=== PATIENT | female | born 1940 | race Asian ===

== ENCOUNTER 2016-12-22 08:53 | Outpatient (CLI) | payer MEDICARE, OTHER | END 2016-12-22 08:54 | disposition home or self-care (01) | DX: N28.9 Disorder of kidney and ureter, unspecified (principal); E78.5 Hyperlipidemia, unspecified; D64.9 Anemia, unspecified ==

== ENCOUNTER 2017-05-04 12:14 | Emergency (ER) | payer MEDICARE, OTHER ==
--- NOTE | 2017-05-04 12:28 | ED Physician Documentation ---
PD HPI CHEST PAIN - Stated complaint Stated Complaint: SLOW HEART BEAT - History obtained from History obtained from: Patient PD PAST MEDICAL HISTORY - Past Medical History Cardiovascular: Hypertension, High cholesterol GI: GERD - Past Surgical History Past Surgical History: Yes Cardiovascular: CABG - Present Medications Home Medications: Ambulatory Orders Medication Instructions Recorded Confirmed Aspirin Chewable [[place] 81 mg PO DAILY 06/04/13 12/04/15 Aspirin] Esomeprazole Magnesium [Nexium] 40 mg PO DAILY 06/04/13 12/04/15 Fluocinonide/Emollient Base 15 gm TP BID 06/04/13 12/04/15 [Fluocinonide-Emol 0.05% Cream] Hydrochlorothiazide 12.5 mg PO DAILY 06/04/13 12/04/15 amLODIPine [Norvasc] 10 mg PO DAILY 06/04/13 12/04/15 Cephalexin [Keflex] 500 mg PO QID 12/04/15 12/04/15 - Allergies Allergies/Adverse Reactions: Allergies Allergy/AdvReac Type Severity Reaction Status Date / Time No Known Drug Allergies Allergy Unverified 06/04/13 10:08 - Social History Does the pt smoke?: No Smoking Status: Never smoker Does the pt drink ETOH?: No Does the pt have substance abuse?: No - Immunizations Immunizations are current?: Yes Results - Vitals Vitals: Vital Signs - 24 hr 05/04/17 12:30 Temperature 36.2 C L Heart Rate 74 Respiratory 18 Rate Blood Pressure 160/77 H O2 Saturation 100 Oxygen O2 Source Room air
--- NOTE | 2017-05-04 13:00 | ED Physician Documentation ---
PD HPI SYNCOPE - Stated complaint Stated Complaint: SLOW HEART BEAT - Chief complaint Chief Complaint: Cardiac - History obtained from History obtained from: Patient - History of Present Illness Witnessed: Witnessed (was walking with friends in [place], up an incline, feeling hot and sweaty, got lightheaded and fainted. She has continued to feel lightheaded to some degree since that time. No near syncope. Seen in office today and had heart rate noted in 40s. Normal BP. Referred to ED for further evaluation.) Timing - onset: How many days ago (2) Duration: Seconds Preceding symptoms: Light headed. No: Headache, Chest pain, Abdominal pain Associated symptoms: No: Incontinant of urine, Headache, Vision changes, Chest pain, Abdominal pain Contributing factors: Decreased PO intake (was eating and drinking normal amount but was sweating and warm the past couple of days.). No: Recent med change, Just stood up Injury occurred: No: Fell, Head injury Similar symptoms before: Has not had sx before Recently seen: Clinic (today) Review of Systems Constitutional: denies: Fever, Chills Nose: denies: Rhinorrhea / runny nose, Congestion Throat: denies: Sore throat Cardiac: reports: Pedal edema (at times, not currently). denies: Chest pain / pressure, Palpitations, Calf pain Respiratory: denies: Cough GI: denies: Nausea, Vomiting, Diarrhea, Bloody / black stool : denies: Dysuria, Frequency Skin: denies: Rash, Lesions Neurologic: denies: Generalized weakness, Focal weakness, Numbness, Altered mental status, Headache Endocrine: denies: Weight loss Immunocompromised: denies: Immunocompromised PD PAST MEDICAL HISTORY - Past Medical History Past Medical History: Yes Cardiovascular: Hypertension, High cholesterol GI: GERD - Past Surgical History Past Surgical History: Yes Cardiovascular: CABG - Present Medications Home Medications: Ambulatory Orders Medication Instructions Recorded Confirmed Aspirin Chewable [[place] 81 mg PO DAILY 06/04/13 12/04/15 Aspirin] Esomeprazole Magnesium [Nexium] 40 mg PO DAILY 06/04/13 12/04/15 Fluocinonide/Emollient Base 15 gm TP BID 06/04/13 12/04/15 [Fluocinonide-Emol 0.05% Cream] Hydrochlorothiazide 12.5 mg PO DAILY 06/04/13 12/04/15 amLODIPine [Norvasc] 10 mg PO DAILY 06/04/13 12/04/15 Cephalexin [Keflex] 500 mg PO QID 12/04/15 12/04/15 - Allergies Allergies/Adverse Reactions: Allergies Allergy/AdvReac Type Severity Reaction Status Date / Time No Known Drug Allergies Allergy Unverified 06/04/13 10:08 - Living Situation Living Arrangement: reports: At home - Social History Does the pt smoke?: No Smoking Status: Never smoker Does the pt drink ETOH?: No Does the pt have substance abuse?: No - Immunizations Immunizations are current?: Yes PD ED PE NORMAL - Vitals Vital signs reviewed: Yes - General General: Alert and oriented X 3, No acute distress, Well developed/nourished - HEENT HEENT: Moist mucous membranes, Pharynx benign - Neck Neck: Supple, no meningeal sign, No adenopathy - Cardiac Cardiac: RRR, No murmur - Respiratory Respiratory: Clear bilaterally - Abdomen Abdomen: Soft, Non tender - Back Back: No CVA TTP, No spinal TTP - Derm Derm: Normal color, Warm and dry - Extremities Extremities: No tenderness to palpate, Normal ROM s pain, No edema, No calf tenderness / cord - Neuro Neuro: Alert and oriented X 3, health information administrator 2-12 intact, No motor deficit, No sensory deficit, Normal speech, Other - Psych Psych: Normal mood, Normal affect Results - Vitals Vitals: Oxygen O2 Source Room air - Labs Labs: Laboratory Tests 05/04/17 05/04/17 05/04/17 13:11 13:11 13:11 WBC 5.3 RBC 3.88 L Hgb 12.2 Hct 36.0 L MCV 92.8 MCH 31.4 H MCHC 33.8 RDW 13.2 Plt Count 247 MPV 8.0 Neut # 3.0 Lymph # 1.3 L Webb # 0.7 Eos # 0.2 Baso # 0.0 Absolute Nucleated RBC 0.00 Nucleated RBCs 0.0 Sodium 132 L Potassium 3.9 Chloride 101 Carbon Dioxide 21 Anion Gap 10.0 BUN 32 H Creatinine 1.7 H Estimated GFR (MDRD) 29 L Glucose 102 H Calcium 9.8 Magnesium 1.8 Total Bilirubin 1.2 H AST 40 ALT 33 Alkaline Phosphatase 166 H Troponin I < 0.04 Total Protein 8.6 H Albumin 4.2 Globulin 4.4 H Albumin/Globulin Ratio 1.0 Lipase 50 TSH 05/04/17 13:11 WBC RBC Hgb Hct MCV MCH MCHC RDW Plt Count MPV Neut # Lymph # Webb # Eos # Baso # Absolute Nucleated RBC Nucleated RBCs Sodium Potassium Chloride Carbon Dioxide Anion Gap BUN Creatinine Estimated GFR (MDRD) Glucose Calcium Magnesium Total Bilirubin AST ALT Alkaline Phosphatase Troponin I Total Protein Albumin Globulin Albumin/Globulin Ratio Lipase TSH 2.03 Departure - Departure Disposition: 01 Home, Self Care Clinical Impression: Bradycardia Syncope Qualifiers: Syncope type: unspecified Qualified Code(s): R55 - Syncope and collapse Condition: Stable Record reviewed to determine appropriate education?: Yes Instructions: ED Fainting Unkn Cause Follow-Up: Rik Magallon MD [Primary Care Provider] - Comments: Your heart rate has been normal here. Your basic blood tests are looking okay. No signs of heart attack or heart failure. At this point drink adequate fluids. Continue current medications. Follow-up with your primary care early next week. They potentially may want to do a portable heart monitor that you wear for several days to a week to ensure your heart rate does not go slow at other times. Recheck if recurrent symptoms of lightheadedness or fainting. Discharge Date/Time: 05/04/17 15:32
[2017-05-04 13:18] LABS: BASOPHILS % (AUTO) 0.9 %; EOSINOPHILS # (AUTO) 0.2 10^3/uL (0.0-0.7); EOSINOPHILS % (AUTO) 2.9 %; HGB - HEMOGLOBIN 12.2 g/dL (12.0-16.0); LYMPHOCYTES # (AUTO) 1.3 10^3/uL (1.5-3.5); LYMPHOCYTES % (AUTO) 25.5 %; MEAN CORPUSCULAR HEMOGLOBIN 31.4 pg (27.0-31.0); MEAN CORPUSCULAR HGB CONC 33.8 g/dL (32.0-36.0); MEAN CORPUSCULAR VOLUME 92.8 fL (81.0-99.0); MONOCYTES # (AUTO) 0.7 10^3/uL (0.0-1.0); MONOCYTES % (AUTO) 13.4 %; NEUTROPHILS % (AUTO) 57.3 %; RED BLOOD COUNT 3.88 10^6/uL (4.20-5.40); RED CELL DISTRIBUTION WIDTH 13.2 % (12.0-15.0); UNCORRECTED WHITE BLOOD COUNT 5.3 x10^3/uL; WHITE BLOOD COUNT 5.3 x10^3/uL (4.8-10.8)
[2017-05-04 13:34] LABS: BILIRUBIN,TOTAL 1.2 mg/dL (0.2-1.0); CALCIUM 9.8 mg/dL (8.5-10.3); CREATININE 1.7 mg/dL (0.4-1.0); MAGNESIUM 1.8 mg/dL (1.7-2.8); POTASSIUM 3.9 mmol/L (3.5-5.0); TOTAL PROTEIN 8.6 g/dL (6.7-8.2)
[2017-05-04 15:32] VITALS: BP 127/62
== END 2017-05-04 15:32 | disposition home or self-care (01) ==
LOC: ED 12:14
DX: R00.1 Bradycardia, unspecified (principal); R55 Syncope and collapse; I10 Essential (primary) hypertension; E78.00 Pure hypercholesterolemia, unspecified; I25.10 Atherosclerotic heart disease of native coronary artery without angina pectoris; Z95.1 Presence of aortocoronary bypass graft; K21.9 Gastro-esophageal reflux disease without esophagitis; Z79.82 Long term (current) use of aspirin
CPT/HCPCS: 36415; 80053; 83690; 83735; 84443; 84484; 85025; 93005; 99283; 99284

== ENCOUNTER 2017-05-10 11:13 | Outpatient (CLI) | payer MEDICARE, OTHER ==
--- NOTE | 2017-05-11 15:46 | Mammography Report ---
DIGITAL SCREENING MAMMOGRAM: 05/10/2017 CLINICAL INDICATION: A 77-year-old with family history of breast cancer, for screening. COMPARISON: 11/2009, 10/2007. TECHNIQUE: Routine CC and MLO projections were obtained of the breasts. FINDINGS: Scattered fibroglandular tissue is present within the breasts. There are no dominant natali s, suspicious microcalcifications, or secondary signs of malignancy. In comparison to the previous st udies, there are no significant changes. ASSESSMENT: NO MAMMOGRAPHIC EVIDENCE OF MALIGNANCY. NO SIGNIFICANT INTERVAL CHANGES. RECOMMENDATION: Screening mammography is recommended annually. BIRADS category 1 - negative. STANDARD QUALIFYING STATEMENTS 1. This examination was reviewed with the aid of Computed-Aided Detection (CAD). 2. A negative or benign imaging report should not delay biopsy if clinically suspicious findings are present. Consider surgical consultation if warranted. More than 5% of cancers are not identified by i maging. 3. Dense breasts may obscure an underlying neoplasm. JOB #: [id number] EXT JOB #:[id number]
== END 2017-05-10 11:14 | disposition home or self-care (01) ==
LOC: DI.N 11:13
PROVIDERS: ATTEND Family Medicine
DX: Z12.31 Encounter for screening mammogram for malignant neoplasm of breast (principal)
CPT/HCPCS: 77067

== ENCOUNTER 2017-05-10 20:17 | Outpatient (CLI) | payer MEDICARE, OTHER ==
[2017-05-10 19:06] LABS: BASOPHILS % (AUTO) 0.5 %; EOSINOPHILS # (AUTO) 0.2 10^3/uL (0.0-0.7); HCT - HEMATOCRIT 36.2 % (37.0-47.0); LYMPHOCYTES # (AUTO) 1.6 10^3/uL (1.5-3.5); LYMPHOCYTES % (AUTO) 30.2 %; MEAN CORPUSCULAR HEMOGLOBIN 31.3 pg (27.0-31.0); MEAN CORPUSCULAR HGB CONC 33.1 g/dL (32.0-36.0); MEAN CORPUSCULAR VOLUME 94.6 fL (81.0-99.0); MEAN PLATELET VOLUME 9.7 fL (7.9-10.8); MONOCYTES # (AUTO) 0.7 10^3/uL (0.0-1.0); MONOCYTES % (AUTO) 14.1 %; NEUTROPHILS # (AUTO) 2.8 10^3/uL (1.5-6.6); NEUTROPHILS % (AUTO) 52.2 %; NUCLEATED RED BLOOD CELLS AUTO 0.1 /100WBC; RED BLOOD COUNT 3.83 10^6/uL (4.20-5.40); RED CELL DISTRIBUTION WIDTH 12.7 % (12.0-15.0); UNCORRECTED WHITE BLOOD COUNT 5.3 x10^3/uL; WHITE BLOOD COUNT 5.3 x10^3/uL (4.8-10.8)
[2017-05-10 19:12] LABS: CALCIUM 9.6 mg/dL (8.5-10.3); CREATININE 1.8 mg/dL (0.4-1.0); POTASSIUM 3.6 mmol/L (3.5-5.0)
== END 2017-05-10 20:18 | disposition home or self-care (01) ==
LOC: LAB.WCP 20:17
PROVIDERS: ATTEND Family Medicine
DX: R00.1 Bradycardia, unspecified (principal); I10 Essential (primary) hypertension; R55 Syncope and collapse; N28.9 Disorder of kidney and ureter, unspecified; D64.9 Anemia, unspecified
CPT/HCPCS: 36415; 80048; 84443; 85025

== ENCOUNTER 2017-05-15 17:36 | Outpatient (CLI) | payer MEDICARE, OTHER ==
[2017-05-15 13:17] LABS: CALCIUM 9.7 mg/dL (8.5-10.3); CREATININE 1.5 mg/dL (0.4-1.0); POTASSIUM 3.6 mmol/L (3.5-5.0)
== END 2017-05-15 17:37 | disposition home or self-care (01) ==
LOC: LAB.WCP 17:36
PROVIDERS: ATTEND Family Medicine
DX: E87.1 Hypo-osmolality and hyponatremia (principal)
CPT/HCPCS: 36415; 80048

== ENCOUNTER 2017-05-22 10:25 | Outpatient (CLI) | payer MEDICARE, OTHER ==
[2017-05-22 19:35] LABS: CALCIUM 9.9 mg/dL (8.5-10.3); CREATININE 1.3 mg/dL (0.4-1.0); POTASSIUM 3.9 mmol/L (3.5-5.0)
== END 2017-05-22 10:26 | disposition home or self-care (01) ==
LOC: LAB.WCP 10:25
PROVIDERS: ATTEND Family Medicine
DX: E78.1 Pure hyperglyceridemia (principal)
CPT/HCPCS: 36415; 80048

== ENCOUNTER 2017-06-28 14:47 | Outpatient (CLI) | payer MEDICARE, OTHER ==
[2017-06-28 19:49] LABS: CREATININE 1.5 mg/dL (0.4-1.0); POTASSIUM 4.2 mmol/L (3.5-5.0)
== END 2017-06-28 14:48 | disposition home or self-care (01) ==
LOC: LAB.WCP 14:47
PROVIDERS: ATTEND Family Medicine
DX: E87.1 Hypo-osmolality and hyponatremia (principal)
CPT/HCPCS: 36415; 80048

== ENCOUNTER 2017-08-03 08:00 | Outpatient (CLI) | payer MEDICARE, OTHER | END 2017-08-03 08:01 | disposition home or self-care (01) | LOC: LAB.WCP 08:00 | PROVIDERS: ATTEND Family Medicine | DX: L25.9 Unspecified contact dermatitis, unspecified cause (principal) | CPT/HCPCS: 87070; 87205 ==

== ENCOUNTER 2018-05-28 08:51 | Outpatient (CLI) | payer MEDICARE, OTHER ==
[2018-05-28 12:14] LABS: BASOPHILS % (AUTO) 0.8 %; EOSINOPHILS # (AUTO) 0.2 10^3/uL (0.0-0.7); EOSINOPHILS % (AUTO) 5.1 %; HGB - HEMOGLOBIN 13.4 g/dL (12.0-16.0); LYMPHOCYTES # (AUTO) 1.9 10^3/uL (1.5-3.5); LYMPHOCYTES % (AUTO) 38.7 %; MEAN CORPUSCULAR HEMOGLOBIN 33.5 pg (27.0-31.0); MEAN CORPUSCULAR HGB CONC 34.2 g/dL (32.0-36.0); MEAN CORPUSCULAR VOLUME 97.8 fL (81.0-99.0); MONOCYTES # (AUTO) 0.7 10^3/uL (0.0-1.0); MONOCYTES % (AUTO) 13.8 %; NEUTROPHILS % (AUTO) 41.6 %; PLT - PLATELET COUNT 215 10^3/uL (130-450); RED CELL DISTRIBUTION WIDTH 13.6 % (12.0-15.0); WHITE BLOOD COUNT 4.9 x10^3/uL (4.8-10.8)
[2018-05-28 12:32] LABS: ALBUMIN 3.5 g/dL (3.2-5.5); ALBUMIN/GLOBULIN RATIO 0.6 (1.0-2.2); ALKALINE PHOSPHATASE 102 IU/L (42-121); ALT ALANINE AMINOTRANSFERASE 102 IU/L (10-60); AST ASPARTATE AMINOTRANSFERASE 144 IU/L (10-42); BILIRUBIN,TOTAL 1.7 mg/dL (0.2-1.0); BUN - BLOOD UREA NITROGEN 26 mg/dL (6-20); CALCIUM 9.4 mg/dL (8.5-10.3); CARBON DIOXIDE - CO2 22 mmol/L (21-32); CHLORIDE 106 mmol/L (101-111); CHOL/HDL RATIO 3.8 (<4.4); CHOLESTEROL 197 mg/dL; CREATININE 1.3 mg/dL (0.4-1.0); GFR - MDRD 40 (>89); GLUCOSE 107 mg/dL (70-100); HDL CHOLESTEROL 52 mg/dL; LDL CHOLESTEROL,CALCULATED 116 mg/dL; LDL/HDL RATIO 2.2 (<4.4); SODIUM 136 mmol/L (135-145); TOTAL PROTEIN 9.5 g/dL (6.7-8.2); VLDL CHOLESTEROL 29 mg/dL
== END 2018-05-28 08:52 ==
LOC: LAB.WCP 08:51
PROVIDERS: ATTEND Family Medicine
DX: E78.5 Hyperlipidemia, unspecified (principal); R42 Dizziness and giddiness; N28.9 Disorder of kidney and ureter, unspecified; D64.9 Anemia, unspecified; F41.9 Anxiety disorder, unspecified; E87.1 Hypo-osmolality and hyponatremia; I10 Essential (primary) hypertension
CPT/HCPCS: 36415; 80053; 80061; 83721; 84443; 85025

== ENCOUNTER 2019-02-26 08:08 | Outpatient (CLI) | payer MEDICARE, OTHER ==
[2019-02-26 13:24] LABS: BASOPHILS # (AUTO) 0.1 10^3/uL (0.0-0.1); BASOPHILS % (AUTO) 1.4 %; EOSINOPHILS # (AUTO) 0.2 10^3/uL (0.0-0.7); EOSINOPHILS % (AUTO) 3.1 %; HGB - HEMOGLOBIN 12.4 g/dL (12.0-16.0); LYMPHOCYTES % (AUTO) 40.3 %; MEAN CORPUSCULAR HEMOGLOBIN 33.3 pg (27.0-31.0); MEAN CORPUSCULAR HGB CONC 33.3 g/dL (32.0-36.0); MEAN CORPUSCULAR VOLUME 100.2 fL (81.0-99.0); MEAN PLATELET VOLUME 10.2 fL (7.9-10.8); MONOCYTES # (AUTO) 0.7 10^3/uL (0.0-1.0); MONOCYTES % (AUTO) 13.1 %; NEUTROPHILS # (AUTO) 2.1 10^3/uL (1.5-6.6); NEUTROPHILS % (AUTO) 42.1 %; PLT - PLATELET COUNT 203 10^3/uL (130-450); RED BLOOD COUNT 3.73 10^6/uL (4.20-5.40); RED CELL DISTRIBUTION WIDTH 13.1 % (12.0-15.0); WHITE BLOOD COUNT 5.1 x10^3/uL (4.8-10.8)
[2019-02-26 13:39] LABS: ALBUMIN/GLOBULIN RATIO 0.5 (1.0-2.2); ALKALINE PHOSPHATASE 113 IU/L (42-121); ALT ALANINE AMINOTRANSFERASE 129 IU/L (10-60); AST ASPARTATE AMINOTRANSFERASE 216 IU/L (10-42); BILIRUBIN,TOTAL 1.1 mg/dL (0.2-1.0); BUN - BLOOD UREA NITROGEN 21 mg/dL (6-20); CALCIUM 9.1 mg/dL (8.5-10.3); CARBON DIOXIDE - CO2 21 mmol/L (21-32); CHLORIDE 106 mmol/L (101-111); CHOL/HDL RATIO 3.7 (<4.4); CHOLESTEROL 174 mg/dL; CREATININE 1.3 mg/dL (0.4-1.0); GFR - MDRD 39 (>89); GLUCOSE 97 mg/dL (70-100); HDL CHOLESTEROL 47 mg/dL; LDL CHOLESTEROL,CALCULATED 102 mg/dL; LDL/HDL RATIO 2.2 (<4.4); SODIUM 136 mmol/L (135-145); TOTAL PROTEIN 8.9 g/dL (6.7-8.2); VLDL CHOLESTEROL 25 mg/dL
== END 2019-02-26 08:09 | disposition home or self-care (01) ==
LOC: LAB.WCP 08:08
PROVIDERS: ATTEND Family Medicine
DX: N28.9 Disorder of kidney and ureter, unspecified (principal); E78.5 Hyperlipidemia, unspecified; D64.9 Anemia, unspecified
CPT/HCPCS: 36415; 80053; 80061; 83721; 85025

== ENCOUNTER 2019-03-06 08:00 | Outpatient (CLI) | payer MEDICARE, OTHER ==
[2019-03-06 19:05] LABS: ALBUMIN 3.4 g/dL (3.2-5.5); ALBUMIN/GLOBULIN RATIO 0.5 (1.0-2.2); BILIRUBIN,TOTAL 1.9 mg/dL (0.2-1.0); CALCIUM 9.1 mg/dL (8.5-10.3); CREATININE 1.3 mg/dL (0.4-1.0)
[2019-03-07 14:11] LABS: HEPATITIS B SURFACE ANTIGEN NON-REACTIVE (NON-REACTIVE); HEPATITIS C ANTIBODY NON-REACTIVE (NON-REACTIVE)
== END 2019-03-06 23:59 | disposition home or self-care (01) ==
LOC: LAB.WCP 08:00
PROVIDERS: ATTEND Family Medicine
DX: R74.8 Abnormal levels of other serum enzymes (principal)
CPT/HCPCS: 36415; 80053; 86317; 86704; 86709; 86803; 87340

== ENCOUNTER 2019-03-13 07:11 | Outpatient (CLI) | payer MEDICARE, OTHER ==
--- NOTE | 2019-03-13 11:49 | Ultrasound Report ---
Reason: ELEVATED LIVER ENZYMES Procedure Date: 03/13/2019 Accession Number: [id number] / [id number] Procedure: US - Abdomen Complete CPT Code: FULL RESULT: EXAM: ABDOMEN ULTRASOUND EXAM DATE: 03/13/2019 08:13 AM. CLINICAL HISTORY: Elevated liver enzymes. COMPARISON: None. TECHNIQUE: Real-time scanning was performed with static images obtained. FINDINGS: Liver: Size of the liver appears subjectively small with nodular contour and heterogeneous echotexture which limits evaluation for masses, no masses seen. Maximal dimension is at least 14.4 cm. Main portal vein flow: Hepatopetal. Gallbladder: Calculi is seen within the gallbladder, not all are mobile and the gallbladder is distended. The sonographic Comer sign is negative. There is no pericholecystic fluid or thickening of the gallbladder wall. Biliary System: Common bile duct measures 7 mm. No intrahepatic or extrahepatic ductal dilatation. Pancreas: Visualized portion is unremarkable. Kidneys: Right: 11.1 cm longitudinally. Normal. No contour-deforming mass, stones, or hydronephrosis. Left: 11.4 cm longitudinally. Normal. No contour-deforming mass, stones, or hydronephrosis. Spleen: 10.8 cm. Normal in size and echotexture. Aorta and Inferior Vena Cava: Unremarkable. Other: None. IMPRESSION: Cholelithiasis without sonographic findings of cholecystitis. Suggestion of cirrhotic configuration of liver parenchyma. RADIA
== END 2019-03-13 07:12 | disposition home or self-care (01) ==
LOC: DI 07:11
PROVIDERS: ATTEND Family Medicine
DX: K80.20 Calculus of gallbladder without cholecystitis without obstruction (principal)
CPT/HCPCS: 76700

== ENCOUNTER 2020-01-30 07:00 | Outpatient (CLI) | payer MEDICARE, OTHER ==
[2020-01-30 12:54] LABS: BASOPHILS # (AUTO) 0.1 10^3/uL (0.0-0.1); EOSINOPHILS # (AUTO) 0.2 10^3/uL (0.0-0.7); EOSINOPHILS % (AUTO) 3.3 %; HGB - HEMOGLOBIN 11.6 g/dL (12.0-16.0); LYMPHOCYTES # (AUTO) 2.2 10^3/uL (1.5-3.5); LYMPHOCYTES % (AUTO) 38.4 %; MEAN CORPUSCULAR HEMOGLOBIN 32.4 pg (27.0-31.0); MEAN CORPUSCULAR HGB CONC 32.9 g/dL (32.0-36.0); MEAN CORPUSCULAR VOLUME 98.6 fL (81.0-99.0); MEAN PLATELET VOLUME 11.5 fL (7.9-10.8); MONOCYTES # (AUTO) 0.5 10^3/uL (0.0-1.0); MONOCYTES % (AUTO) 9.4 %; NEUTROPHILS # (AUTO) 2.7 10^3/uL (1.5-6.6); NEUTROPHILS % (AUTO) 47.6 %; PLT - PLATELET COUNT 210 10^3/uL (130-450); RED BLOOD COUNT 3.58 10^6/uL (4.20-5.40); RED CELL DISTRIBUTION WIDTH 13.5 % (12.0-15.0); WHITE BLOOD COUNT 5.7 x10^3/uL (4.8-10.8)
[2020-01-30 13:06] LABS: INR 1.2 (0.8-1.2); PT - PROTHROMBIN TIME 13.7 secs (9.9-12.6)
[2020-01-30 13:49] LABS: % IRON SATURATION 26 % (20-50); ALBUMIN 2.8 g/dL (3.2-5.5); ALBUMIN/GLOBULIN RATIO 0.4 (1.0-2.2); ALKALINE PHOSPHATASE 253 IU/L (42-121); ALT ALANINE AMINOTRANSFERASE 86 IU/L (10-60); AST ASPARTATE AMINOTRANSFERASE 133 IU/L (10-42); BILIRUBIN,TOTAL 1.7 mg/dL (0.2-1.0); BUN - BLOOD UREA NITROGEN 18 mg/dL (6-20); CARBON DIOXIDE - CO2 21 mmol/L (21-32); CHLORIDE 105 mmol/L (101-111); CHOL/HDL RATIO 6.3 (<4.4); CHOLESTEROL 233 mg/dL; CREATININE 1.2 mg/dL (0.4-1.0); GLUCOSE 101 mg/dL (70-100); HDL CHOLESTEROL 37 mg/dL; IRON 87 ug/dL (28-170); LDL CHOLESTEROL,CALCULATED 175 mg/dL; LDL/HDL RATIO 4.7 (<4.4); SODIUM 132 mmol/L (135-145); TOTAL IRON BINDING CAPACITY 339 ug/dL (250-450); TOTAL PROTEIN 10.1 g/dL (6.7-8.2); TRANSFERRIN 242 mg/dL (192-382); VLDL CHOLESTEROL 21 mg/dL
== END 2020-01-30 23:59 | disposition home or self-care (01) ==
LOC: LAB.WCP 07:00
PROVIDERS: ATTEND Family Medicine
DX: E78.5 Hyperlipidemia, unspecified (principal); D64.9 Anemia, unspecified; R94.5 Abnormal results of liver function studies
CPT/HCPCS: 36415; 80053; 80061; 82728; 83540; 83721; 84466; 85025; 85610

== ENCOUNTER 2020-02-05 08:34 | Outpatient (CLI) | payer MEDICARE, OTHER ==
[2020-02-07 23:20] LABS: LIVER KIDNEY MICROSOME AB <20.0 U
== END 2020-02-05 23:59 | disposition home or self-care (01) ==
LOC: LAB.WCP 08:34
PROVIDERS: ATTEND Family Medicine
DX: K74.60 Unspecified cirrhosis of liver (principal)
CPT/HCPCS: 36415; 81599; 82103; 82390; 86038; 86376

== ENCOUNTER 2020-07-15 16:07 | Emergency (ER) | payer MEDICARE, OTHER ==
--- NOTE | 2020-07-15 16:44 | ED Physician Documentation ---
PD HPI DYSPNEA - Stated complaint Stated Complaint: SOA, "BRAIN FOG" - Chief complaint Chief Complaint: Resp - History obtained from History obtained from: Patient - History of Present Illness Timing - onset: How many days ago (several) Timing - onset during: Rest (now dyspnea even at rest.), Light activity (initially) Timing - duration: Days (several) Timing - details: Gradual onset, Still present (considerably worse over just few days) Inciting event(s): No: Out of meds, URI Improved by: Rest, Sitting up Worsened by: Exertion (minimal, just walking 15-20 feet to bathroom, consicderable dyspnea now.) Associated symptoms: Chest pain / discomfort (tightness), Bilateral edema (mild). No: Fever, Cough, Wheezing Similar symptoms before: Diagnosis (had CAD in the past, with CABG about 5 years ago, and was doing okay. Has not seen Tool Checker for couple of years. Had CABG at [facility]. Not sure of balance assembler (seen in clinic in [place]).) Recently seen: Not recently seen Review of Systems Constitutional: denies: Fever, Chills Nose: denies: Rhinorrhea / runny nose, Congestion Throat: denies: Sore throat Cardiac: reports: Chest pain / pressure (tightness), Pedal edema (mild). denies: Palpitations, Calf pain Respiratory: reports: Dyspnea. denies: Cough, Wheezing GI: denies: Abdominal Pain, Nausea, Vomiting, Diarrhea, Bloody / black stool Skin: denies: Rash, Lesions Neurologic: reports: Generalized weakness. denies: Focal weakness, Numbness, Near syncope Endocrine: denies: Easy bruising / bleeding PD PAST MEDICAL HISTORY - Past Medical History Cardiovascular: Hypertension, High cholesterol Respiratory: None Neuro: None Endocrine/Autoimmune: None GI: GERD - Past Surgical History Past Surgical History: Yes Cardiovascular: CABG - Present Medications Home Medications: Ambulatory Orders Medication Instructions Recorded Confirmed Aspirin Chewable [[place] 81 mg PO DAILY 06/04/13 12/04/15 Aspirin] Esomeprazole Magnesium [Nexium] 40 mg PO DAILY 06/04/13 12/04/15 Fluocinonide/Emollient Base 15 gm TP BID 06/04/13 12/04/15 [Fluocinonide-Emol 0.05% Cream] Hydrochlorothiazide 12.5 mg PO DAILY 06/04/13 12/04/15 amLODIPine [Norvasc] 10 mg PO DAILY 06/04/13 12/04/15 Cephalexin [Keflex] 500 mg PO QID 12/04/15 12/04/15 - Allergies Allergies/Adverse Reactions: Allergies Allergy/AdvReac Type Severity Reaction Status Date / Time No Known Drug Allergies Allergy Unverified 07/15/20 16:26 - Living Situation Living Situation: reports: With spouse/s.o. Living Arrangement: reports: At home - Social History Does the pt smoke?: No Smoking Status: Never smoker Does the pt drink ETOH?: No Does the pt have substance abuse?: No - Immunizations Immunizations are current?: Yes PD ED PE NORMAL - Vitals Vital signs reviewed: Yes - General General: Alert and oriented X 3, No acute distress (when rested, but has considerable dyspnea just walking to bathroom in room.), Well developed/nourished - HEENT HEENT: Pharynx benign - Neck Neck: Supple, no meningeal sign, No adenopathy - Cardiac Cardiac: Other (1/6 murmur left sternal border). No: RRR (irregular but rate controlled) - Respiratory Respiratory: No: Clear bilaterally (fine crackles lower third both sides. No wheezing nor coarse sounds. ) - Abdomen Abdomen: Soft, Non tender - Back Back: No CVA TTP - Derm Derm: Normal color, Warm and dry - Extremities Extremities: No deformity, No tenderness to palpate, No calf tenderness / cord, Other (mild 1+ edema both lower legs.) - Neuro Neuro: Alert and oriented X 3, No motor deficit, Normal speech Results - Vitals Vitals: Vital Signs - 24 hr 07/15/20 07/15/20 07/15/20 16:21 18:26 20:00 Temperature 36.6 C Heart Rate 84 74 77 Respiratory 14 18 21 Rate Blood Pressure 123/70 132/67 H 120/71 O2 Saturation 98 99 95 07/15/20 20:47 Temperature 36.8 C Heart Rate 77 Respiratory 18 Rate Blood Pressure 122/80 O2 Saturation 98 Oxygen O2 Source Room air - EKG (time done) 16:18 Rate: Rate (enter#) (90) Rhythm: Atrial fibrillation [place]: Normal QRS: Poor R wave progression Ischemia: ST depression (lateral leads, mild), T wave inversion. No: ST elevation c/w ischemia Compare to prior EKG: Old EKG unavailable - Labs Labs: Microbiology 07/15/20 17:58 Occult Blood - Final Stool Laboratory Tests 07/15/20 07/15/20 07/15/20 16:46 16:46 16:46 WBC 6.8 RBC 2.58 L Hgb 8.3 L Hct 25.0 L MCV 96.9 MCH 32.2 H MCHC 33.2 RDW 15.1 H Plt Count 256 MPV 10.1 Neut # (Auto) 4.1 Lymph # (Auto) 1.7 [place] # (Auto) 0.8 Eos # (Auto) 0.1 Baso # (Auto) 0.1 Absolute Nucleated RBC 0.00 Nucleated RBC % 0.0 Sodium 130 L Potassium 3.5 Chloride 105 Carbon Dioxide 14 L Anion Gap 11.0 BUN 31 H Creatinine 1.8 H Estimated GFR (MDRD) 27 L Glucose 160 H Calcium 8.5 Magnesium 2.0 Iron TIBC % Saturation Transferrin Total Bilirubin 5.5 H AST 192 H ALT 81 H Alkaline Phosphatase 324 H Troponin I High Sens 27.1 H* B-Natriuretic Peptide Total Protein 9.9 H Albumin 2.2 L Globulin 7.7 H Albumin/Globulin Ratio 0.3 L Lipase 73 H 07/15/20 07/15/20 07/15/20 16:46 16:46 19:12 WBC RBC Hgb Hct MCV MCH MCHC RDW Plt Count MPV Neut # (Auto) Lymph # (Auto) [place] # (Auto) Eos # (Auto) Baso # (Auto) Absolute Nucleated RBC Nucleated RBC % Sodium Potassium Chloride Carbon Dioxide Anion Gap BUN Creatinine Estimated GFR (MDRD) Glucose Calcium Magnesium Iron 49 TIBC 402 % Saturation 12 L Transferrin 287 Total Bilirubin AST ALT Alkaline Phosphatase Troponin I High Sens 25.7 H* B-Natriuretic Peptide 1203 H Total Protein Albumin Globulin Albumin/Globulin Ratio Lipase - Rads (name of study) chest xray Radiology: Prelim report reviewed (enlarged heart, vascular congestion c/w CHF. ), See rad report PD MEDICAL DECISION MAKING - ED course Complexity details: reviewed results, considered differential (patient with good sats, but very marked VIERA just to bathroom (15 feet). Has findings c/w CHF, but ECG with some ischemia. So concerning for ischemic cause/heart failure/ unstable angina. Needs to have cardiac eval.), d/w patient, d/w account consultant (Hospitalist at [facility], who accepts transfer of patient to higher level of care. ) Departure - Departure Disposition: 02 Transfer Acute Care Hosp Clinical Impression: Acute dyspnea, Cardiac ischemia, Elevated liver enzymes Anemia, iron deficiency Qualifiers: Iron deficiency anemia type: unspecified iron deficiency Qualified Code(s): D50.9 - Iron deficiency anemia, unspecified CHF (congestive heart failure) Qualifiers: Heart failure type: unspecified Heart failure chronicity: unspecified Qualified Code(s): I50.9 - Heart failure, unspecified Condition: Stable Record reviewed to determine appropriate education?: Yes Discharge Date/Time: 07/15/20 18:44
[2020-07-15 16:56] LABS: BASOPHILS # (AUTO) 0.1 10^3/uL (0.0-0.1); BASOPHILS % (AUTO) 1.5 %; EOSINOPHILS # (AUTO) 0.1 10^3/uL (0.0-0.7); EOSINOPHILS % (AUTO) 1.3 %; HGB - HEMOGLOBIN 8.3 g/dL (12.0-16.0); LYMPHOCYTES # (AUTO) 1.7 10^3/uL (1.5-3.5); LYMPHOCYTES % (AUTO) 24.7 %; MEAN CORPUSCULAR HEMOGLOBIN 32.2 pg (27.0-31.0); MEAN CORPUSCULAR HGB CONC 33.2 g/dL (32.0-36.0); MEAN CORPUSCULAR VOLUME 96.9 fL (81.0-99.0); MEAN PLATELET VOLUME 10.1 fL (7.9-10.8); MONOCYTES # (AUTO) 0.8 10^3/uL (0.0-1.0); MONOCYTES % (AUTO) 12.2 %; NEUTROPHILS # (AUTO) 4.1 10^3/uL (1.5-6.6); NEUTROPHILS % (AUTO) 59.9 %; PLT - PLATELET COUNT 256 10^3/uL (130-450); RED BLOOD COUNT 2.58 10^6/uL (4.20-5.40); RED CELL DISTRIBUTION WIDTH 15.1 % (12.0-15.0); WHITE BLOOD COUNT 6.8 x10^3/uL (4.8-10.8)
[2020-07-15] MEDS ORDERED: FUROSEMIDE 20 MG/2 ML VIAL IVP STA (17:09)
[2020-07-15 17:18] LABS: ALBUMIN 2.2 g/dL (3.2-5.5); ALBUMIN/GLOBULIN RATIO 0.3 (1.0-2.2); BILIRUBIN,TOTAL 5.5 mg/dL (0.2-1.0); CALCIUM 8.5 mg/dL (8.5-10.3); CREATININE 1.8 mg/dL (0.4-1.0); TOTAL PROTEIN 9.9 g/dL (6.7-8.2)
--- NOTE | 2020-07-15 17:38 | XRAY Report ---
PROCEDURE: Chest 1 View X-Ray INDICATIONS: Chest pain TECHNIQUE: One view of the chest was acquired. COMPARISON: 09/25/2012, 11/02/2010. FINDINGS: Surgical changes and devices: Multiple fixation plates and screws are again noted projecting over the mediastinum likely within the sternum. Lungs and pleura: There is pulmonary vascular prominence suggestive of mild edema with confluence in the left lung base which may represent developing consolidation versus atelectasis. No pleural effus ions or pneumothorax. Mediastinum: Mediastinal contours appear unchanged. Heart size is normal. Bones and chest wall: No suspicious bony lesions. Overlying soft tissues appear unremarkable. IMPRESSION: 1. Confluent left basilar opacities consistent with consolidation/pneumonia versus atelectasis. 2. Increased pulmonary vascular prominence suggestive of mild edema. Reviewed by: Abelardo Walsh MD on 07/15/2020 4:36 PM AKDT Approved by: Abelardo Walsh MD on 07/15/2020 4:36 PM AKDT Station ID: [id number]
[2020-07-15 18:15] LABS: % IRON SATURATION 12 % (20-50); IRON 49 ug/dL (28-170); TOTAL IRON BINDING CAPACITY 402 ug/dL (250-450); TRANSFERRIN 287 mg/dL (192-382)
[2020-07-15] MEDS ORDERED: NITROGLYCERIN SL 0.4 MG TABLET SL STA (18:35)
[2020-07-15] MEDS ORDERED: CLOPIDOGREL 75 MG TABLET PO STA (18:35)
[2020-07-15] MEDS ORDERED: HEPARIN 25000UNITS/500ML (D5W) 25,000 UNIT/500 ML BAG IV SCH (19:00)
[2020-07-15 20:47] VITALS: BP 122/80
== END 2020-07-15 18:44 | disposition short-term general hospital (02) ==
LOC: ED 16:07
DX: R06.00 Dyspnea, unspecified (principal); I25.9 Chronic ischemic heart disease, unspecified; I11.0 Hypertensive heart disease with heart failure; I50.9 Heart failure, unspecified; I25.810 Atherosclerosis of coronary artery bypass graft(s) without angina pectoris; R74.8 Abnormal levels of other serum enzymes; D50.9 Iron deficiency anemia, unspecified; I20.0 Unstable angina
CPT/HCPCS: 36415; 71045; 80053; 82272; 83540; 83690; 83735; 83880; 84466; 84484; 85025; 93005; 96374; 99284; 99285; A9270

== ENCOUNTER 2020-07-15 20:46 | Outpatient (CLI) | payer MEDICARE, OTHER | END 2020-07-15 20:47 | disposition short-term general hospital (02) | LOC: EMS 20:46 | PROVIDERS: ATTEND Surgery | DX: I50.9 Heart failure, unspecified (principal); I20.0 Unstable angina; D64.9 Anemia, unspecified | CPT/HCPCS: A0425; A0426 ==

== ENCOUNTER 2020-07-26 11:52 | Emergency (ER) | payer MEDICARE, OTHER ==
--- NOTE | 2020-07-26 12:30 | ED Physician Documentation ---
History of Present Illness - Stated complaint Stated Complaint: LT ARM SWELLING - Chief complaint Chief Complaint: Ext Problem - History obtained from History obtained from: Patient, Family - History of Present Illness Timing: How many days ago (2) Pain level max: 5 Pain level now: 4 - Additonal information Additional information: patient is an 80-year-old female who presents to the emergency department with left arm pain for the past 3 days. She states that this started when she was at [facility] after repeated blood draws on the left arm. She states she has bilateral lower extremity swelling as well. Also has a right mid back pain. Worse with movement, better with rest. Patient states she has a history of liver disease but does not know what liver disease. She states that they started her on Eliquis, but her CAT scans were negative for a blood clot in her lungs. Her hydrochlorothiazide appears to have been stopped upon discharge from the hospital. No fevers. No cough. Denies any trauma. Patient states that she was admitted to [facility] for 9 days. Discharged 2 days ago Review of Systems Constitutional: denies: Fever, Chills Throat: denies: Sore throat Respiratory: denies: Cough GI: denies: Nausea, Vomiting, Diarrhea : denies: Dysuria Skin: denies: Rash Musculoskeletal: denies: Neck pain, Back pain Neurologic: denies: Headache PD PAST MEDICAL HISTORY - Past Medical History Past Medical History: Yes Cardiovascular: Hypertension, High cholesterol Respiratory: None Neuro: None Endocrine/Autoimmune: None GI: GERD - Past Surgical History Past Surgical History: Yes Cardiovascular: CABG - Present Medications Home Medications: Ambulatory Orders Medication Instructions Recorded Confirmed Aspirin Chewable [[place]olo 81 mg PO DAILY 06/04/13 12/04/15 Aspirin] Esomeprazole Magnesium [Nexium] 40 mg PO DAILY 06/04/13 12/04/15 Fluocinonide/Emollient Base 15 gm TP BID 06/04/13 12/04/15 [Fluocinonide-Emol 0.05% Cream] Hydrochlorothiazide 12.5 mg PO DAILY 06/04/13 12/04/15 amLODIPine [Norvasc] 10 mg PO DAILY 06/04/13 12/04/15 Cephalexin [Keflex] 500 mg PO QID 12/04/15 12/04/15 Cephalexin [Keflex] 500 mg PO Q6H #40 capsule 07/26/20 Furosemide [Lasix] 40 mg PO DAILY #14 tablet 07/26/20 Oxycodone HCl 5 mg PO Q8H PRN #14 tablet 07/26/20 - Allergies Allergies/Adverse Reactions: Allergies Allergy/AdvReac Type Severity Reaction Status Date / Time No Known Drug Allergies Allergy Verified 07/26/20 12:07 - Social History Does the pt smoke?: No Smoking Status: Never smoker Does the pt drink ETOH?: No Does the pt have substance abuse?: No - Immunizations Immunizations are current?: Yes PD ED PE NORMAL - Vitals Vital signs reviewed: Yes - General General: Alert and oriented X 3, No acute distress, Other (jaundiced) - HEENT HEENT: PERRL, Moist mucous membranes - Neck Neck: Supple, no meningeal sign - Cardiac Cardiac: RRR, Strong equal pulses - Respiratory Respiratory: No respiratory distress, Other (crackles B) - Abdomen Abdomen: Soft, Non tender, Non distended - Derm Derm: Warm and dry, No rash - Extremities Extremities: Other (2+ pitting edema, B LE, 1+ edema L UE from elbow to hand, mild erythema. NVI) - Neuro Neuro: Alert and oriented X 3 - Psych Psych: Normal mood, Normal affect Results - Vitals Vitals: Vital Signs - 24 hr 07/26/20 07/26/20 07/26/20 12:07 14:11 15:18 Temperature 36.1 C L 36.7 C Heart Rate 86 74 74 Respiratory 20 19 20 Rate Blood Pressure 111/55 L 130/73 118/64 O2 Saturation 96 100 98 Oxygen O2 Source Room air - EKG (time done) 1235 Rate: Rate (enter#) (80) Rhythm: Atrial fibrillation, Other (PVC) Intervals: RBBB (incomplete) Ischemia: Other (flat T waves) - Labs Labs: Laboratory Tests 07/26/20 07/26/20 07/26/20 12:31 12:31 12:31 WBC 10.1 RBC 2.63 L Hgb 8.4 L Hct 24.4 L MCV 92.8 MCH 31.9 H MCHC 34.4 RDW 16.6 H Plt Count 211 MPV 11.3 H Neut # (Auto) 8.0 H Lymph # (Auto) 1.0 L [place] # (Auto) 1.0 Eos # (Auto) 0.1 Baso # (Auto) 0.0 Absolute Nucleated RBC 0.00 Nucleated RBC % 0.0 PT INR APTT Anti-Xa Level Sodium 127 L Potassium 4.2 Chloride 101 Carbon Dioxide 15 L Anion Gap 11.0 BUN 37 H Creatinine 1.8 H Estimated GFR (MDRD) 27 L Glucose 112 H Calcium 8.1 L Total Bilirubin 7.5 H AST 214 H ALT 74 H Alkaline Phosphatase 219 H Troponin I High Sens 8.9 B-Natriuretic Peptide Total Protein 9.0 H Albumin 1.9 L Globulin 7.1 H Albumin/Globulin Ratio 0.3 L Lipase 65 H Urine Color Urine Clarity Urine pH Ur Specific [place] Urine Protein Urine Glucose (UA) Urine Ketones Urine Occult Blood Urine Nitrite Urine Bilirubin Urine Urobilinogen Ur Leukocyte Esterase Urine RBC Urine WBC Ur Squamous Epith Cells Urine Bacteria Ur Microscopic Review Urine Culture Comments 07/26/20 07/26/20 07/26/20 12:31 13:02 13:50 WBC RBC Hgb Hct MCV MCH MCHC RDW Plt Count MPV Neut # (Auto) Lymph # (Auto) [place] # (Auto) Eos # (Auto) Baso # (Auto) Absolute Nucleated RBC Nucleated RBC % PT 36.7 H INR 3.6 H APTT 35.5 H Anti-Xa Level TNP Sodium Potassium Chloride Carbon Dioxide Anion Gap BUN Creatinine Estimated GFR (MDRD) Glucose Calcium Total Bilirubin AST ALT Alkaline Phosphatase Troponin I High Sens B-Natriuretic Peptide 849 H Total Protein Albumin Globulin Albumin/Globulin Ratio Lipase Urine Color DARK YELLOW Urine Clarity CLEAR Urine pH 5.5 Ur Specific [place] 1.015 Urine Protein NEGATIVE Urine Glucose (UA) NEGATIVE Urine Ketones NEGATIVE Urine Occult Blood MODERATE H Urine Nitrite NEGATIVE Urine Bilirubin MODERATE H Urine Urobilinogen 1 (NORMAL) Ur Leukocyte Esterase TRACE H Urine RBC 11-25 H Urine WBC 6-10 H Ur Squamous Epith Cells FEW Squamous Urine Bacteria Few Ur Microscopic Review INDICATED Urine Culture Comments INDICATED - Rads (name of study) cxr Radiology: Prelim report reviewed, EMP read contemporaneously, See rad report (Increased bronchovascular markings in bilateral lung vivas which may represent chronic interstitial lung disease versus reactive airway disease. No focal infiltrate, pleural effusion or pneumothorax. ) L UE US Radiology: Prelim report reviewed, EMP read contemporaneously, See rad report PD MEDICAL DECISION MAKING - ED course Complexity details: reviewed old records, reviewed results, re-evaluated patient, considered differential, d/w patient, d/w family ED course: 80-year-old female with what appears to be a hematoma to the left antecubital fossa. This was wrapped with Zak bandage to provide pressure. Rings were removed from the left hand. Her laboratory studies are not significantly different from when she was in the hospital at [facility]. No evidence of DVT in the left upper extremity. Possible cellulitic component as well, therefore we will place her on antibiotics as well. Patient will need to follow-up with her doctor for abdominal MRI and further evaluation of her liver. Patient counseled regarding signs and symptoms for which I believe and urgent re-evaluation would be necessary. Patient with good understanding of and agreement to plan and is comfortable going home at this time This document was made in part using voice recognition software. While efforts are made to proofread this document, sound alike and grammatical errors may occur. Patient underwent several tests at [facility]. The records were obtained. The EGD/colonoscopy showed early esophageal varices, but no bleeding. Portal gastropathy. Friable duodenal mucosa. Pandiverticulosis, friable internal hemorrhoids and redundant colon. He was transfused 1 unit of packed red blood cells. She was to follow-up with nephrology and hematology. Patient had congestive heart failure, echocardiogram showed an EF of 60 to 65% with right- sided failure. She had moderate to severe tricuspid regurgitation as well. CT angio of the chest did not show any pulmonary embolus. VQ scan was low pr obability. Ultrasound of the left upper extremity showed a nonocclusive cephalic vein thrombus at the level of the antecubital fossa. She was started on Eliquis for this as well as her atrial fibrillation. Patient had a [id number] score of 5. Her TSH was normal. Her LFT elevations were consistent with hepatic cirrhosis on abdominal ultrasound. Also had a hydropic gallbladder with dependent gallstones and focal gallbladder wall thickening. Possible developing cholecystitis? She had trace. Elian fluid and a small right pleural effusion as well. Patient had denied any history of liver or gallbladder disease and alcohol use. Does have chronic kidney disease, her baseline creatinine is 1.2-1.8. She had hyponatremia as well, this was thought to possibly be secondary to thiazide use? 1. No evidence of deep venous thrombosis within the left upper extremity. 2. Irregular heterogeneous fluid collection in the left antecubital fossa. The findings likely represent a hematoma given reported history of recent blood draws. The differential includes an abscess although this is considered less likely given clinical history. Recommended clinical follow- up to demonstrate resolution. Departure - Departure Disposition: 01 Home, Self Care Clinical Impression: Liver dysfunction, Congestive heart failure with right heart failure, Peripheral edema Liver cirrhosis Qualifiers: Hepatic cirrhosis type: unspecified hepatic cirrhosis Ascites presence: unspecified Qualified Code(s): K74.60 - Unspecified cirrhosis of liver Atrial fibrillation Qualifiers: Atrial fibrillation type: unspecified Qualified Code(s): I48.91 - Unspecified atrial fibrillation Cellulitis Qualifiers: Site of cellulitis: extremity Site of cellulitis of extremity: upper extremity Laterality: left Qualified Code(s): L03.114 - Cellulitis of left upper limb Condition: Good Instructions: ED Infec Skin Cellulitis, ED CHF Right Side, ED Cirrhosis Liver Follow-Up: Funmilayo Navarro DO [Primary Care Provider] - Within 3 Days Prescriptions: Cephalexin [Keflex] 500 mg PO Q6H #40 capsule Furosemide [Lasix] 40 mg PO DAILY #14 tablet Oxycodone HCl 5 mg PO Q8H PRN #14 tablet PRN Reason: pain Comments: Wear the Zak wrap as needed at home. This will help with the swelling. Take all antibiotics until gone. Use the pain medication as needed for pain. Follow-up with your doctor within the next 3 days. You do need a liver MRI for further evaluation of your liver. We will restart you on Lasix as well. Do not drink alcohol or drive while on narcotic pain medicine. Note that many narcotic pain relievers also contain tylenol/acetaminophen. Please ensure that your total dose of acetaminophen from all sources does not exceed 3 grams (3000mg) per day. You may constipated on this medication, take a stool softener such as "Colace" twice a day while you are on it. Also recommend a [id number] laxative such as senna or MiraLAX any day that you do not have a bowel movement. If you received narcotic pain medication in the emergency department, do not drive or operate machinery for the next 24 hours. Discharge Date/Time: 07/26/20 15:28
[2020-07-26 12:44] LABS: BASOPHILS % (AUTO) 0.4 %; EOSINOPHILS # (AUTO) 0.1 10^3/uL (0.0-0.7); EOSINOPHILS % (AUTO) 0.5 %; HGB - HEMOGLOBIN 8.4 g/dL (12.0-16.0); LYMPHOCYTES % (AUTO) 9.6 %; MEAN CORPUSCULAR HEMOGLOBIN 31.9 pg (27.0-31.0); MEAN CORPUSCULAR HGB CONC 34.4 g/dL (32.0-36.0); MEAN CORPUSCULAR VOLUME 92.8 fL (81.0-99.0); MEAN PLATELET VOLUME 11.3 fL (7.9-10.8); MONOCYTES % (AUTO) 9.8 %; NEUTROPHILS % (AUTO) 79.2 %; PLT - PLATELET COUNT 211 10^3/uL (130-450); RED BLOOD COUNT 2.63 10^6/uL (4.20-5.40); RED CELL DISTRIBUTION WIDTH 16.6 % (12.0-15.0); WHITE BLOOD COUNT 10.1 x10^3/uL (4.8-10.8)
[2020-07-26] MEDS ORDERED: FUROSEMIDE 40 MG/4 ML VIAL IVP STA (12:46)
--- NOTE | 2020-07-26 13:07 | XRAY Report ---
PROCEDURE: Chest 1 View X-Ray INDICATIONS: chest pain TECHNIQUE: One view of the chest was acquired. COMPARISON: 07/15/2020 FINDINGS: Surgical changes and devices: Surgical hardware from prior median sternotomy is again seen. Lungs and pleura: No pleural effusions or pneumothorax. Increased bronchovascular markings in bilate ral hilar region are seen with mild bronchial wall thickening. No definite focal infiltrate. Mediastinum: Mediastinal contours appear normal. Heart size is enlarged. Bones and chest wall: No suspicious bony lesions. Overlying soft tissues appear unremarkable. IMPRESSION: Increased bronchovascular markings in bilateral lung vivas which may represent chronic interstitial lung disease versus reactive airway disease. No focal infiltrate, pleural effusion or pneumothorax. Reviewed by: Omer Green MD on 07/26/2020 12:05 PM REA Approved by: Omer Green MD on 07/26/2020 12:05 PM REA Station ID: [id number]
[2020-07-26 13:19] LABS: ALBUMIN 1.9 g/dL (3.2-5.5); ALBUMIN/GLOBULIN RATIO 0.3 (1.0-2.2); BILIRUBIN,TOTAL 7.5 mg/dL (0.2-1.0); CALCIUM 8.1 mg/dL (8.5-10.3); CREATININE 1.8 mg/dL (0.4-1.0)
[2020-07-26 13:20] LABS: INR 3.6 (0.8-1.2); PT - PROTHROMBIN TIME 36.7 secs (9.9-12.6)
[2020-07-26 13:27] LABS: PARTIAL THROMBOPLASTIN TIME 35.5 secs (24.9-33.3)
[2020-07-26 14:13] LABS: GLUCOSE, URINE (UA) NEGATIVE (NEGATIVE); KETONES,URINE (UA) NEGATIVE (NEGATIVE); LEUKOCYTE ESTERASE, URINE TRACE (NEGATIVE); NITRITE,URINE NEGATIVE (NEGATIVE); OCCULT BLOOD,URINE MODERATE (NEGATIVE); PH,URINE 5.5 PH (5.0-7.5); PROTEIN,URINE NEGATIVE (NEGATIVE); UROBILINOGEN,URINE 1 (NORMAL) E.U./dL (NORMAL)
--- NOTE | 2020-07-26 14:24 | Ultrasound Report ---
PROCEDURE: Duplex Ext Veins Left INDICATIONS: L upper arm swelling TECHNIQUE: Real-time imaging, as well as color and pulse Doppler interrogation, were performed of the lower extr emity deep veins from the inguinal ligament to the popliteal fossa. COMPARISON: None. FINDINGS: The deep veins are normally compressible, and free of intraluminal thrombus. Color and pu lse Doppler demonstrate normal phasic intraluminal flow. There is normal augmentation response to di stal compression maneuver. In the left antecubital fossa region, there is an irregular heterogeneous fluid collection measuring approximately 5.3 x 1.1 x 1.9 cm. No internal vascularity on color Doppler interrogation. The adjacen t cephalic vein is tortuous in appearance but appears patent. IMPRESSION: 1. No evidence of deep venous thrombosis within the left upper extremity. 2. Irregular heterogeneous fluid collection in the left antecubital fossa. The findings likely repres ent a hematoma given reported history of recent blood draws. The differential includes an abscess alt luca this is considered less likely given clinical history. Recommended clinical follow-up to stephy hernandez. Reviewed by: Abelardo Walsh MD on 07/26/2020 2:22 PM PDT Approved by: Abelardo Walsh MD on 07/26/2020 2:22 PM PDT Station ID: [id number]
[2020-07-26 14:31] LABS: BILIRUBIN,URINE MODERATE (NEGATIVE); CLARITY,URINE CLEAR (CLEAR); ICTOTEST,URINE POSITIVE
[2020-07-26] MEDS ORDERED: oxyCODONE 5 MG TABLET PO STA (14:40)
[2020-07-26] MEDS ORDERED: cefTRIAXone 1 GM VIAL IVP STA (14:40)
[2020-07-26 14:42] LABS: SQUAMOUS EPITHELIAL CELL,UR FEW Squamous (<= Few)
[2020-07-26 14:56] LABS: BACTERIA,URINE Few /HPF (None Seen)
[2020-07-26 15:19] VITALS: BP 118/64
== END 2020-07-26 15:28 | disposition home or self-care (01) ==
LOC: ED 11:52
DX: L03.114 Cellulitis of left upper limb (principal); I48.91 Unspecified atrial fibrillation; I13.0 Hypertensive heart and chronic kidney disease with heart failure and stage 1 through stage 4 chronic kidney disease, or unspecified chronic kidney disease; I50.810 Right heart failure, unspecified; N18.9 Chronic kidney disease, unspecified; K74.60 Unspecified cirrhosis of liver; Z79.01 Long term (current) use of anticoagulants
CPT/HCPCS: 36415; 71045; 80053; 81001; 83690; 83880; 84484; 85025; 85610; 85730; 87086; 87181; 93005; 93971; 96374; 96375; 99284; A9270; 81003; 85520

== ENCOUNTER 2020-07-29 14:26 | Outpatient (CLI) | payer MEDICARE, OTHER ==
[2020-07-29 15:16] LABS: BASOPHILS % (AUTO) 0.2 %; EOSINOPHILS % (AUTO) 0.3 %; HGB - HEMOGLOBIN 8.4 g/dL (12.0-16.0); LYMPHOCYTES # (AUTO) 1.5 10^3/uL (1.5-3.5); MEAN CORPUSCULAR HEMOGLOBIN 31.5 pg (27.0-31.0); MEAN CORPUSCULAR HGB CONC 33.6 g/dL (32.0-36.0); MEAN CORPUSCULAR VOLUME 93.6 fL (81.0-99.0); MEAN PLATELET VOLUME 10.3 fL (7.9-10.8); MONOCYTES % (AUTO) 8.8 %; NEUTROPHILS # (AUTO) 8.5 10^3/uL (1.5-6.6); NEUTROPHILS % (AUTO) 76.2 %; PLT - PLATELET COUNT 231 10^3/uL (130-450); RED BLOOD COUNT 2.67 10^6/uL (4.20-5.40); RED CELL DISTRIBUTION WIDTH 16.8 % (12.0-15.0); WHITE BLOOD COUNT 11.2 x10^3/uL (4.8-10.8)
[2020-07-29 15:26] LABS: CALCIUM 8.2 mg/dL (8.5-10.3); CREATININE 2.4 mg/dL (0.4-1.0)
--- NOTE | 2020-07-29 17:37 | XRAY Report ---
PROCEDURE: Shoulder 2 View RT INDICATIONS: LAB,SHOULDER JOINT PAIN,RT TECHNIQUE: 2 views of the shoulder were acquired. COMPARISON: Chest radiograph dated 07/26/2020. FINDINGS: Bones: No acute fractures or dislocations. Moderate hypertrophic osteoarthritic changes of the acro mioclavicular joint with associated undersurface spurring of the distal acromion and AC joint. No baltazar picious bony lesions. Visualized ribs appear intact. Soft tissues: No suspicious soft tissue calcifications. Diffuse opacities of the right hemithorax wh ich may be in part due to patient positioning. Compared to recent chest radiograph, this has progress ed. IMPRESSION: 1. Right shoulder without acute fracture or dislocation. 2. 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 3. Suggestion of interval progression of diffuse airspace disease of the right hemithorax. Recommend follow-up chest radiograph if patient has persistent cardiopulmonary symptoms. Reviewed by: Antwan Conde MD on 07/29/2020 5:36 PM PDT Approved by: Antwan Conde MD on 07/29/2020 5:36 PM PDT Station ID: [id number]
== END 2020-07-29 14:27 | disposition home or self-care (01) ==
LOC: LAB 14:26 → DI 14:27
PROVIDERS: ATTEND Family Medicine
DX: M19.011 Primary osteoarthritis, right shoulder (principal); I50.21 Acute systolic (congestive) heart failure; D64.9 Anemia, unspecified
CPT/HCPCS: 36415; 80048; 83880; 85025

== ENCOUNTER 2020-07-30 14:06 | Outpatient (CLI) | payer MEDICARE, OTHER | END 2020-07-30 14:07 | disposition critical access hospital (66) | LOC: EMS 14:06 | PROVIDERS: ATTEND Surgery | DX: R22.32 Localized swelling, mass and lump, left upper limb (principal); R22.43 Localized swelling, mass and lump, lower limb, bilateral | CPT/HCPCS: A0425; A0429 ==

== ENCOUNTER 2020-07-30 14:27 | Inpatient (IN) | payer MEDICARE, OTHER ==
[2020-07-30] MEDS ORDERED: FUROSEMIDE 40 MG/4 ML VIAL IVP STA (15:21)
[2020-07-30 15:38] LABS: BASOPHILS % (AUTO) 0.2 %; EOSINOPHILS # (AUTO) 0.1 10^3/uL (0.0-0.7); EOSINOPHILS % (AUTO) 0.5 %; HGB - HEMOGLOBIN 7.7 g/dL (12.0-16.0); LYMPHOCYTES # (AUTO) 1.7 10^3/uL (1.5-3.5); LYMPHOCYTES % (AUTO) 18.1 %; MEAN CORPUSCULAR HGB CONC 33.9 g/dL (32.0-36.0); MEAN CORPUSCULAR VOLUME 91.5 fL (81.0-99.0); MEAN PLATELET VOLUME 10.3 fL (7.9-10.8); MONOCYTES # (AUTO) 0.9 10^3/uL (0.0-1.0); MONOCYTES % (AUTO) 9.1 %; NEUTROPHILS # (AUTO) 6.6 10^3/uL (1.5-6.6); NEUTROPHILS % (AUTO) 70.2 %; PLT - PLATELET COUNT 234 10^3/uL (130-450); RED BLOOD COUNT 2.48 10^6/uL (4.20-5.40); RED CELL DISTRIBUTION WIDTH 16.8 % (12.0-15.0); WHITE BLOOD COUNT 9.4 x10^3/uL (4.8-10.8)
[2020-07-30 15:56] LABS: ALBUMIN 1.7 g/dL (3.2-5.5); ALBUMIN/GLOBULIN RATIO 0.2 (1.0-2.2); BILIRUBIN,TOTAL 9.4 mg/dL (0.2-1.0); CALCIUM 7.9 mg/dL (8.5-10.3); CREATININE 2.8 mg/dL (0.4-1.0); TOTAL PROTEIN 8.6 g/dL (6.7-8.2)
--- NOTE | 2020-07-30 16:02 | XRAY Report ---
PROCEDURE: Chest 1 View X-Ray INDICATIONS: Dyspnoea TECHNIQUE: One view of the chest was acquired. COMPARISON: 07/26/2020 FINDINGS: Surgical changes and devices: Median sternotomy changes for CABG again noted Lungs and pleura: Bilateral consolidative airspace opacities in both upper and lower lobes. No visibl e pleural effusion. There is fluid in the fissures bilaterally. Small Basesm B lines and increased in terstitial markings are noted. Mediastinum: Mediastinal contours appear normal. Heart size is enlarged similar to the prior study. Bones and chest wall: No suspicious bony lesions. Overlying soft tissues appear unremarkable. IMPRESSION: Bilateral airspace opacities and interstitial opacities which along with cardiomegaly are suggestive of moderate pulmonary edema secondary to congestive heart failure. Imaging features overlap with infectious pneumonia which will need clinical exclusion. Reviewed by: Surjit Escobedo MD on 07/30/2020 4:01 PM PDT Approved by: Surjit Escobedo MD on 07/30/2020 4:01 PM PDT Station ID: [id number]
--- NOTE | 2020-07-30 16:14 | ED Physician Documentation ---
History of Present Illness - Stated complaint Stated Complaint: LUE SWELLING - Chief complaint Chief Complaint: Ext Problem - History obtained from History obtained from: Patient, Family - History of Present Illness Timing: Today Pain level max: 0 Pain level now: 0 - Additonal information Additional information: 80-year-old female presents to the emergency department complaining of difficulty breathing today. She states she could not walk more than a few steps before she was out of breath. Has a history of congestive heart failure. states her home O2 was 65% on room air. Patient is on Eliquis for a DVT in the left upper extremity. Recently admitted to [facility] for similar. Has chronic anemia as well. Her last EF was 60%. She has right-sided heart failure. Review of Systems Ten Systems: 10 systems reviewed and negative Constitutional: denies: Fever, Chills Ears: denies: Ear pain Nose: denies: Rhinorrhea / runny nose, Congestion Throat: denies: Sore throat Cardiac: denies: Chest pain / pressure, Palpitations Respiratory: reports: Dyspnea. denies: Cough GI: denies: Vomiting, Diarrhea Skin: denies: Rash Musculoskeletal: denies: Neck pain, Back pain Neurologic: denies: Headache PD PAST MEDICAL HISTORY - Past Medical History Cardiovascular: Hypertension, High cholesterol Respiratory: None Neuro: None Endocrine/Autoimmune: None GI: GERD - Past Surgical History Past Surgical History: Yes Cardiovascular: CABG - Present Medications Home Medications: Ambulatory Orders Medication Instructions Recorded Confirmed Aspirin Chewable [St Manolo 81 mg PO DAILY 06/04/13 12/04/15 Aspirin] Esomeprazole Magnesium [Nexium] 40 mg PO DAILY 06/04/13 12/04/15 Fluocinonide/Emollient Base 15 gm TP BID 06/04/13 12/04/15 [Fluocinonide-Emol 0.05% Cream] Hydrochlorothiazide 12.5 mg PO DAILY 06/04/13 12/04/15 amLODIPine [Norvasc] 10 mg PO DAILY 06/04/13 12/04/15 Cephalexin [Keflex] 500 mg PO QID 12/04/15 12/04/15 Cephalexin [Keflex] 500 mg PO Q6H #40 capsule 07/26/20 Furosemide [Lasix] 40 mg PO DAILY #14 tablet 07/26/20 Oxycodone HCl 5 mg PO Q8H PRN #14 tablet 07/26/20 - Allergies Allergies/Adverse Reactions: Allergies Allergy/AdvReac Type Severity Reaction Status Date / Time No Known Drug Allergies Allergy Verified 07/30/20 14:39 - Social History Does the pt smoke?: No Smoking Status: Never smoker Does the pt drink ETOH?: No Does the pt have substance abuse?: No - Immunizations Immunizations are current?: Yes PD ED PE NORMAL - Vitals Vital signs reviewed: Yes - General General: Alert and oriented X 3, Other (Jaundiced thin female) - HEENT HEENT: PERRL, Moist mucous membranes, Pharynx benign - Neck Neck: Supple, no meningeal sign - Cardiac Cardiac: RRR - Respiratory Respiratory: Other (Crackles and diminished breath sounds bilaterally) - Abdomen Abdomen: Soft, Non tender, Non distended - Back Back: No CVA TTP - Derm Derm: Warm and dry, No rash - Extremities Extremities: Other (2+ bilateral lower extremity pitting edema) - Neuro Neuro: Alert and oriented X 3 - Psych Psych: Normal mood, Normal affect Results - Vitals Vitals: Vital Signs - 24 hr 07/30/20 07/30/20 07/30/20 14:30 15:00 16:53 Temperature 36.6 C Heart Rate 78 68 Respiratory 18 18 Rate Blood Pressure 97/52 L 98/49 L O2 Saturation 95 82 L 92 Oxygen O2 Source Room air - EKG (time done) 1544 Rate: Rate (enter#) (73) Rhythm: Atrial fibrillation Intervals: RBBB Ischemia: Non specific changes - Labs Labs: Laboratory Tests 07/30/20 07/30/20 07/30/20 15:30 15:30 15:30 WBC 9.4 RBC 2.48 L Hgb 7.7 L Hct 22.7 L MCV 91.5 MCH 31.0 MCHC 33.9 RDW 16.8 H Plt Count 234 MPV 10.3 Neut # (Auto) 6.6 Lymph # (Auto) 1.7 [place] # (Auto) 0.9 Eos # (Auto) 0.1 Baso # (Auto) 0.0 Absolute Nucleated RBC 0.02 Nucleated RBC % 0.2 Sodium 122 L Potassium 4.4 Chloride 96 L Carbon Dioxide 16 L Anion Gap 10.0 BUN 63 H Creatinine 2.8 H Estimated GFR (MDRD) 16 L Glucose 111 H Calcium 7.9 L Iron TIBC % Saturation Transferrin Total Bilirubin 9.4 H AST 203 H ALT 67 H Alkaline Phosphatase 296 H Troponin I High Sens B-Natriuretic Peptide 1183 H Total Protein 8.6 H Albumin 1.7 L Globulin 6.9 H Albumin/Globulin Ratio 0.2 L Lipase 39 07/30/20 07/30/20 15:30 15:30 WBC RBC Hgb Hct MCV MCH MCHC RDW Plt Count MPV Neut # (Auto) Lymph # (Auto) [place] # (Auto) Eos # (Auto) Baso # (Auto) Absolute Nucleated RBC Nucleated RBC % Sodium Potassium Chloride Carbon Dioxide Anion Gap BUN Creatinine Estimated GFR (MDRD) Glucose Calcium Iron 27 L TIBC 328 % Saturation 8 L Transferrin 234 Total Bilirubin AST ALT Alkaline Phosphatase Troponin I High Sens 13.6 B-Natriuretic Peptide Total Protein Albumin Globulin Albumin/Globulin Ratio Lipase - Rads (name of study) Chest x-ray Radiology: Prelim report reviewed, EMP read contemporaneously, See rad report (Bilateral airspace opacities and interstitial opacities which along with cardiomegaly are suggestive of moderate pulmonary edema secondary to congestive heart failure. ) PD MEDICAL DECISION MAKING - ED course Complexity details: reviewed old records, reviewed results, re-evaluated patient, considered differential, d/w patient, d/w family, d/w documentum consultant ED course: Patient with CHF, pulmonary edema and hypoxia. 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 O2 sat down to 65% at home. Patient was also significantly anemic and hyponatremic. These are both ongoing issues for her but are worse. Discussed the case with Dr. Iqbal, hospitalist who accepts. This document was made in part using voice recognition software. While efforts are made to proofread this document, sound alike and grammatical errors may occur. Departure - Departure Disposition: 66 [facility] DC/Xfer Clinical Impression: Hypoxia, Hyponatremia CHF exacerbation Qualifiers: Heart failure type: right-sided Qualified Code(s): I50.813 - Acute on chronic right heart failure Pulmonary edema Qualifiers: Chronicity: acute Qualified Code(s): J81.0 - Acute pulmonary edema Hepatic cirrhosis Qualifiers: Hepatic cirrhosis type: unspecified hepatic cirrhosis Ascites presence: without ascites Qualified Code(s): K74.60 - Unspecified cirrhosis of liver Atrial fibrillation Qualifiers: Atrial fibrillation type: unspecified chronic Qualified Code(s): I48.20 - Chronic atrial fibrillation, unspecified Condition: Stable Discharge Date/Time: 07/30/20 18:20
[2020-07-30] MEDS ORDERED: ONDANSETRON 4 MG/2 ML VIAL IVP PRN (17:17)
[2020-07-30] MEDS ORDERED: ALBUTEROL NEB 2.5 MG/3 ML INH PRN (17:17)
[2020-07-30] MEDS ORDERED: FUROSEMIDE 20 MG/2 ML VIAL IVP PRN (17:22)
[2020-07-30 18:09] LABS: % IRON SATURATION 8 % (20-50); IRON 27 ug/dL (28-170); TOTAL IRON BINDING CAPACITY 328 ug/dL (250-450); TRANSFERRIN 234 mg/dL (192-382)
--- NOTE | 2020-07-30 18:57 | HISTORY & PHYSICAL EXAMINATION ---
DATE OF SERVICE: 07/30/2020 Physician: Cynthia Iqbal MD HISTORY OF PRESENT ILLNESS: This is an 80-year-old white female with a history of liver cirrhosis of unknown etiology, cor pulmonale, diastolic heart failure, afib, history of coronary artery disease with remote CABG 10 years ago. She developed chest pain with shortness of breath approximately 3 weeks ago for which she came to this ER and was transferred to [facility] for Cardiology evaluation. It is not known if she underwent a coronary angiogram, we do not have that discharge summary and the patient thinks she did, but says not. Patient was sent home and started to complain of left arm pain and came to this ER 1 week ago and was diagnosed with a left arm deep venous thrombosis for which she has been started on Eliquis approximately 7 days ago. She was sent home from that ER visit. Today, while walking, patient developed dyspnea and was brought to the emergency room. She was found to be hypoxic with oxygen saturation of 82% on room air and also hypotensive with blood pressure 97/52. Chest x-ray showed pulmonary edema. Patient is being admitted to the ICU for management of her hypoxia, pulmonary edema and hypotension with prior diastolic heart failure and CAD history. PAST MEDICAL HISTORY: Cor pulmonale, diastolic LV heart failure, liver cirrhosis of unknown etiology, recent left arm deep venous thrombosis on new Eliquis, Afib, anemia (during her ER visits this month, she has had hemoglobins of 8-9, and a year ago hemoglobin was 11). ALLERGIES: NONE. MEDICATIONS 1. Lasix 40 mg daily. 2. Oxycodone p.r.n. 3. Amlodipine 5 mg daily. 4. Spironolactone 50 mg bid 5. Baby aspirin daily. 6. Eliquis 5 mg b.i.d. for 1 week, now on 2.5 bid. 7. Cephalexin 500 qid. FAMILY HISTORY: No inherited diseases. SOCIAL HISTORY: Patient is a nonsmoker, drinks no alcohol. She lives with her . REVIEW OF SYSTEMS: She denies any chest pain, palpitations, syncope, or leg edema. She has had a poor appetite ever since her CABG 10 years ago, eats about one quarter of what her eats. She describes eating toast and coffee for breakfast, tuna fish for lunch and a quarter of a frozen meal for dinner. A comprehensive review of system was performed and the pertinent positives are listed, the rest are negative. PHYSICAL EXAMINATION GENERAL: female who is in mild respiratory distress at rest while talking and moderate to severe respiratory distress with just taking a few steps on a flat surface in the ER. VITAL SIGNS: Blood pressure now 98/49, pulse of 68 in sinus rhythm, respiratory rate 18. HEENT: Scleral ictris, moist oral mucosa. NECK: Positive JVD at a 30-degree upright angle. CHEST: Diminished breath sounds at both bases, no rales or wheezes. HEART: Heart sounds normal without any murmurs. ABDOMEN: Mildly distended, soft, nontender. EXTREMITIES: 4+ edema of the legs to the upper thighs, 4+ edema of the left arm. NEUROLOGIC: Grossly intact. LABORATORY DATA: White blood count 9.4, hemoglobin 7.7, RDW 16.8, platelet count 234. INR not done. Sodium 122, potassium 4.4, BUN 63, creatinine 2.8. Her last BUN and creatinine were 53 and 2.4 and when she was being transferred to [facility] her BUN was 31, creatinine 1.8 three weeks ago. Bilirubin 9.4, AST 203, ALT 67, alkaline phosphatase 296. Albumin 1.7. Troponin high sensitivity is only 13.6. BNP 1183. The one previous to that was 1005 and before that 849 this month. Her lipase level was normal at 39. CHEST X-RAY: Cardiomegaly and moderate pulmonary edema. EKG: Atrial fibrillation, right bundle branch block, poor R-wave progression, lateral ST depressions with T-wave inversions. Compared to her last EKG 3 weeks ago, it is similar, but no PVC now. IMPRESSION/DIAGNOSIS 1. Acute respiratory failure with hypoxia. 2. Pulmonary edema. 3. Acute on chronic heart failure. 4. Hypotension. 5. [id number]-uefgrhp kidney disease. 6. Symptomatic anemia. 7. Left arm deep venous thrombosis. 8. Cor pulmonale. 9. Liver cirrhosis. 10. History of coronary artery disease. 11. Chronic atrial fibrillation. 12. Hypoalbuminemia. 13. Anorexia. PLAN: Admit patient to the ICU on telemetry. Hold blood pressure medicine Amlodipine. Continue with her Spironolactone, at a lower dose. Continue Eliquis. Cycle troponins. Begin IV b.i.d. loop diuretics, follow I's and O's, daily weights, electrolytes and magnesium. Begin blood transfusion slowly and with a dose of IV Lasix to follow that. Follow her CBC daily and her CMP daily. Obtain records from the workup that was done at [facility], especially if there was a coronary angiogram, just 2 weeks ago. Continue with Cefalexin for possible cellulitis of left arm. DEEP VENOUS THROMBOSIS PROPHYLAXIS: Pharmacotherapy. CODE STATUS: FULL CODE. ATTESTATION: Patient is expected to be discharged or transferred to another facility within 96 hours: Yes. cc: Last Smith MD TD: 07/30/2020 18:38 MTDD
[2020-07-30] MEDS: APIXABAN 2.5 MG TABLET PO SCH (20:34)
[2020-07-30] MEDS: cephALEXin 250 MG CAPSULE PO SCH (20:34)
[2020-07-30] MEDS: SODIUM CHLORIDE FLUSH 0.9% 10 ML SYRINGE IVP SCH ×2 (20:36→23:22)
[2020-07-30] MEDS ORDERED: SPIRONOLACTONE 25 MG TABLET PO SCH (21:00)
[2020-07-31] MEDS: cephALEXin 250 MG CAPSULE PO SCH ×3 (04:15→21:30)
[2020-07-31 05:42] LABS: BASOPHILS % (AUTO) 0.2 %; EOSINOPHILS # (AUTO) 0.2 10^3/uL (0.0-0.7); EOSINOPHILS % (AUTO) 1.9 %; HGB - HEMOGLOBIN 8.3 g/dL (12.0-16.0); LYMPHOCYTES # (AUTO) 1.8 10^3/uL (1.5-3.5); LYMPHOCYTES % (AUTO) 21.1 %; MEAN CORPUSCULAR HGB CONC 34.2 g/dL (32.0-36.0); MEAN CORPUSCULAR VOLUME 90.7 fL (81.0-99.0); MEAN PLATELET VOLUME 10.5 fL (7.9-10.8); MONOCYTES # (AUTO) 0.8 10^3/uL (0.0-1.0); MONOCYTES % (AUTO) 9.4 %; NEUTROPHILS # (AUTO) 5.5 10^3/uL (1.5-6.6); NEUTROPHILS % (AUTO) 65.5 %; PLT - PLATELET COUNT 217 10^3/uL (130-450); RED BLOOD COUNT 2.68 10^6/uL (4.20-5.40); RED CELL DISTRIBUTION WIDTH 16.3 % (12.0-15.0); WHITE BLOOD COUNT 8.5 x10^3/uL (4.8-10.8)
[2020-07-31 06:00] LABS: ALBUMIN 1.7 g/dL (3.2-5.5); ALBUMIN/GLOBULIN RATIO 0.2 (1.0-2.2); BILIRUBIN,TOTAL 10.3 mg/dL (0.2-1.0); CALCIUM 8.1 mg/dL (8.5-10.3); CREATININE 2.6 mg/dL (0.4-1.0); PHOSPHORUS 4.1 mg/dL (2.5-4.6); TOTAL PROTEIN 8.6 g/dL (6.7-8.2)
[2020-07-31 06:19] LABS: FOLATE 11.75 ng/mL (5.90 - >24.8)
[2020-07-31] MEDS: FUROSEMIDE 40 MG/4 ML VIAL IVP SCH ×3 (07:12→16:10)
[2020-07-31] MEDS: ASPIRIN CHEW 81 MG TABLET PO SCH (09:14)
[2020-07-31] MEDS: APIXABAN 2.5 MG TABLET PO SCH ×2 (09:14→21:30)
[2020-07-31] MEDS: SODIUM CHLORIDE FLUSH 0.9% 10 ML SYRINGE IVP SCH ×3 (09:15→21:30)
--- NOTE | 2020-07-31 11:13 | PHARMACY PROGRESS NOTE ---
- Best Possible Medication History Admit Date and Time: 07/30/20 1710 Processed by: Pharmacy Medication History completed: Yes Patient Interview: Completed Secondary Source(s): Caregiver (PATIENT INTERVIEWED BY PHARMACY. PATIENT'S ABLE TO CONFIRM HOME MEDICATIONS ), Physician records, Pharmacy records, Insurance records As the person ultimately responsible for medication therapy, providers are able to order a medication from an existing home medication list in [facility] via the "Reconcile Routine" prior to Confirmation of that medication by network support technician. Such practice is discouraged except when the physician, in their clinical judg ment, deems that a medical need exists for a medication without regard to previous use.
[2020-07-31] MEDS: SPIRONOLACTONE 25 MG TABLET PO SCH ×2 (12:14→17:47)
--- NOTE | 2020-07-31 13:24 | PROVIDER PROGRESS NOTE ---
Assessment/Plan - Problem List (1) Acute respiratory failure with hypoxia Assessment/Plan: Continues to need supplemental oxygen. The etiology appears to be pulmonary edema. Continue with supplemental oxygen and treat the underlying volume overload. Remain in the ICU because of hypotension. (2) Acute kidney injury superimposed on CKD Assessment/Plan: Her usual creatinine runs 1.2-1.8, which was that while at [facility]. Here she is much higher; BUN/creat was 63/2.8 yesterday and is 68/2.6 today. She may have cardiorenal syndrome or Hepatorenal syndrome, or ATN related to hypotension and hypoperfusion. Continue with careful loop diuretic treatment. Follow I's and O's and urine output especially. Follow BMP daily. If there is worsening of her creatinine despite this management, she will need transfer for higher level of care to a place with Nephrology specialists. (3) Deep vein thrombosis (DVT) of left upper extremity Assessment/Plan: Found during the hospitalization at [facility], she also came here for outpatient ER visit with this. She finished 7 days of the higher dose of 10 mg twice daily of Eliquis and is now supposed to be on 5 mg twice daily however because of her creatinine I have changed it to 2.5 twice daily. She needs work-up for pulmonary embolism as a cause of the current shortness of breath. At [facility] she had that done with both V/Q and confirmed with CTA and it was negative. Do not have nuclear medicine to get the scan VQ scan today or tomorrow (today Sunday). Her creatinine is too elevated to undergo CT imaging with dye. Continue with the anticoagulation using Eliquis. If there is evidence of a GI bleed, she will need transfer to hospital with higher level of care for a filter placement and management of a GI bleed. (4) Right calf pain Assessment/Plan: Will order duplex Doppler of her leg to evaluate for DVT. If it is present, this suggest that she is in Eliquis failure. (5) Symptomatic anemia Assessment/Plan: Records were received from [facility]; she was hospitalized there from 07/15 to 07/24 (9 days). She had nearly the same presentation then with congestive heart failure, Hyponatremia, abnormal LFTs, severe anemia, and needed transfusion of blood. Here she received blood transfusion yesterday and hemoglobin went from 7.7 up to 8.3 today. Because she is on baby ASA for CAD and on Eliquis and has early esophageal varices (found on work-up done at [facility]), will follow her every bowel movement with guaiac test and stop the Eliquis if she is heme pos. B12 and folate levels were done here and are normal, her iron stores are low. We will start oral iron replacement. Follow H/H daily. If there is evidence of a GI bleed, she will need transfer to hospital with higher level of care for a filter placement and management of a GI bleed. (6) Hypotension Assessment/Plan: She continues to have blood pressures around 90. This is despite having a history of hypertension and being on Amlodipine, this was confirmed from the discharge summary from [facility], where BPs were 130's Continue to remain off A Continue to use diuretics to treat her volume overload. She may need Midodrine if there is symptomatic hypotension or orthostasis. This patient is in critical condition given her new hypotension, despite total body volume overload. (7) Acute on chronic diastolic heart failure Assessment/Plan: Her discharge summary was obtained from [facility] where she was hospitalized from 07/15 to 07/24/2020. An Echo was done there that showed normal LV function with EF of 65% with diastolic heart failure. The records from [facility] from 1 week ago show that she also received salt tablets while being an inpatient, given for hyponatremia there, which may have precipitated this current episode of volume overload. Continue with IV twice daily Lasix and spironolactone. Follow I's and O's and daily weights, daily electrolytes. (8) Chronic cor pulmonale Assessment/Plan: As per history, the Echo done at [facility] showed right heart failure and mild pulm HTN, PAP 40 mmHg. She may be very sensitive to diuretics therefore, if we over diurese her, her LV preload will be low and add to decreased cardiac output and hypotension. (9) Persistent atrial fibrillation Assessment/Plan: Lavonne mccartney was first found when she presented to the ER here on 07/15/2020, it persisted while she will [facility] and it continues now. The rate is controlled. Her records indicate she gets bradycardic to beta-blockers which explains why she is on no heart rate control meds. The Eliquis is both for treating DVT and for stroke prophylaxis and A. fib. (10) Hyponatremia Assessment/Plan: She is hypervolemic hyponatremia, probably caused by water retention from heart failure and from cirrhosis. The records from [facility] from 1 week ago show that she also received salt tablets while being an inpatient, given for hyponatremia there, which may have precipitated this current episode of volume overload. Fluid restrict and low-salt diet ordered Continue with IV Lasix, I's and O's, daily weights, BMP daily. Continue with her Spironolactone for her liver. Follow BMP daily. (11) Liver cirrhosis Assessment/Plan: Liver cirrhosis was noted on abdominal imaging done at [facility]. Etiology is unknown. The hospitalist providers note stated that she may have passive liver congestion from right heart failure as well. Her bilirubin was 5 during the hospital stay at [facility], here she is reaching bilirubin 8-9. We would like to follow her INR to monitor liver synthesis ability. She is on Eliquis therefore INR will not be reliable. Continue loop diuretic and spironolactone. Avoid hepatotoxins. Will order ammonia level to follow daily. Will eval abdomen with MRI. (12) Esophageal varices determined by endoscopy Assessment/Plan: She had EGD and colonoscopy done at [facility] a week ago. Early esophageal varices were seen. The Property Damage Claims Adjustor okayed using the Eliquis, for DVT treatment. Because she has repeat severe anemia, will check each of her bowel movements for guaiac because of Eliquis use in a patient with esophageal varices. (13) History of hypertension Assessment/Plan: She had a history of hypertension and was on Amlodipine, this was confirmed from the discharge summary from [facility], where BPs were 130's (14) History of coronary artery disease Assessment/Plan: She did not undergo a coronary angiogram, as determined from the discharge summary obtained from [facility]. They repeated the troponin there which was completely normal. - Current Meds Current Meds: Current Medications Generic Name Dose Route Start Last Admin Trade Name Freq PRN Reason Stop Dose Admin Apixaban 2.5 mg 07/30/20 21:00 07/31/20 09:14 Eliquis PO 2.5 mg BID AMBROSE Administration Aspirin 81 mg 07/31/20 09:00 07/31/20 09:14 [facility] Aspirin PO 81 mg DAILY AMBROSE Administration Cephalexin 500 mg 07/31/20 13:00 07/31/20 12:14 Keflex PO 08/03/20 12:59 500 mg TID AMBROSE Administration Furosemide 20 mg 07/30/20 17:22 07/30/20 23:22 Lasix Inj 20mg Vial IVP 07/31/20 17:21 20 mg ONCE PRN Administration Between units Furosemide 40 mg 07/31/20 06:00 07/31/20 09:14 Lasix Inj 40 Mg Vial IVP 40 mg BIDDIURETIC AMBROSE Administration Sodium Chloride 10 ml 07/31/20 01:00 07/31/20 09:15 Normal Saline Flush 0.9% IVP 10 ml 0100,0900,1700 AMBROSE Administration Spironolactone 25 mg 07/31/20 12:00 07/31/20 12:14 Aldactone PO 25 mg 1200,1800 AMBROSE Administration - Lab Result Fish Bone Diagrams: 07/31/20 04:45 07/31/20 04:45 - Additional Planning My Orders: My Active Orders 07/30/20 Dinner Low Sodium Diet [DIET] 07/30/20 17:17 Activity Orders [RC] Q2HR Daily Weight [RC] 0600 IO [RC] Q1HR Initiate Bowel Care Protocol [RC] QSHIFT Initiate ICU Electrolyte Prot. [RC] .protocol Initiate Personal Care Protoco [RC] .protocol Vital Signs [RC] Q2HR Albuterol 2.5 mg INH Q4HR PRN Ondansetron Inj [Zofran Inj] 4 mg IVP Q6HR PRN Sodium Chloride Flush 0.9% [Normal Saline Flush 0.9%] 10 ml IVP PRN PRN Code Status [OTHERS] Routine Condition of Patient [OTHERS] Routine DVT Prophylaxis [OTHERS] Routine 07/30/20 17:19 Oral Care - Nursing [RC] Routine Oxygen Therapy [RC] Routine Telemetry- [RC] Q4HR 07/30/20 17:22 Initiate Line Care Protocol [RC] QSHIFT FUROSEMIDE INJ 20mg VIAL [LASIX INJ 20mg VIAL] 20 mg IVP ONCE PRN 07/30/20 21:00 Apixaban [Eliquis] 2.5 mg PO BID 07/31/20 01:00 Sodium Chloride Flush 0.9% [Normal Saline Flush 0.9%] 10 ml IVP 0100,0900,1700 07/31/20 06:00 FUROSEMIDE INJ 40mg VIAL [LASIX INJ 40 mg VIAL] 40 mg IVP BIDDIURETIC 07/31/20 09:00 Aspirin Chewable [[facility] Aspirin] 81 mg PO DAILY 07/31/20 12:00 Spironolactone [Aldactone] 25 mg PO 1200,1800 07/31/20 13:00 cephALEXin [Keflex] 500 mg PO TID 08/01/20 05:00 BNP - B-NATRIURETIC PEPTIDE [IAI] DAILYLAB CBC - COMP BLD CT W/AUTO DIFF [HEME] DAILYLAB COMPREHENSIVE METABOLIC PANEL [CHEM] DAILYLAB MAGNESIUM [CHEM] DAILYLAB 08/02/20 05:00 CBC - COMP BLD CT W/AUTO DIFF [HEME] DAILYLAB COMPREHENSIVE METABOLIC PANEL [CHEM] DAILYLAB MAGNESIUM [CHEM] DAILYLAB 08/03/20 05:00 CBC - COMP BLD CT W/AUTO DIFF [HEME] DAILYLAB COMPREHENSIVE METABOLIC PANEL [CHEM] DAILYLAB Subjective - Subjective Patient Reports: Feeling Better, Resting Comfortably Nursing Reports: Other (She complained on and off all morning of right calf pain) Objective Vital Signs: Vital Signs - 24 hr 07/30/20 07/30/20 07/30/20 14:30 15:00 16:53 Temperature 36.6 C Heart Rate 78 68 Heart Rate [ Monitoring electrodes] Respiratory 18 18 Rate Blood Pressure 97/52 L 98/49 L Blood Pressure [Left radial artery] Blood Pressure [Right Brachial artery] O2 Saturation 95 82 L 92 07/30/20 07/30/20 07/30/20 18:20 18:57 19:00 Temperature 97.9 C H Heart Rate Heart Rate [ 74 76 79 Monitoring electrodes] Respiratory 20 21 20 Rate Blood Pressure Blood Pressure [Left radial artery] Blood Pressure 101/52 L 97/57 L 96/49 L [Right Brachial artery] O2 Saturation 95 07/30/20 07/30/20 07/30/20 20:18 20:28 20:50 Temperature 36.2 C L 37.2 C 37.2 C Heart Rate 71 72 Heart Rate [ 70 Monitoring electrodes] Respiratory 21 20 23 Rate Blood Pressure 95/56 L 89/70 L Blood Pressure [Left radial artery] Blood Pressure 95/56 L [Right Brachial artery] O2 Saturation 10/23/20 10/23/20 10/23/20 21:00 22:01 23:00 Temperature 36.1 C L Heart Rate Heart Rate [ 71 70 69 Monitoring electrodes] Respiratory 23 24 21 Rate Blood Pressure Blood Pressure 83/55 L 92/56 L [Left radial artery] Blood Pressure 94/58 L [Right Brachial artery] O2 Saturation 95 94 07/30/20 07/31/20 07/31/20 23:20 00:00 01:00 Temperature 36.1 C L Heart Rate 78 Heart Rate [ 69 70 Monitoring electrodes] Respiratory 23 18 16 Rate Blood Pressure 97/57 L Blood Pressure 99/58 L [Left radial artery] Blood Pressure 100/66 [Right Brachial artery] O2 Saturation 94 93 07/31/20 07/31/20 07/31/20 03:00 04:00 05:00 Temperature 36.4 C L Heart Rate Heart Rate [ 65 66 64 Monitoring electrodes] Respiratory 17 17 17 Rate Blood Pressure Blood Pressure 98/59 L [Left radial artery] Blood Pressure 93/58 L 95/47 L [Right Brachial artery] O2 Saturation 93 94 95 07/31/20 07/31/20 07/31/20 06:00 07:05 08:00 Temperature Heart Rate Heart Rate [ 67 61 67 Monitoring electrodes] Respiratory 18 14 18 Rate Blood Pressure Blood Pressure [Left radial artery] Blood Pressure 90/52 L 89/56 L 95/50 L [Right Brachial artery] O2 Saturation 95 94 97 07/31/20 07/31/20 07/31/20 09:00 11:00 12:14 Temperature 36.4 C L 36.4 C L Heart Rate Heart Rate [ 70 76 78 Monitoring electrodes] Respiratory 20 17 14 Rate Blood Pressure Blood Pressure [Left radial artery] Blood Pressure 96/58 L 100/56 L 103/60 [Right Brachial artery] O2 Saturation 97 92 94 07/31/20 12:23 Temperature Heart Rate Heart Rate [ Monitoring electrodes] Respiratory 20 Rate Blood Pressure Blood Pressure [Left radial artery] Blood Pressure [Right Brachial artery] O2 Saturation 94 Oxygen O2 Source Nasal cannula I&O (Last 24 Hrs): Intake and Output Totals x24h 07/29/20 07/30/20 07/31/20 23:59 23:59 23:59 Intake Total 301 730 Output Total 240 600 Balance 61 130 General: Alert, Oriented x3 HEENT: Mucous membr. moist/pink, Other (Icteric) Neck: Supple, No JVD Neuro: Alert, Non Focal Cardiovascular: No murmurs, Other (Irregularly irregular) Respiratory: No respiratory distress (Wearing O2 nasal cannula), Other (Diminished breath sounds at bases, no wheezes or rales are heard) Abdomen: Soft, Other (Mildly distended, nontender) Extremities: Other (Plus edema to above the knees, less ankle swelling than yesterday, No calf tenderness to touch on the right) - Results Results: Laboratory Results WBC 8.5 x10^3/uL (4.8-10.8) 07/31/20 04:45 RBC 2.68 10^6/uL (4.20-5.40) L 07/31/20 04:45 Hgb 8.3 g/dL (12.0-16.0) L 07/31/20 04:45 Hct 24.3 % (37.0-47.0) L 07/31/20 04:45 MCV 90.7 fL (81.0-99.0) 07/31/20 04:45 MCH 31.0 pg (27.0-31.0) 07/31/20 04:45 MCHC 34.2 g/dL (32.0-36.0) 07/31/20 04:45 RDW 16.3 % (12.0-15.0) H 07/31/20 04:45 Plt Count 217 10^3/uL (130-450) 07/31/20 04:45 MPV 10.5 fL (7.9-10.8) 07/31/20 04:45 Neut # (Auto) 5.5 10^3/uL (1.5-6.6) 07/31/20 04:45 Lymph # (Auto) 1.8 10^3/uL (1.5-3.5) 07/31/20 04:45 Morton # (Auto) 0.8 10^3/uL (0.0-1.0) 07/31/20 04:45 Eos # (Auto) 0.2 10^3/uL (0.0-0.7) 07/31/20 04:45 Baso # (Auto) 0.0 10^3/uL (0.0-0.1) 07/31/20 04:45 Absolute Nucleated RBC 0.05 x10^3/uL 07/31/20 04:45 Nucleated RBC % 0.6 /100WBC 07/31/20 04:45 Sodium 127 mmol/L (135-145) L 07/31/20 04:45 Potassium 4.0 mmol/L (3.5-5.0) 07/31/20 04:45 Chloride 99 mmol/L (101-111) L 07/31/20 04:45 Carbon Dioxide 17 mmol/L (21-32) L 07/31/20 04:45 Anion Gap 11.0 (6-13) 07/31/20 04:45 BUN 68 mg/dL (6-20) H 07/31/20 04:45 Creatinine 2.6 mg/dL (0.4-1.0) H 07/31/20 04:45 Estimated GFR (MDRD) 18 (>89) L 07/31/20 04:45 Glucose 104 mg/dL (70-100) H 07/31/20 04:45 Calcium 8.1 mg/dL (8.5-10.3) L 07/31/20 04:45 Phosphorus 4.1 mg/dL (2.5-4.6) 07/31/20 04:45 Magnesium 2.3 mg/dL (1.7-2.8) 07/31/20 04:45 Iron 27 ug/dL (28-170) L 07/30/20 15:30 TIBC 328 ug/dL (250-450) 07/30/20 15:30 % Saturation 8 % (20-50) L 07/30/20 15:30 Transferrin 234 mg/dL (192-382) 07/30/20 15:30 Total Bilirubin 10.3 mg/dL (0.2-1.0) H 07/31/20 04:45 AST 173 IU/L (10-42) H 07/31/20 04:45 ALT 62 IU/L (10-60) H 07/31/20 04:45 Alkaline Phosphatase 282 IU/L (42-121) H 07/31/20 04:45 Troponin I High Sens 15.4 ng/L (2.3-14.8) H* 07/31/20 04:45 B-Natriuretic Peptide 1090 pg/mL (5-100) H 07/31/20 04:45 Total Protein 8.6 g/dL (6.7-8.2) H 07/31/20 04:45 Albumin 1.7 g/dL (3.2-5.5) L 07/31/20 04:45 Globulin 6.9 g/dL (2.1-4.2) H 07/31/20 04:45 Albumin/Globulin Ratio 0.2 (1.0-2.2) L 07/31/20 04:45 Lipase 39 U/L (22-51) 07/30/20 15:30 Vitamin B12 1180 pg/mL (180-914) H 07/31/20 04:45 Folate 11.75 ng/mL (5.90 - >24.8) 07/31/20 04:45 Nasal Screen MRSA (PCR) NEGATIVE (NEGATIVE) 07/30/20 18:20 Blood Type O POSITIVE 07/30/20 17:40 Blood Type Recheck O POSITIVE 07/30/20 15:30 Antibody Screen NEGATIVE 07/30/20 17:40 Crossmatch IS Only See Detail 07/30/20 17:40
[2020-07-31] MEDS: FERROUS GLUCONATE 324 MG TABLET PO SCH (17:47)
--- NOTE | 2020-07-31 22:30 | Ultrasound Report ---
PROCEDURE: Duplex Ext Veins Right INDICATIONS: Calf pain, Eval for DVT TECHNIQUE: Real-time imaging, as well as color and pulse Doppler interrogation, were performed of the lower extr emity deep veins from the inguinal ligament to the popliteal fossa. COMPARISON: None. FINDINGS: The deep veins are normally compressible, and free of intraluminal thrombus. Color and pu lse Doppler demonstrate normal phasic intraluminal flow. Augmentation could not be performed due to p atient's pain and agitation. IMPRESSION: No deep vein thrombosis of the right lower extremity. Reviewed by: Beata Licona MD on 07/31/2020 10:29 PM PDT Approved by: Beata Licona MD on 07/31/2020 10:29 PM PDT Station ID: [id number]
[2020-08-01 05:22] LABS: BASOPHILS % (AUTO) 0.1 %; EOSINOPHILS # (AUTO) 0.2 10^3/uL (0.0-0.7); EOSINOPHILS % (AUTO) 2.7 %; HGB - HEMOGLOBIN 7.6 g/dL (12.0-16.0); LYMPHOCYTES # (AUTO) 1.4 10^3/uL (1.5-3.5); LYMPHOCYTES % (AUTO) 16.6 %; MEAN CORPUSCULAR HEMOGLOBIN 30.2 pg (27.0-31.0); MEAN CORPUSCULAR HGB CONC 32.2 g/dL (32.0-36.0); MEAN CORPUSCULAR VOLUME 93.7 fL (81.0-99.0); MEAN PLATELET VOLUME 10.2 fL (7.9-10.8); MONOCYTES # (AUTO) 0.5 10^3/uL (0.0-1.0); MONOCYTES % (AUTO) 5.5 %; NEUTROPHILS % (AUTO) 73.8 %; PLT - PLATELET COUNT 193 10^3/uL (130-450); RED BLOOD COUNT 2.52 10^6/uL (4.20-5.40); WHITE BLOOD COUNT 8.2 x10^3/uL (4.8-10.8)
[2020-08-01 05:41] LABS: ALBUMIN 1.6 g/dL (3.2-5.5); ALBUMIN/GLOBULIN RATIO 0.3 (1.0-2.2); BILIRUBIN,TOTAL 9.4 mg/dL (0.2-1.0); CALCIUM 7.8 mg/dL (8.5-10.3); CREATININE 2.4 mg/dL (0.4-1.0); MAGNESIUM 2.1 mg/dL (1.7-2.8); TOTAL PROTEIN 7.6 g/dL (6.7-8.2)
[2020-08-01] MEDS: cephALEXin 250 MG CAPSULE PO SCH ×3 (06:32→21:56)
[2020-08-01] MEDS: FUROSEMIDE 40 MG/4 ML VIAL IVP SCH ×2 (06:32→14:40)
[2020-08-01] MEDS: SODIUM CHLORIDE FLUSH 0.9% 10 ML SYRINGE IVP PRN (06:33)
[2020-08-01] MEDS ORDERED: FUROSEMIDE 20 MG/2 ML VIAL IVP PRN (07:53)
[2020-08-01] MEDS: APIXABAN 2.5 MG TABLET PO SCH (10:31)
[2020-08-01] MEDS: ASPIRIN CHEW 81 MG TABLET PO SCH (10:32)
[2020-08-01] MEDS: SODIUM CHLORIDE FLUSH 0.9% 10 ML SYRINGE IVP SCH ×3 (10:39→19:24)
[2020-08-01] MEDS: FERROUS GLUCONATE 324 MG TABLET PO SCH (10:45)
[2020-08-01] MEDS: SPIRONOLACTONE 25 MG TABLET PO SCH ×2 (13:13→18:03)
--- NOTE | 2020-08-01 17:02 | PROVIDER PROGRESS NOTE ---
Assessment/Plan - Problem List (1) Anemia due to GI blood loss Assessment/Plan: She has had 2 guaiacs of stools that are positive. Her hemoglobin has dropped from yesterday again to below 8. Blood transfusion will be ordered for today again. Follow H/H every 12 hours. I had a discussion about potential management for this diagnosis, since she just underwent EGD and colonoscopy at [facility] 2 weeks ago. The patient and at bedside both want management aggressively. I called Samantha De Jesus Hand Bobbin Cleaner to have her accepted for higher level of care. That Hand Bobbin Cleaner advised that I speak again to the patient regarding futility but stated that if the patient continues to want maximal medical management, Hand Bobbin Cleaner would accept this patient in transfer to their ICU. Will start empiric Protonix IV twice daily. (2) Esophageal varices determined by endoscopy Assessment/Plan: As per endoscopy report from [facility] which was done approximately 2 weeks ago. They were not bleeding then. (3) Deep vein thrombosis (DVT) of left upper extremity Assessment/Plan: This was discussed with the Hand Bobbin Cleaner at [facility] as well. He remains on several more days of Keflex in case there was a cellulitis around this spot. Unfortunately, with presence of GI blood loss, will need to stop her aspirin and Eliquis, as advised by the Hand Bobbin Cleaner. This was also discussed with the patient, and at bedside. The DVT is not in a location where an IVC filter would be indicated to be placed. Will order SCDs for lower extremities for DVT prophylaxis now that her legs have diuresed and are not as painful from being taut, as at admission. (4) Liver cirrhosis Assessment/Plan: The had told me at admission that this has never been fully worked up. He stated the next plan was to do an MRI of the abdomen. This was ordered for yesterday but could not be completed on the MRI schedule. They are not here today (Sunday). I discussed this with the Hand Bobbin Cleaner as well, and Hand Bobbin Cleaner thought this was being worsened by the cor pulmonale and liver congestion. Continue with loop diuresis. Continue with Spironolactone. Follow LFTs daily. Follow ammonia level daily and start lactulose if needed. (5) Acute respiratory failure with hypoxia Assessment/Plan: She is approximately 2 L negative and fluid balance which has helped her leg edema but she continues to need supplemental oxygen for hypoxia, desaturates on room air. Continue with current plan. (6) Acute kidney injury superimposed on CKD Assessment/Plan: This has been slightly improved since admission with aggressive diuresis. Follow BUN/creatinine daily. Avoid nephrotoxins (7) Symptomatic anemia Assessment/Plan: As above in #1. She will get a blood transfusion today. (8) Hypotension Assessment/Plan: The patient remains hypotensive with blood pressures at 90 systolic. This was also discussed with the Hand Bobbin Cleaner who agrees with not starting any pressors, as long as patient is warm and dry and mentating. (9) Acute on chronic diastolic heart failure Assessment/Plan: Echo was done approximately 10 days ago with her admission at [facility], the report was reviewed. Continue with plan for diuresis. Her heart rate is under control. Follow I's and O's, daily weights (10) Chronic cor pulmonale Assessment/Plan: As per history. This is probably also adding to passive liver congestion. Continue with diuresis, Continue with supplemental oxygen to avoid hypoxic pulmonary vasoconstriction. (11) Persistent atrial fibrillation Assessment/Plan: This was new onset when she presented to the ER on July 15. The rate is under control. She was on Eliquis for DVT and for A. fib. The Eliquis will need to be stopped today due to GI blood loss anemia. (12) Hyponatremia Assessment/Plan: The serum sodium has minimally improved with her diuresis. Continue with loop diuretic and spironolactone. The salt tablet that [facility] has been discontinued. Follow BMP daily (13) History of hypertension Assessment/Plan: Patient had been on Amlodipine before this hospitalization, and it was on the discharge paperwork from [facility]. The Amlodipine has been stopped. She is hypotensive this entire admission, However she is warm and dry and mentating. (14) History of coronary artery disease Assessment/Plan: She had coronary bypass surgery remotely. She was on aspirin for this, it will be stopped as of today because of GI bleeding. This was discussed with the patient and at bedside today as well (15) Right calf pain Assessment/Plan: Pain has resolved. On exam her right calf is definitely larger than her left. Duplex Doppler was done last night and shows no DVT. - Current Meds Current Meds: Current Medications Generic Name Dose Route Start Last Admin Trade Name Freq PRN Reason Stop Dose Admin Cephalexin 500 mg 07/31/20 13:00 08/01/20 13:13 Keflex PO 08/03/20 12:59 500 mg TID AMBROSE Administration Ferrous Gluconate 324 mg 07/31/20 18:00 08/01/20 10:45 Fergon PO 324 mg DAILYWM AMBROSE Administration Furosemide 40 mg 07/31/20 06:00 08/01/20 14:40 Lasix Inj 40 Mg Vial IVP Not Given BIDDIURETIC AMBROSE Furosemide 20 mg 08/01/20 07:53 08/01/20 13:13 Lasix Inj 20mg Vial IVP 08/02/20 07:52 20 mg ONCE PRN Administration Between units Sodium Chloride 10 ml 07/31/20 01:00 08/01/20 10:39 Normal Saline Flush 0.9% IVP 10 ml 0100,0900,1700 AMBROSE Administration Sodium Chloride 10 ml 07/30/20 17:17 08/01/20 06:33 Normal Saline Flush 0.9% IVP 10 ml PRN PRN Administration NEEDED PER PROVIDER ORDERS Spironolactone 25 mg 07/31/20 12:00 08/01/20 13:13 Aldactone PO 25 mg 1200,1800 AMBROSE Administration - Lab Result Fish Bone Diagrams: 08/02/20 04:33 08/02/20 04:33 - Additional Planning My Orders: My Active Orders 07/31/20 17:51 Abdomen W/ [MRI] Routine 07/31/20 18:00 Ferrous Gluconate [Fergon] 324 mg PO DAILYWM 08/01/20 07:53 Transfuse RBCs Leukoreduced [RC] .ONCE FUROSEMIDE INJ 20mg VIAL [LASIX INJ 20mg VIAL] 20 mg IVP ONCE PRN 08/02/20 05:00 AMMONIA [CHEM] DAILYLAB CBC - COMP BLD CT W/AUTO DIFF [HEME] DAILYLAB COMPREHENSIVE METABOLIC PANEL [CHEM] DAILYLAB MAGNESIUM [CHEM] DAILYLAB 08/03/20 05:00 AMMONIA [CHEM] DAILYLAB CBC - COMP BLD CT W/AUTO DIFF [HEME] DAILYLAB COMPREHENSIVE METABOLIC PANEL [CHEM] DAILYLAB Subjective - Subjective Patient Reports: Feeling Better (Wearing O2 nasal cannula) Objective Vital Signs: Vital Signs - 24 hr 07/31/20 07/31/20 07/31/20 17:39 18:12 19:00 Temperature Heart Rate Heart Rate [ 64 65 Monitoring electrodes] Respiratory 20 20 Rate Blood Pressure Blood Pressure 102/59 L 105/51 L 94/61 [Right Brachial artery] O2 Saturation 92 93 07/31/20 07/31/20 07/31/20 20:00 21:00 23:00 Temperature 36.6 C Heart Rate Heart Rate [ 81 74 71 Monitoring electrodes] Respiratory 26 H 30 H 18 Rate Blood Pressure Blood Pressure 104/58 L 99/62 98/59 L [Right Brachial artery] O2 Saturation 94 92 92 08/01/20 08/01/20 08/01/20 00:00 01:00 02:00 Temperature Heart Rate Heart Rate [ 64 78 66 Monitoring electrodes] Respiratory 18 25 H 22 Rate Blood Pressure Blood Pressure 98/58 L 99/50 L 95/55 L [Right Brachial artery] O2 Saturation 92 88 L 92 08/01/20 08/01/20 08/01/20 03:00 04:00 05:00 Temperature 36.2 C L Heart Rate Heart Rate [ 66 75 65 Monitoring electrodes] Respiratory 18 23 30 H Rate Blood Pressure Blood Pressure 90/58 L 105/52 L 94/59 L [Right Brachial artery] O2 Saturation 95 95 97 08/01/20 08/01/20 08/01/20 06:00 07:00 08:00 Temperature Heart Rate Heart Rate [ 62 66 71 Monitoring electrodes] Respiratory 18 20 20 Rate Blood Pressure Blood Pressure 94/51 L 96/53 L 111/66 [Right Brachial artery] O2 Saturation 95 94 92 08/01/20 08/01/20 08/01/20 09:00 10:35 10:50 Temperature 36.4 C L 36.4 C L Heart Rate 73 71 Heart Rate [ 66 Monitoring electrodes] Respiratory 17 21 17 Rate Blood Pressure 103/58 L 112/67 Blood Pressure 100/55 L [Right Brachial artery] O2 Saturation 93 08/01/20 08/01/20 08/01/20 11:00 12:58 16:06 Temperature 36.4 C L 36.4 C L Heart Rate 66 Heart Rate [ 71 72 Monitoring electrodes] Respiratory 18 21 18 Rate Blood Pressure 104/64 Blood Pressure 116/67 119/50 L [Right Brachial artery] O2 Saturation 94 94 Oxygen O2 Source Nasal cannula I&O (Last 24 Hrs): Intake and Output Totals x24h 07/30/20 07/31/20 08/01/20 23:59 23:59 23:59 Intake Total 301 640 870 Output Total 240 1250 1650 Balance 61 610 -340 General: Alert, Oriented x3 HEENT: Mucous membr. moist/pink, Other Neck: Other (+ JVD) Neuro: Alert, Non Focal, Other (no nystagmus or asterixis) Cardiovascular: No murmurs, Other (Irregularly irregular) Respiratory: No respiratory distress (While on O2 nasal cannula), Breath sounds nml Abdomen: Soft, Other (Distended, non-tender) Extremities: Other (1+ edema to above the ankles, the right calf is greater than the left) - Results Results: Laboratory Results WBC 8.2 x10^3/uL (4.8-10.8) 08/01/20 04:45 RBC 2.52 10^6/uL (4.20-5.40) L 08/01/20 04:45 Hgb 9.5 g/dL (12.0-16.0) L 08/01/20 15:09 Hct 23.6 % (37.0-47.0) L 08/01/20 04:45 MCV 93.7 fL (81.0-99.0) 08/01/20 04:45 MCH 30.2 pg (27.0-31.0) 08/01/20 04:45 MCHC 32.2 g/dL (32.0-36.0) 08/01/20 04:45 RDW 17.0 % (12.0-15.0) H 08/01/20 04:45 Plt Count 193 10^3/uL (130-450) 08/01/20 04:45 MPV 10.2 fL (7.9-10.8) 08/01/20 04:45 Neut # (Auto) 6.0 10^3/uL (1.5-6.6) 08/01/20 04:45 Lymph # (Auto) 1.4 10^3/uL (1.5-3.5) L 08/01/20 04:45 [place] # (Auto) 0.5 10^3/uL (0.0-1.0) 08/01/20 04:45 Eos # (Auto) 0.2 10^3/uL (0.0-0.7) 08/01/20 04:45 Baso # (Auto) 0.0 10^3/uL (0.0-0.1) 08/01/20 04:45 Absolute Nucleated RBC 0.06 x10^3/uL 08/01/20 04:45 Nucleated RBC % 0.7 /100WBC 08/01/20 04:45 Sodium 128 mmol/L (135-145) L 08/01/20 04:45 Potassium 3.5 mmol/L (3.5-5.0) 08/01/20 04:45 Chloride 99 mmol/L (101-111) L 08/01/20 04:45 Carbon Dioxide 19 mmol/L (21-32) L 08/01/20 04:45 Anion Gap 10.0 (6-13) 08/01/20 04:45 BUN 66 mg/dL (6-20) H 08/01/20 04:45 Creatinine 2.4 mg/dL (0.4-1.0) H 08/01/20 04:45 Estimated GFR (MDRD) 19 (>89) L 08/01/20 04:45 Glucose 100 mg/dL (70-100) 08/01/20 04:45 Calcium 7.8 mg/dL (8.5-10.3) L 08/01/20 04:45 Phosphorus 4.1 mg/dL (2.5-4.6) 07/31/20 04:45 Magnesium 2.1 mg/dL (1.7-2.8) 08/01/20 04:45 Iron 27 ug/dL (28-170) L 07/30/20 15:30 TIBC 328 ug/dL (250-450) 07/30/20 15:30 % Saturation 8 % (20-50) L 07/30/20 15:30 Transferrin 234 mg/dL (192-382) 07/30/20 15:30 Total Bilirubin 9.4 mg/dL (0.2-1.0) H 08/01/20 04:45 AST 133 IU/L (10-42) H 08/01/20 04:45 ALT 53 IU/L (10-60) 08/01/20 04:45 Alkaline Phosphatase 255 IU/L (42-121) H 08/01/20 04:45 Ammonia 26.2 umol/L (7-35) 08/01/20 04:45 Troponin I High Sens 15.4 ng/L (2.3-14.8) H* 07/31/20 04:45 B-Natriuretic Peptide 1198 pg/mL (5-100) H 08/01/20 04:45 Total Protein 7.6 g/dL (6.7-8.2) 08/01/20 04:45 Albumin 1.6 g/dL (3.2-5.5) L 08/01/20 04:45 Globulin 6.0 g/dL (2.1-4.2) H 08/01/20 04:45 Albumin/Globulin Ratio 0.3 (1.0-2.2) L 08/01/20 04:45 Lipase 39 U/L (22-51) 07/30/20 15:30 Vitamin B12 1180 pg/mL (180-914) H 07/31/20 04:45 Folate 11.75 ng/mL (5.90 - >24.8) 07/31/20 04:45 Nasal Screen MRSA (PCR) NEGATIVE (NEGATIVE) 07/30/20 18:20 Blood Type O POSITIVE 07/30/20 23:58 Blood Type Recheck O POSITIVE 07/30/20 15:30 Antibody Screen NEGATIVE 07/30/20 23:58 Crossmatch IS Only See Detail 07/30/20 23:58
--- NOTE | 2020-08-01 17:39 | ADVANCE CARE PLANNING NOTE ---
Advance Care Planning - Planning Encounter Date: 08/01/20 Time: 15:15 Purpose: To discuss the status of each of her different diagnoses and determine her wishes regarding proceeding forward with aggressive treatment versus palliative care Parties in Attendance: I spoke to the patient who was in her bed, was at bedside, and the nurses LA Tolentino was at bedside. Decisional Capacity of the Patient: She has full decisional capacity, is oriented x3. - Diagnosis for Encounter (1) Anemia due to GI blood loss Summary: She has had 2 stool samples sent and are positive for heme. (2) Esophageal varices determined by endoscopy Summary: As per Hx. (3) Deep vein thrombosis (DVT) of left upper extremity Summary: L arm DVT persent, diagnosed about 2 weeks ago, still is symptomatic and swollen. (4) Liver cirrhosis Summary: This has never been worked up, according to the . He mentioned yesterday that the next work-up would be a liver MRI which was ordered yesterday however it was not done on a Sunday and MRI is not here in a Sunday. - Encounter Subjective/Patient's Story: This patient has a remote history of coronary disease She was diagnosed with "liver cirrhosis of unknown cause" approximately 9 months ago. She has a history of recent A. fib which appears to be persistent or chronic now, and anemia that required transfusion and hospitalization at [facility] 3 weeks ago, esophageal varices were found and friable gastric mucosa but no source of bleeding on EGD or colonoscopy was found. She needed blood transfusion while there. An Echo was done there that showed preserved LV function, diastolic dysfunction present, dilated right ventricle with cor pulmonale and mild to moderate pulmonary hypertension. She had successful diuresis done there. She was hyponatremic and discharged home with a salt tablet however. She presented now with a similar combination of problems: anemia, volume overload, abnormal LFTs and hyponatremia. New problems now are TUAN and hypotension and worse elevation of LFTs and bili. In the last 24 hours she has required a blood transfusion, is getting diuresis with good negative fluid balance and her shortness of breath has improved, but she is requiring supplemental oxygen still. She remains in the ICU because of systolic blood pressures of 90mmHg. Stools were checked for heme because of the recurrent anemia and guaic results are positive x2. I spoke to an Instrument Maker Apprentice at [facility] today and discussed all the above diagnoses, requesting that she be transferred for management and consultations with Hepatology, Nephrology, and Cardiology. The Instrument Maker Apprentice initially thought that management by these specialists would futile and the that patient should have palliative care with transition to Hospice. The Instrument Maker Apprentice advised that I talk to the patient and family regarding this option or whether she wants aggressive medical management. I reviewed all the above during this meeting with the patient and , with RN in the room. The patient told me at admission that she wants to be a full code, wants maximal medical management of all her diagnoses. She now sais she is not ready to give up and be seen by Palliative Care or started on Comfort measures only. The patient confirmed all the same wishes now. The agrees with her decision. Objective/Medical Story: As above. Plan: I will continue to medically manage her GI blood loss anemia, volume overload, liver failure, DVT and TUAN. I will reach out to the Intensive Care providers at [facility] for request to indeed transfer her since the Instrument Maker Apprentice said that if the patient insists on maximum medical management, she will be accepted by their team. Code Status: Attempt Resuscitation Time spent on advance care plannin min
[2020-08-02 04:40] LABS: BASOPHILS % (AUTO) 0.2 %; EOSINOPHILS # (AUTO) 0.3 10^3/uL (0.0-0.7); EOSINOPHILS % (AUTO) 2.9 %; HGB - HEMOGLOBIN 8.7 g/dL (12.0-16.0); LYMPHOCYTES # (AUTO) 1.3 10^3/uL (1.5-3.5); LYMPHOCYTES % (AUTO) 14.2 %; MEAN CORPUSCULAR HEMOGLOBIN 30.9 pg (27.0-31.0); MEAN CORPUSCULAR HGB CONC 33.5 g/dL (32.0-36.0); MEAN CORPUSCULAR VOLUME 92.2 fL (81.0-99.0); MEAN PLATELET VOLUME 9.8 fL (7.9-10.8); MONOCYTES # (AUTO) 0.4 10^3/uL (0.0-1.0); NEUTROPHILS # (AUTO) 6.8 10^3/uL (1.5-6.6); NEUTROPHILS % (AUTO) 76.5 %; PLT - PLATELET COUNT 172 10^3/uL (130-450); RED BLOOD COUNT 2.82 10^6/uL (4.20-5.40); RED CELL DISTRIBUTION WIDTH 16.6 % (12.0-15.0); WHITE BLOOD COUNT 8.8 x10^3/uL (4.8-10.8)
[2020-08-02 04:53] LABS: ALBUMIN 1.6 g/dL (3.2-5.5); ALBUMIN/GLOBULIN RATIO 0.3 (1.0-2.2); BILIRUBIN,TOTAL 10.2 mg/dL (0.2-1.0); CALCIUM 7.9 mg/dL (8.5-10.3)
[2020-08-02] MEDS: cephALEXin 250 MG CAPSULE PO SCH ×2 (06:32→14:26)
[2020-08-02] MEDS: SODIUM CHLORIDE FLUSH 0.9% 10 ML SYRINGE IVP PRN (06:33)
[2020-08-02] MEDS: FUROSEMIDE 40 MG/4 ML VIAL IVP SCH ×2 (06:33→14:27)
[2020-08-02] MEDS: SODIUM CHLORIDE FLUSH 0.9% 10 ML SYRINGE IVP SCH ×2 (08:26→17:35)
[2020-08-02] MEDS: FERROUS GLUCONATE 324 MG TABLET PO SCH (08:26)
[2020-08-02] MEDS: SPIRONOLACTONE 25 MG TABLET PO SCH ×2 (11:33→17:35)
--- NOTE | 2020-08-02 12:30 | Discharge Plan ---
Discharge Plan Problem Reviewed?: Yes Disposition: 02 Transfer Acute Care Hosp Condition: Poor Instruction Topics: Atorvastatin tablets, Cholesterol Numbers No Smoking: If you smoke, Please STOP! Call for help. Follow-up with: STEPHANY DAUGHERTY MD [Primary Care Provider] -
--- NOTE | 2020-08-02 12:32 | DISCHARGE SUMMARY ---
Discharge Summary Admit Date: 07/30/20 Discharge Date: 08/02/20 Discharging Provider: Dr Cynthia Iqbal Primary Care Provider: Dr Last Smith Code Status: Attempt Resuscitation Condition at Discharge: Poor Discharge Disposition: 02 Transfer Acute Care Hosp - [facility] History of Present Illness: This is an 80 y/o female of descent, who has a Hx of remote CAD, liver cirrhosis of unknown cause, Cor pulmonale, LV diastolic heart failure, HTN, and CKD who was sent to [facility] from our ER 3 weeks ago when she presented here with shortness of breath and chest pain and a midly elevated troponin. She had a troponin done there which was normal, and she had no stress test or coronary angio done. She did have an Echo which confirmed diastolic heart failure and cor pulmonale with mild pulmonary HTN. She was anemic and got a blood transfusion and underwent EGD and colonoscopy. These showed early esophageal varices and friable gastric and duodenal mucosa, but no signs of bleeding. She was diuresed, she was started on a salt tablet for hyponatremia and discharged home on this. She developed a left arm DVT for which she was on 7 days of high-dose Eliquis and about to start the lower dose. She presented today with several days of worsening shortness of breath, desaturation to 82% on room air, worsening leg edema to her thighs, and again found to be hyponatremic at 122, and anemic at 7.7 Hgb. She was also in acute on chronic kidney failure with BUN/creat 63/2.8, higher LFTs in the 200's, bili 9 (usually 5) and also she had new hypotension, with systolic BP 90. The left arm had swelling, and she was icteric. She was be admitted to the ICU due to the low BP, for diuresis and management of anemia and liver failure. I spoke to her about care plan and she wishes to be a Full Code. - HOSPITAL COURSE Hospital Course: (1) Anemia due to GI blood loss She received 1 U of blood and felt slightly better. Hgb cristi to 9. Eliquis was (initially) continued. She had guaic test of each stool and she had 2 stools that were positive. Her hemoglobin dropped again to below 8. Blood transfusion was again ordered. I had a discussion about potential management for this diagnosis, since she just underwent EGD and colonoscopy at [facility] 2 weeks previously. The patient and (at bedside) both wanted maximum medical management aggressively. I called Samantha De Jesus Supervisor Wound, who accepted this patient in transfer to their step-down unit, since BP was now running 100-110. Her Eliquis was stopped and she was started on empiric Protonix IV twice daily. (2) Esophageal varices determined by endoscopy As per endoscopy report from [facility] which was done approximately 2 weeks ago. They were not bleeding then. (3) Deep vein thrombosis (DVT) of left upper extremity Initially, her Eliquis was continued. The DVT was discussed with the Supervisor Wound at [facility] as well. She remained on several more days of Keflex, started before admission, in case there was a cellulitis at this spot. Unfortunately, with presence of GI blood loss, we needed to stop her aspirin and Eliquis, as advised by the Supervisor Wound. The DVT is not in a location where an IVC filter would be indicated to be placed. She was put on SCDs for leg DVT prophylaxis, since her legs had diuresed and were not as painful from being taut, as at admission. (4) Liver cirrhosis The had told me at admission that this diagnosis has never been fully worked up. He stated the next plan was to do an MRI of the abdomen. An MRI was ordered but could not be completed on the MRI schedule. She was kept on Lasix iv and oral Spironolactone and we followed LFTs daily which minimally improved (AST 203>> 130, AST 67>> 50, ALP 296>> 263, bili 9.4>> 10.2. Her serum ammonia level fluctuated (39>> 26>> 40), but we did not start Lactulose, as there was no confusion or asterixis. (5) Acute respiratory failure with hypoxia She was put on supplemental O2. Diureses produced approximately 2.5 L negative fluid balance which has helped her leg edema but she continues to need supplemental oxygen for hypoxia, still desaturatds on room air. (6) Acute kidney injury superimposed on CKD BUN/creat of 63/2.8 slightly improved after admission with aggressive diuresis, to 59/2.0. Her baseline CKD has a creat of 1.6. (7) Symptomatic anemia As above in #1. (8) Hypotension The patient had been on daily Amlodipine, which was stopped. She remained hypotensive with blood pressures of 90 systolic for several days. No pressors were started since she was warm and dry and mentating normally. This was also discussed with the Supervisor Wound, who agreed with not starting any pressors. (9) Acute on chronic diastolic heart failure Echo had been done at [facility], approximately 10 days before this admission. The report was received and reviewed. (10) Chronic cor pulmonale As per history. This is probably also adding to passive liver congestion. (11) Persistent atrial fibrillation This was of new onset when she had presented to the ER on July 15 with the first SOB and CP. The heart rate was under control without any heart rate slowing meds, suggesting intrinsic conduction system disease. She had been on Eliquis for DVT and for A. fib. The Eliquis was stopped due to GI blood loss anemia. (12) Hyponatremia Sodium was 122. She had hypervolemic hyponatremia, and the daily salt tablet was stopped. IV Lasix was started. The serum sodium improved daily and was 130 at the time of transfer. (13) History of hypertension Patient had been on Amlodipine before this hospitalization, and it was on the discharge paperwork from [facility]. Here, the Amlodipine was stopped due to BPs of 90-112 at best. (14) History of coronary artery disease She had coronary bypass surgery remotely. She was on aspirin for this, but it will be stopped because of GI bleeding. (15) Right calf pain On exam her right calf was definitely larger than her left. Duplex Doppler was done that showed no right leg DVT. - ALLERGIES Allergies/Adverse Reactions: Allergies Allergy/AdvReac Type Severity Reaction Status Date / Time No Known Drug Allergies Allergy Verified 07/30/20 14:39 - MEDICATIONS Home Medications: Ambulatory Orders Medication Instructions Recorded Confirmed Fluocinonide/Emollient Base 15 gm TP BID 06/04/13 07/31/20 [Fluocinonide-Emol 0.05% Cream] Cephalexin [Keflex] 500 mg PO Q6HR 12/04/15 07/31/20 Oxycodone HCl 5 mg PO Q8H PRN #14 tablet 07/26/20 07/31/20 Acetaminophen [Tylenol Extra 500 mg PO PRN PRN 07/31/20 07/31/20 Strength] Amlodipine Besylate 10 mg PO DAILY 07/31/20 07/31/20 Apixaban [Eliquis] 5 mg PO BID 07/31/20 07/31/20 Furosemide [Lasix] 60 mg PO DAILY 07/31/20 07/31/20 Pantoprazole Sodium 40 mg PO DAILY 07/31/20 07/31/20 Sodium Bicarbonate 650 mg PO TID 07/31/20 07/31/20 Spironolactone 25 mg PO DAILY 07/31/20 07/31/20 - PHYSICAL EXAM AT DISCHARGE General Appearance: positive: No acute distress, Alert Eyes Bilateral: positive: Other (Icteric sclerae, moist mucosa) ENT: positive: ENT inspection nml, No signs of dehydration Neck: positive: Nml inspection (supple, (+) JVD) Respiratory: positive: No respiratory distress (Wearing O2 n.c.) Cardiovascular: positive: Irregularly irregular Abdomen: positive: Other (Mildly distended, probable fluid wave, non-tender) Extremities: positive: Other (1+ edema to lower-shins) Neurologic/Psychiatric: positive: Oriented x3 (Non-focal) - LABS Result Diagrams: 08/02/20 04:33 08/02/20 04:33 - DIAGNOSTIC IMAGING Diagnostic Imaging Results: Final report reviewed - TIME SPENT Time Spent in Discharge (Minutes): 65
[2020-08-02 15:08] VITALS: BP 126/73
== END 2020-08-02 18:42 | disposition short-term general hospital (02) | DRG 291 ==
LOC: EDUNIT# → ED 14:27 → UNDOADMIN 17:10 → ICU 17:10 → MS2 17:10
PROVIDERS: ADMIT Internal Medicine; ATTEND Internal Medicine
PROC: 30233N1 Transfusion of Nonautologous Red Blood Cells into Peripheral Vein, Percutaneous Approach (ICD-10-PCS; principal; 2020-07-30)
DX: I50.813 Acute on chronic right heart failure (principal); R09.02 Hypoxemia; J81.0 Acute pulmonary edema; I13.0 Hypertensive heart and chronic kidney disease with heart failure and stage 1 through stage 4 chronic kidney disease, or unspecified chronic kidney disease; I50.33 Acute on chronic diastolic (congestive) heart failure; I11.0 Hypertensive heart disease with heart failure; I48.20 Chronic atrial fibrillation, unspecified; E78.00 Pure hypercholesterolemia, unspecified; D64.9 Anemia, unspecified; I85.01 Esophageal varices with bleeding; K21.9 Gastro-esophageal reflux disease without esophagitis; J96.01 Acute respiratory failure with hypoxia; N17.9 Acute kidney failure, unspecified; I82.622 Acute embolism and thrombosis of deep veins of left upper extremity; I48.19 Other persistent atrial fibrillation; E87.1 Hypo-osmolality and hyponatremia; L03.114 Cellulitis of left upper limb; D50.0 Iron deficiency anemia secondary to blood loss (chronic); N18.9 Chronic kidney disease, unspecified; I95.9 Hypotension, unspecified; I27.81 Cor pulmonale (chronic); K74.60 Unspecified cirrhosis of liver; R63.0 Anorexia; M79.661 Pain in right lower leg; E88.09 Other disorders of plasma-protein metabolism, not elsewhere classified; Z68.23 Body mass index [BMI] 23.0-23.9, adult; Z99.81 Dependence on supplemental oxygen; Z95.1 Presence of aortocoronary bypass graft; Z79.01 Long term (current) use of anticoagulants; Z79.82 Long term (current) use of aspirin; Z79.899 Other long term (current) drug therapy
CPT/HCPCS: 36415; 71045; 80053; 82140; 82272; 82607; 82746; 83540; 83690; 83735; 83880; 84100; 84466; 84484; 85018; 85025; 86850; 86900; 86901; 86920; 87150; 93005; 93971; 96374; 99285; A9270; P9016

== ENCOUNTER 2020-08-02 18:34 | Outpatient (CLI) | payer MEDICARE, OTHER | END 2020-08-02 18:35 | disposition short-term general hospital (02) | LOC: EMS 18:34 | PROVIDERS: ATTEND Surgery | DX: K72.90 Hepatic failure, unspecified without coma (principal); N18.9 Chronic kidney disease, unspecified; N17.9 Acute kidney failure, unspecified; K92.2 Gastrointestinal hemorrhage, unspecified; I82.622 Acute embolism and thrombosis of deep veins of left upper extremity; I50.9 Heart failure, unspecified | CPT/HCPCS: A0425; A0426 ==

== ENCOUNTER 2020-09-10 08:00 | Outpatient (CLI) | payer MEDICARE, OTHER ==
[2020-09-10 12:52] LABS: BASOPHILS # (AUTO) 0.1 10^3/uL (0.0-0.1); BASOPHILS % (AUTO) 1.6 %; EOSINOPHILS # (AUTO) 0.1 10^3/uL (0.0-0.7); EOSINOPHILS % (AUTO) 2.2 %; HGB - HEMOGLOBIN 11.1 g/dL (12.0-16.0); LYMPHOCYTES # (AUTO) 1.7 10^3/uL (1.5-3.5); LYMPHOCYTES % (AUTO) 27.2 %; MEAN CORPUSCULAR HEMOGLOBIN 34.8 pg (27.0-31.0); MEAN CORPUSCULAR HGB CONC 33.3 g/dL (32.0-36.0); MEAN CORPUSCULAR VOLUME 104.4 fL (81.0-99.0); MEAN PLATELET VOLUME 10.2 fL (7.9-10.8); MONOCYTES # (AUTO) 0.7 10^3/uL (0.0-1.0); MONOCYTES % (AUTO) 11.6 %; NEUTROPHILS # (AUTO) 3.6 10^3/uL (1.5-6.6); NEUTROPHILS % (AUTO) 56.8 %; PLT - PLATELET COUNT 184 10^3/uL (130-450); RED BLOOD COUNT 3.19 10^6/uL (4.20-5.40); RED CELL DISTRIBUTION WIDTH 18.7 % (12.0-15.0); WHITE BLOOD COUNT 6.4 x10^3/uL (4.8-10.8)
[2020-09-10 13:07] LABS: ALBUMIN/GLOBULIN RATIO 0.3 (1.0-2.2); CALCIUM 8.5 mg/dL (8.5-10.3); CREATININE 1.5 mg/dL (0.4-1.0); TOTAL PROTEIN 9.8 g/dL (6.7-8.2)
[2020-09-10 13:10] LABS: INR 1.2 (0.8-1.2); PT - PROTHROMBIN TIME 13.6 secs (9.9-12.6)
== END 2020-09-10 23:59 | disposition home or self-care (01) ==
LOC: LAB.R 08:00
PROVIDERS: ATTEND Family Medicine
DX: K92.2 Gastrointestinal hemorrhage, unspecified (principal); I13.0 Hypertensive heart and chronic kidney disease with heart failure and stage 1 through stage 4 chronic kidney disease, or unspecified chronic kidney disease; N17.9 Acute kidney failure, unspecified; I85.00 Esophageal varices without bleeding; Z79.82 Long term (current) use of aspirin
CPT/HCPCS: 80053; 85025; 85610

== ENCOUNTER 2020-09-29 14:59 | Outpatient (CLI) | payer MEDICARE, OTHER ==
--- NOTE | 2020-09-29 15:37 | XRAY Report ---
PROCEDURE: Chest 2 View X-Ray INDICATIONS: COARSE RESPIRATORY CRACKLES TECHNIQUE: 2 view(s) of the chest. COMPARISON: 07/30/2020. FINDINGS: Surgical changes and devices: Median sternotomy hardware and surgical clips are seen. Lungs and pleura: No pleural effusions or pneumothorax. Lungs are clear. Mediastinum: Mediastinal contours are normal. Heart size is normal. Bones and chest wall: No suspicious bony abnormalities. Soft tissues appear unremarkable. IMPRESSION: No acute cardiopulmonary pathology. Reviewed by: Omer Green MD on 09/29/2020 3:36 PM PST Approved by: Omer Green MD on 09/29/2020 3:36 PM PST Station ID: [id number]
== END 2020-09-29 23:59 | disposition home or self-care (01) ==
LOC: DI.WCP 14:59
PROVIDERS: ATTEND Family Medicine
DX: R09.89 Other specified symptoms and signs involving the circulatory and respiratory systems (principal)

== ENCOUNTER 2020-11-04 08:00 | Outpatient (CLI) | payer MEDICARE, OTHER ==
[2020-11-04 12:10] LABS: BASOPHILS # (AUTO) 0.1 10^3/uL (0.0-0.1); BASOPHILS % (AUTO) 0.5 %; EOSINOPHILS # (AUTO) 0.1 10^3/uL (0.0-0.7); EOSINOPHILS % (AUTO) 0.9 %; HGB - HEMOGLOBIN 12.6 g/dL (12.0-16.0); LYMPHOCYTES # (AUTO) 2.8 10^3/uL (1.5-3.5); LYMPHOCYTES % (AUTO) 21.8 %; MEAN CORPUSCULAR HEMOGLOBIN 35.3 pg (27.0-31.0); MEAN CORPUSCULAR HGB CONC 33.1 g/dL (32.0-36.0); MEAN CORPUSCULAR VOLUME 106.7 fL (81.0-99.0); MEAN PLATELET VOLUME 10.1 fL (7.9-10.8); MONOCYTES # (AUTO) 1.1 10^3/uL (0.0-1.0); MONOCYTES % (AUTO) 8.7 %; NEUTROPHILS # (AUTO) 8.6 10^3/uL (1.5-6.6); PLT - PLATELET COUNT 167 10^3/uL (130-450); RED BLOOD COUNT 3.57 10^6/uL (4.20-5.40)
[2020-11-04 12:29] LABS: ALBUMIN/GLOBULIN RATIO 0.7 (1.0-2.2); BILIRUBIN,TOTAL 1.8 mg/dL (0.2-1.0); CALCIUM 9.2 mg/dL (8.5-10.3); CREATININE 1.5 mg/dL (0.4-1.0); TOTAL PROTEIN 7.6 g/dL (6.7-8.2)
[2020-11-06 14:06] LABS: ALBUMIN 3.3 g/dL (3.8-4.8); ALPHA 1 GLOBULIN 0.4 g/dL (0.2-0.3); ALPHA 2 GLOBULIN 0.8 g/dL (0.5-0.9); BETA 1 GLOBULIN 0.5 g/dL (0.4-0.6); BETA 2 GLOBULIN 0.4 g/dL (0.2-0.5); GAMMA GLOBULIN 1.8 g/dL (0.8-1.7)
[2020-11-10 13:22] LABS: KAPPA/LAMBDA RATIO 1.63 (1.29-2.55)
== END 2020-11-04 23:59 | disposition home or self-care (01) ==
LOC: LAB.WCP 08:00
PROVIDERS: ATTEND Internal Medicine Nephrology
DX: N18.32 Chronic kidney disease, stage 3b (principal); D64.9 Anemia, unspecified
CPT/HCPCS: 36415; 80053; 81599; 82728; 83540; 83883; 84155; 84165; 84466; 85025; 86334

== ENCOUNTER 2020-11-08 12:21 | Outpatient (CLI) | payer MEDICARE, OTHER ==
[2020-11-08] MEDS ORDERED: GADOBUTROL 7.5 MMOL/7.5 ML VIAL IVP ONE (14:25)
--- NOTE | 2020-11-08 16:53 | MRI Report ---
PROCEDURE: Abdomen W/WO INDICATIONS: CIRRHOSIS CONTRAST: IV CONTRAST: Gadavist ml: 6 TECHNIQUE: Coronal ultra fast SE, axial 2D spoiled GE in- and [id number]; axial breath-hold T2 fast SE. Dynam ic axial ultra fast GE during the administration of contrast; post-contrast coronal ultra fast GE or 2D spoiled GE with fat saturation from the hepatic dome to the iliac crests. Optional diffusion weig hted imaging and ADC may be performed. COMPARISON: Ultrasound abdomen 03/13/19 FINDINGS: Image quality: There is motion artifact limiting evaluation. Lung bases: No basal pleural effusions. Heart size is enlarged. There is a small hiatal hernia. Sma ll gastroesophageal varices are demonstrated. Solid organs: The liver is nodular in contour with diffusely heterogeneous appearance of the hepatic parenchyma consistent with cirrhosis. No discrete hepatic mass, suspicious enhancement, or abnormal a reas of washout identified to suggest hepatocellular carcinoma. There is a small oval nonenhancing T2 hyperintense structure within the left hepatic lobe measuring up to 0.8 cm compatible with a small c yst. Biliary system is non dilated. The gallbladder is distended with dependent gallstones in the gallbla dder fundus. No intra or extrahepatic biliary ductal dilatation. Pancreas is normal in morphology wit hout a discrete mass identified. No adrenal nodules. Kidneys demonstrate no hydronephrosis. The sple en is normal in size. Nodes and vessels: No retroperitoneal or mesenteric adenopathy by size criteria. Aorta and inferior vena cava are normal in size. There is a small recanalized paraumbilical vein. There are small splen ic varices. Bowel and peritoneum: Visualized bowel loops are normal in caliber. There is a small amount of ascite s in the abdomen. Bones and soft tissues: No ventral hernias. Bone marrow is normal in overall signal. IMPRESSION: 1. Nodular cirrhotic liver redemonstrated without evidence of hepatocellular carcinoma. 2. Findings consistent with portal hypertension including gastroesophageal and splenic varices, a rec analized paraumbilical vein, and small amount of ascites. No splenomegaly. 3. Cholelithiasis without evidence of cholecystitis. Reviewed by: Abelardo Walsh MD on 11/08/2020 4:51 PM PST Approved by: Abelardo Walsh MD on 11/08/2020 4:51 PM PST Station ID: [id number]
== END 2020-11-08 12:22 | disposition home or self-care (01) ==
LOC: DI 12:21
PROVIDERS: ATTEND Family Medicine
DX: K74.60 Unspecified cirrhosis of liver (principal); K76.89 Other specified diseases of liver; K80.20 Calculus of gallbladder without cholecystitis without obstruction
CPT/HCPCS: 74183; A9585

== ENCOUNTER 2020-11-09 12:00 | Outpatient (CLI) | payer MEDICARE, OTHER ==
--- NOTE | 2020-11-09 15:22 | Ultrasound Report ---
PROCEDURE: Abdomen Limited INDICATIONS: CIRRHOSIS TECHNIQUE: Real-time scanning was performed of the abdominal and retroperitoneal organs, with image documentatio n. COMPARISON: MR abdomen 11/08/2019, ultrasound abdomen 03/26/2020 FINDINGS: Liver: Liver is nodular in contour with coarse/heterogeneous echotexture. It measures 14 cm. Gallbladder: Mobile focus of increased echogenicity is identified measuring 19 x 15 x 14 mm. Mild slu dge is noted. Wall thickness measures 2 mm. Biliary ducts: Intrahepatic bile ducts are non-dilated. Extrahepatic bile duct caliber measures 7 m m. Normal is 6-7 mm or less in diameter, or 10 mm or less post-cholecystectomy. Pancreas: Visualized portions of the pancreas mildly echogenic, overall nonspecific. Kidneys: Kidneys are normal in size and echotexture. Right kidney measures 10.3 cm long. No hydron ephrosis or nephrolithiasis. No solid masses. Aorta: Visualized aorta is normal in caliber at less than 3 cm. Iliacs: Proximal common iliac arteries are normal in caliber at less than 2.5 cm. IVC: Intrahepatic inferior vena cava is patent. IMPRESSION: 1. Nodular contour of the liver with coarse heterogeneous echotexture most consistent with cirrhosis. No focal lesions are identified. 2. Cholelithiasis without imaging evidence of cholecystitis. Reviewed by: Soraida Melendez MD on 11/09/2020 3:20 PM PST Approved by: Soraida Melendez MD on 11/09/2020 3:20 PM PST Station ID: [id number]
== END 2020-11-09 12:01 | disposition home or self-care (01) ==
LOC: DI 12:00
PROVIDERS: ATTEND Internal Medicine Gastroenterology
DX: R93.2 Abnormal findings on diagnostic imaging of liver and biliary tract (principal); K80.20 Calculus of gallbladder without cholecystitis without obstruction

== ENCOUNTER 2021-01-24 08:00 | Outpatient (CLI) | payer MEDICARE, OTHER ==
[2021-01-24 11:54] LABS: BASOPHILS % (AUTO) 0.3 %; EOSINOPHILS # (AUTO) 0.1 10^3/uL (0.0-0.7); EOSINOPHILS % (AUTO) 0.7 %; HCT - HEMATOCRIT 44.5 % (37.0-47.0); HGB - HEMOGLOBIN 14.7 g/dL (12.0-16.0); LYMPHOCYTES # (AUTO) 2.1 10^3/uL (1.5-3.5); LYMPHOCYTES % (AUTO) 17.7 %; MEAN CORPUSCULAR HEMOGLOBIN 33.8 pg (27.0-31.0); MEAN CORPUSCULAR VOLUME 102.3 fL (81.0-99.0); MEAN PLATELET VOLUME 12.1 fL (7.9-10.8); MONOCYTES # (AUTO) 0.8 10^3/uL (0.0-1.0); MONOCYTES % (AUTO) 6.6 %; NEUTROPHILS # (AUTO) 8.5 10^3/uL (1.5-6.6); NEUTROPHILS % (AUTO) 73.2 %; PLT - PLATELET COUNT 110 10^3/uL (130-450); RED BLOOD COUNT 4.35 10^6/uL (4.20-5.40); RED CELL DISTRIBUTION WIDTH 14.5 % (12.0-15.0); WHITE BLOOD COUNT 11.7 x10^3/uL (4.8-10.8)
[2021-01-24 12:06] LABS: INR 1.1 (0.8-1.2); PT - PROTHROMBIN TIME 12.5 secs (9.9-12.6)
[2021-01-24 13:16] LABS: PLATELET ESTIMATE, MANUAL DECREASED (<130,000) (NORMAL); PLATELET MORPHOLOGY NORMAL APPEARANCE (NORMAL); RBC MORPHOLOGY (MULTIPLE) NORMAL APPEARANCE (NORMAL); SLIDE REVIEW? Indicated; WBC MORPHOLOGY (MULTIPLE) NORMAL APPEARANCE (NORMAL)
[2021-01-24 13:26] LABS: ALBUMIN 3.3 g/dL (3.2-5.5); ALBUMIN/GLOBULIN RATIO 0.8 (1.0-2.2); BILIRUBIN,TOTAL 2.7 mg/dL (0.2-1.0); CALCIUM 9.6 mg/dL (8.5-10.3); CREATININE 1.7 mg/dL (0.4-1.0); POTASSIUM 4.1 mmol/L (3.5-5.0); TOTAL PROTEIN 7.5 g/dL (6.7-8.2)
== END 2021-01-24 23:59 | disposition home or self-care (01) ==
LOC: LAB.WCP 08:00
PROVIDERS: ATTEND Family Medicine
DX: K72.90 Hepatic failure, unspecified without coma (principal)
CPT/HCPCS: 36415; 80053; 83735; 85025; 85610

== ENCOUNTER 2021-03-03 10:47 | Outpatient (CLI) | payer MEDICARE, OTHER ==
[2021-03-03 18:09] LABS: BASOPHILS % (AUTO) 0.3 %; EOSINOPHILS % (AUTO) 0.2 %; HCT - HEMATOCRIT 46.4 % (37.0-47.0); HGB - HEMOGLOBIN 15.4 g/dL (12.0-16.0); LYMPHOCYTES # (AUTO) 1.6 10^3/uL (1.5-3.5); LYMPHOCYTES % (AUTO) 12.6 %; MEAN CORPUSCULAR HEMOGLOBIN 34.3 pg (27.0-31.0); MEAN CORPUSCULAR HGB CONC 33.2 g/dL (32.0-36.0); MEAN CORPUSCULAR VOLUME 103.3 fL (81.0-99.0); MONOCYTES # (AUTO) 0.8 10^3/uL (0.0-1.0); MONOCYTES % (AUTO) 6.1 %; NEUTROPHILS % (AUTO) 78.8 %; NRBC ABSOLUTE COUNT (AUTO) 0.02 x10^3/uL; NUCLEATED RED BLOOD CELLS AUTO 0.2 /100WBC; RED BLOOD COUNT 4.49 10^6/uL (4.20-5.40); WHITE BLOOD COUNT 12.7 x10^3/uL (4.8-10.8)
[2021-03-03 18:11] LABS: SLIDE REVIEW? Indicated
[2021-03-03 18:34] LABS: PLATELET ESTIMATE, MANUAL DECREASED (<130,000) (NORMAL); PLATELET MORPHOLOGY PLATELET CLUMPING (NORMAL); RBC MORPHOLOGY (MULTIPLE) NORMAL APPEARANCE (NORMAL); WBC MORPHOLOGY (MULTIPLE) NORMAL APPEARANCE (NORMAL)
== END 2021-03-03 23:59 | disposition home or self-care (01) ==
LOC: LAB.WCP 10:47
PROVIDERS: ATTEND Internal Medicine Nephrology
DX: N18.32 Chronic kidney disease, stage 3b (principal); D64.9 Anemia, unspecified
CPT/HCPCS: 36415; 85025

== ENCOUNTER 2021-03-16 10:35 | Outpatient (CLI) | payer MEDICARE, OTHER ==
[2021-03-16 18:08] LABS: BASOPHILS # (AUTO) 0.1 10^3/uL (0.0-0.1); BASOPHILS % (AUTO) 0.4 %; EOSINOPHILS # (AUTO) 0.1 10^3/uL (0.0-0.7); EOSINOPHILS % (AUTO) 0.5 %; HCT - HEMATOCRIT 45.1 % (37.0-47.0); HGB - HEMOGLOBIN 14.7 g/dL (12.0-16.0); LYMPHOCYTES # (AUTO) 1.9 10^3/uL (1.5-3.5); LYMPHOCYTES % (AUTO) 14.8 %; MEAN CORPUSCULAR HEMOGLOBIN 33.9 pg (27.0-31.0); MEAN CORPUSCULAR HGB CONC 32.6 g/dL (32.0-36.0); MEAN CORPUSCULAR VOLUME 104.2 fL (81.0-99.0); MONOCYTES # (AUTO) 0.9 10^3/uL (0.0-1.0); MONOCYTES % (AUTO) 7.1 %; NEUTROPHILS # (AUTO) 9.6 10^3/uL (1.5-6.6); NEUTROPHILS % (AUTO) 74.9 %; NRBC ABSOLUTE COUNT (AUTO) 0.02 x10^3/uL; NUCLEATED RED BLOOD CELLS AUTO 0.2 /100WBC; PLT - PLATELET COUNT 83 10^3/uL (130-450); RED BLOOD COUNT 4.33 10^6/uL (4.20-5.40); WHITE BLOOD COUNT 12.8 x10^3/uL (4.8-10.8)
[2021-03-16 18:17] LABS: ALBUMIN 3.1 g/dL (3.2-5.5); ALBUMIN/GLOBULIN RATIO 0.8 (1.0-2.2); BILIRUBIN,TOTAL 2.1 mg/dL (0.2-1.0); CALCIUM 9.1 mg/dL (8.5-10.3); CREATININE 2.1 mg/dL (0.4-1.0); POTASSIUM 4.2 mmol/L (3.5-5.0); TOTAL PROTEIN 6.8 g/dL (6.7-8.2)
== END 2021-03-16 23:59 | disposition home or self-care (01) ==
LOC: LAB.WCP 10:35
PROVIDERS: ATTEND Internal Medicine Nephrology
DX: N18.32 Chronic kidney disease, stage 3b (principal); D64.9 Anemia, unspecified
CPT/HCPCS: 36415; 80053; 85025

== ENCOUNTER 2021-03-23 08:00 | Outpatient (CLI) | payer MEDICARE, OTHER ==
[2021-03-23 18:15] LABS: CALCIUM 9.1 mg/dL (8.5-10.3); CREATININE 2.2 mg/dL (0.4-1.0); POTASSIUM 4.2 mmol/L (3.5-5.0)
== END 2021-03-23 23:59 | disposition home or self-care (01) ==
LOC: LAB.WCP 08:00
PROVIDERS: ATTEND Internal Medicine Nephrology
DX: N17.9 Acute kidney failure, unspecified (principal)
CPT/HCPCS: 36415; 80048

== ENCOUNTER 2021-03-30 08:00 | Outpatient (CLI) | payer MEDICARE, OTHER ==
[2021-03-30 18:47] LABS: CALCIUM 9.1 mg/dL (8.5-10.3); CREATININE 2.6 mg/dL (0.4-1.0); POTASSIUM 4.6 mmol/L (3.5-5.0)
== END 2021-03-30 23:59 | disposition home or self-care (01) ==
LOC: LAB.WCP 08:00
PROVIDERS: ATTEND Internal Medicine Nephrology
DX: N17.9 Acute kidney failure, unspecified (principal)
CPT/HCPCS: 36415; 80048

== ENCOUNTER 2021-04-15 07:49 | Outpatient (CLI) | payer MEDICARE, OTHER ==
--- NOTE | 2021-04-15 10:34 | Ultrasound Report ---
PROCEDURE: Abdomen Complete INDICATIONS: CIRRHOSIS OF LIVER TECHNIQUE: Real-time scanning was performed of the abdominal and retroperitoneal organs, with image documentatio n. COMPARISON: None. FINDINGS: Liver: Cyst is present within the left lobe measuring 9 mm. Nodular contour of the liver. Coarsely echogenic liver suggesting hepatic steatosis/diffuse hepatocellular disease. Please correlate with LF Ts. Liver measures 12.0 cm in length Gallbladder: 1.1 cm gallstone is seen. No pericholecystic fluid. No sonographic Comer's sign. Biliary ducts: Intrahepatic bile ducts are non-dilated. Extrahepatic bile duct caliber measures 4 m m. Normal is 6-7 mm or less in diameter, or 10 mm or less post-cholecystectomy. Pancreas: Visualized portions of the pancreas are sonographically normal. Spleen: Spleen is normal in size and homogeneous in echotexture. Kidneys: Right kidney measures 10.9 cm long; left kidney measures 9.7 cm long. No hydronephrosis o r nephrolithiasis. A previously described right inferior pole angiomyolipoma is not well seen sono graphically on the current examination. This may be obscured by shadowing bowel gas. However, 1.7 x 1 .2 x 1.1 cm solid-appearing lesion with internal vascularity seen in the left kidney. Of note, in the left upper quadrant lateral and superior to left kidney is a ill-defined mass with as sociated vascularity measuring 3.9 x 2.5 x 3.2 cm. Aorta: Visualized aorta is normal in caliber at less than 3 cm. Iliacs: Proximal common iliac arteries are normal in caliber at less than 2.5 cm. IVC: Intrahepatic inferior vena cava is patent. Miscellaneous: No free abdominal fluid. IMPRESSION: Left upper quadrant mass lateral and superior to left kidney, indeterminate. Recommend further evalua tion with CT abdomen pelvis with contrast. This could reflect hematoma (given recent history of traum a) however certainly cannot exclude neoplasm. Solid appearing left renal lesion at the inferior pole. This could also be evaluated with cross-secti onal imaging follow-up since renal cell carcinoma is in the differential, until proven otherwise. Cirrhosis of liver Left hepatic cyst Incidental cholelithiasis. Additional chronic and incidental findings as above. Reviewed by: Carlos Yan MD on 04/15/2021 10:33 AM PDT Approved by: Carlos Yan MD on 04/15/2021 10:33 AM PDT Station ID: [id number]
== END 2021-04-15 07:50 | disposition home or self-care (01) ==
LOC: DI 07:49
PROVIDERS: ATTEND Internal Medicine Gastroenterology
DX: K74.60 Unspecified cirrhosis of liver (principal); N28.9 Disorder of kidney and ureter, unspecified; R19.02 Left upper quadrant abdominal swelling, mass and lump; K76.89 Other specified diseases of liver

== ENCOUNTER 2021-04-25 15:02 | Outpatient (CLI) | payer MEDICARE, OTHER ==
--- NOTE | 2021-04-25 16:19 | XRAY Report ---
PROCEDURE: Lumbar Spine Complete INDICATIONS: ACUTE LOW BACK PX TECHNIQUE: 5 views of the lumbar spine were acquired. COMPARISON: None FINDINGS: Bones: 5 [id number] vertebrae are present. There is leftward scoliotic curvature with apex at L3. There is rated 1 anterolisthesis of L4 4 on L5 measuring 9 mm. There is a compression deformity a t L1 measuring approximately 75%. Compression deformity at L3 is also present measuring approximately 50%. No priors are available for comparison. Moderate to severe multilevel degenerative disc and for aminal narrowing are present. No suspicious bony lesions. Multilevel anterior osteophytes are presen t. Soft tissues: Overlying bowel gas pattern is normal. No suspicious soft tissue calcifications. IMPRESSION: Compression deformities at L1 and L3 of indeterminate age is suspected to be chronic. Ho wever, if there is given history of trauma, acute fracture cannot be excluded. Reviewed by: Soraida Melendez MD on 04/25/2021 4:18 PM PDT Approved by: Soraida Melendez MD on 04/25/2021 4:18 PM PDT Station ID: [id number]
== END 2021-04-25 15:03 | disposition home or self-care (01) ==
LOC: DI.N 15:02
PROVIDERS: ATTEND Family Medicine
DX: M54.5 Low back pain (principal)

== ENCOUNTER 2021-05-04 14:54 | Inpatient (IN) | payer MEDICARE, OTHER ==
[~2021-05-04 14:54] MED LIST: PIPERACILLIN/TAZOBACTAM 2.25 GM in SODIUM CHLORIDE 0.9% MINIBAG 100 ML IV SCH
[2021-05-04] MEDS ORDERED: SODIUM CHLORIDE 0.9% 1,000 ML IV STA ×3 (15:30→18:13)
--- NOTE | 2021-05-04 15:37 | ED Physician Documentation ---
History of Present Illness - Stated complaint Stated Complaint: LOW BP/CONFUSION - Chief complaint Chief Complaint: Neuro - History obtained from History obtained from: Patient, Family - History of Present Illness Timing: How many days ago (4) Pain level max: 7 Pain level now: 3 - Additonal information Additional information: Patient was brought into the emergency department by her today. She has a history of liver cirrhosis, has been weaker than usual, not eating or drinking for the past 3 to 4 days. He states that she did fall several weeks ago and has lumbar spine compression fractures, worse with movement and better with rest. No fevers. No chills. No coughing. Did have some diarrhea today. Does have a history of varices, but is not having any vomiting. No blood in the stool or hematemesis. Review of Systems Unable to obtain: AMS, Confused PD PAST MEDICAL HISTORY - Past Medical History Cardiovascular: Hypertension, High cholesterol Respiratory: None Neuro: None Endocrine/Autoimmune: None GI: GERD - Past Surgical History Past Surgical History: Yes Cardiovascular: CABG - Present Medications Home Medications: Ambulatory Orders Medication Instructions Recorded Confirmed Fluocinonide/Emollient Base 15 gm TP BID 06/04/13 10/15/20 [Fluocinonide-Emol 0.05% Cream] Cephalexin [Keflex] 500 mg PO Q6HR 12/04/15 10/15/20 Oxycodone HCl 5 mg PO Q8H PRN #14 tablet 07/26/20 10/15/20 Acetaminophen [Tylenol Extra 500 mg PO PRN PRN 07/31/20 10/15/20 Strength] Amlodipine Besylate 10 mg PO DAILY 07/31/20 10/15/20 Apixaban [Eliquis] 5 mg PO BID 07/31/20 10/15/20 Pantoprazole Sodium 40 mg PO DAILY 07/31/20 10/15/20 Sodium Bicarbonate 650 mg PO TID 07/31/20 10/15/20 Spironolactone 25 mg PO DAILY 07/31/20 10/15/20 Furosemide [Lasix] 40 mg PO DAILY 08/27/20 10/15/20 - Allergies Allergies/Adverse Reactions: Allergies Allergy/AdvReac Type Severity Reaction Status Date / Time No Known Drug Allergies Allergy Verified 10/15/20 15:16 - Social History Does the pt smoke?: No Smoking Status: Never smoker Does the pt drink ETOH?: No Does the pt have substance abuse?: No - Immunizations Immunizations are current?: Yes PD ED PE NORMAL - Vitals Vital signs reviewed: Yes - General General: Other (Drowsy, arousable) - HEENT HEENT: Moist mucous membranes - Neck Neck: Supple, no meningeal sign - Cardiac Cardiac: RRR - Respiratory Respiratory: No respiratory distress, Clear bilaterally - Abdomen Abdomen: Soft, Other (Mild diffuse tenderness to palpation. No peritoneal signs) - Back Back: Other (Small open sores on her back from a heating pad, no signs of infection) - Derm Derm: Other (Cool, dry) - Extremities Extremities: No calf tenderness / cord - Neuro Neuro: Other (Nausea, arousable, not oriented) Results - Vitals Vitals: Vital Signs - 24 hr 05/04/21 05/04/21 05/04/21 15:15 16:09 16:30 Temperature 36.6 C 36.2 C L 36.2 C L Heart Rate 70 72 78 Respiratory 16 15 17 Rate Blood Pressure 85/54 L 87/53 L 85/67 L O2 Saturation 99 98 98 05/04/21 05/04/21 05/04/21 17:00 17:30 18:52 Temperature 36.1 C L 35.8 C L 36.2 C L Heart Rate 72 70 65 Respiratory 19 16 20 Rate Blood Pressure 92/61 72/51 L 84/56 L O2 Saturation 98 95 97 05/04/21 05/04/21 05/04/21 19:04 19:30 20:07 Temperature 36.2 C L 36.3 C L 36.7 C Heart Rate 59 L 68 66 Respiratory 21 19 21 Rate Blood Pressure 90/59 L 93/61 99/81 H O2 Saturation 98 97 96 05/04/21 20:30 Temperature 36.9 C Heart Rate 66 Respiratory 24 Rate Blood Pressure 95/56 L O2 Saturation 96 Oxygen O2 Source Room air - EKG (time done) 1533 Rate: Rate (enter#) (63) Rhythm: Atrial fibrillation Intervals: RBBB Ischemia: Non specific changes - Labs Labs: Microbiology 05/04/21 15:55 Occult Blood - Final Stool Laboratory Tests 05/04/21 05/04/21 05/04/21 15:49 15:49 15:49 WBC 12.2 H RBC 5.32 Hgb 18.0 H Hct 55.0 H MCV 103.4 H MCH 33.8 H MCHC 32.7 RDW 17.1 H Plt Count 123 L MPV 11.6 H Neut # (Auto) 10.1 H Lymph # (Auto) 1.2 L [place] # (Auto) 0.5 Eos # (Auto) 0.0 Baso # (Auto) 0.1 Absolute Nucleated RBC 0.55 Nucleated RBC % 4.5 PT 14.6 H INR 1.3 H APTT 27.2 Sodium Potassium Chloride Carbon Dioxide Anion Gap BUN Creatinine Estimated GFR (MDRD) Glucose Lactic Acid 6.1 H* Calcium Total Bilirubin AST ALT Alkaline Phosphatase Ammonia Total Creatine Kinase Total Protein Albumin Globulin Albumin/Globulin Ratio Lipase Urine Color Urine Clarity Urine pH Ur Specific [place] Urine Protein Urine Glucose (UA) Urine Ketones Urine Occult Blood Urine Nitrite Urine Bilirubin Urine Urobilinogen Ur Leukocyte Esterase Ur Microscopic Review Urine Culture Comments Nasal Adenovirus (PCR) Nasal B. parapertussis DNA (PCR) Nasal Coronavir 229E PCR Nasal Coronavir HKU1 PCR Nasal Coronavir NL63 PCR Nasal Coronavir OC43 PCR Nasal Enterovir/Rhinovir PCR Nasal Influenza B PCR Nasal Influenza A PCR Nasal Parainfluen 1 PCR Nasal Parainfluen 2 PCR Nasal Parainfluen 3 PCR Nasal Parainfluen 4 PCR Nasal RSV (PCR) Nasal B.pertussis DNA PCR Nasal C.pneumoniae (PCR) Randy Human Metapneumo PCR Nasal M.pneumoniae (PCR) Nasal SARS-CoV-2 (PCR) 05/04/21 05/04/21 05/04/21 15:49 16:16 16:36 WBC RBC Hgb Hct MCV MCH MCHC RDW Plt Count MPV Neut # (Auto) Lymph # (Auto) [place] # (Auto) Eos # (Auto) Baso # (Auto) Absolute Nucleated RBC Nucleated RBC % PT INR APTT Sodium Potassium Chloride Carbon Dioxide Anion Gap BUN Creatinine Estimated GFR (MDRD) Glucose Lactic Acid Calcium Total Bilirubin AST ALT Alkaline Phosphatase Ammonia 55.4 H Total Creatine Kinase Total Protein Albumin Globulin Albumin/Globulin Ratio Lipase Urine Color YELLOW Urine Clarity N Urine pH 5.5 Ur Specific [place] 1.025 Urine Protein NEGATIVE Urine Glucose (UA) NEGATIVE Urine Ketones NEGATIVE Urine Occult Blood NEGATIVE Urine Nitrite NEGATIVE Urine Bilirubin NEGATIVE Urine Urobilinogen 0.2 (NORMAL) Ur Leukocyte Esterase NEGATIVE Ur Microscopic Review NOT INDICATED Urine Culture Comments NOT INDICATED Nasal Adenovirus (PCR) NOT DETECTED Nasal B. parapertussis DNA (PCR) NOT DETECTED Nasal Coronavir 229E PCR NOT DETECTED Nasal Coronavir HKU1 PCR NOT DETECTED Nasal Coronavir NL63 PCR NOT DETECTED Nasal Coronavir OC43 PCR NOT DETECTED Nasal Enterovir/Rhinovir PCR NOT DETECTED Nasal Influenza B PCR NOT DETECTED Nasal Influenza A PCR NOT DETECTED Nasal Parainfluen 1 PCR NOT DETECTED Nasal Parainfluen 2 PCR NOT DETECTED Nasal Parainfluen 3 PCR NOT DETECTED Nasal Parainfluen 4 PCR NOT DETECTED Nasal RSV (PCR) NOT DETECTED Nasal B.pertussis DNA PCR NOT DETECTED Nasal C.pneumoniae (PCR) NOT DETECTED Randy Human Metapneumo PCR NOT DETECTED Nasal M.pneumoniae (PCR) NOT DETECTED Nasal SARS-CoV-2 (PCR) NOT DETECTED 05/04/21 05/04/21 16:50 18:58 WBC RBC Hgb Hct MCV MCH MCHC RDW Plt Count MPV Neut # (Auto) Lymph # (Auto) [place] # (Auto) Eos # (Auto) Baso # (Auto) Absolute Nucleated RBC Nucleated RBC % PT INR APTT Sodium 134 L Potassium 5.2 H Chloride 100 L Carbon Dioxide 13 L Anion Gap 21.0 H BUN 164 H* Creatinine 5.0 H Estimated GFR (MDRD) 8 L Glucose 100 Lactic Acid 4.4 H* Calcium 10.1 Total Bilirubin 3.8 H AST 81 H ALT 46 Alkaline Phosphatase 129 H Ammonia Total Creatine Kinase 50 Total Protein 5.6 L Albumin 2.7 L Globulin 2.9 Albumin/Globulin Ratio 0.9 L Lipase 70 H Urine Color Urine Clarity Urine pH Ur Specific [place] Urine Protein Urine Glucose (UA) Urine Ketones Urine Occult Blood Urine Nitrite Urine Bilirubin Urine Urobilinogen Ur Leukocyte Esterase Ur Microscopic Review Urine Culture Comments Nasal Adenovirus (PCR) Nasal B. parapertussis DNA (PCR) Nasal Coronavir 229E PCR Nasal Coronavir HKU1 PCR Nasal Coronavir NL63 PCR Nasal Coronavir OC43 PCR Nasal Enterovir/Rhinovir PCR Nasal Influenza B PCR Nasal Influenza A PCR Nasal Parainfluen 1 PCR Nasal Parainfluen 2 PCR Nasal Parainfluen 3 PCR Nasal Parainfluen 4 PCR Nasal RSV (PCR) Nasal B.pertussis DNA PCR Nasal C.pneumoniae (PCR) Randy Human Metapneumo PCR Nasal M.pneumoniae (PCR) Nasal SARS-CoV-2 (PCR) - Rads (name of study) head CT Radiology: Final report received, EMP read contemporaneously, See rad report (1. No acute intracranial disease process. 2. Acute superimposed upon chronic left sphenoid sinusitis. 3. Opacified left mastoid air cells, left middle ear and left external auditory canal which may due to infectious otomastoiditis or underlying neoplastic process. Recommend ENT consultation. ) cxr Radiology: Final report received, EMP read contemporaneously, See rad report (1. Cardiomegaly. 2. No acute abnormality of the chest. ) CT abd/pelvis Radiology: Final report received, EMP read contemporaneously, See rad report PD MEDICAL DECISION MAKING - ED course Complexity details: reviewed results, re-evaluated patient, considered differential, d/w family, d/w otm consultant ED course: Patient is an 81-year-old female who presents to the emergency department with hypotension, hypothermia, altered mental status and concern for sepsis. Unclear source. She has potential osteomyelitis of the left mastoid area. Appears to have a neoplastic process such as lymphoma in her abdomen. Has a history of cirrhosis. Has acute kidney failure with uremia. Given IV fluids, antibiotics, patient warmed. Discussed goals of care and CODE STATUS with the and their children. They would like her main goal of care to be comfort, they do not want intubation, CPR mechanical ventilation or invasive procedures. They would like IV fluids and antibiotics and see how the patient progresses. Discussed the case with Dr. Iqbal who accepts. This document was made in part using voice recognition software. While efforts are made to proofread this document, sound alike and grammatical errors may occur. IMPRESSION: 1. Diffuse groundglass opacities with multiple irregular masses throughout the peritoneum and posterior to the left kidney. A neoplastic process such as lymphoma is favored. 2. The sigmoid colon demonstrates diverticulosis with there is a surrounding inflammation which have the appearance of acute diverticulitis, however in consideration of other findings could be due to the above described process. Departure - Departure Disposition: 66 [facility] DC/Xfer Clinical Impression: Hypotension Qualifiers: Hypotension type: unspecified hypotension type Qualified Code(s): I95.9 - Hypotension, unspecified Sepsis Qualifiers: Sepsis type: sepsis due to unspecified organism Sepsis acute organ dysfunction status: with acute organ dysfunction Severe sepsis acute organ dysfunction type: acute renal failure Acute renal failure type: unspecified Severe sepsis shock status: with septic shock Qualified Code(s): A41.9 - Sepsis, unspecified organism Kidney failure Qualifiers: Renal failure chronicity: acute on chronic Acute renal failure type: unspecified Chronic kidney disease stage: unspecified stage Qualified Code(s): N17.9 - Acute kidney failure, unspecified Liver cirrhosis Qualifiers: Hepatic cirrhosis type: unspecified hepatic cirrhosis Ascites presence: with ascites Qualified Code(s): K74.60 - Unspecified cirrhosis of liver Lymphoma Qualifiers: Lymphoma type: unspecified type Lymphoma site: unspecified region Qualified Code(s): C85.90 - Non-Hodgkin lymphoma, unspecified, unspecified site Condition: Poor Discharge Date/Time: 05/04/21 21:30
[2021-05-04 15:56] LABS: BASOPHILS # (AUTO) 0.1 10^3/uL (0.0-0.1); BASOPHILS % (AUTO) 0.5 %; EOSINOPHILS % (AUTO) 0.2 %; LYMPHOCYTES # (AUTO) 1.2 10^3/uL (1.5-3.5); LYMPHOCYTES % (AUTO) 9.7 %; MEAN CORPUSCULAR HEMOGLOBIN 33.8 pg (27.0-31.0); MEAN CORPUSCULAR HGB CONC 32.7 g/dL (32.0-36.0); MEAN CORPUSCULAR VOLUME 103.4 fL (81.0-99.0); MEAN PLATELET VOLUME 11.6 fL (7.9-10.8); MONOCYTES # (AUTO) 0.5 10^3/uL (0.0-1.0); MONOCYTES % (AUTO) 4.3 %; NEUTROPHILS # (AUTO) 10.1 10^3/uL (1.5-6.6); NEUTROPHILS % (AUTO) 82.9 %; NRBC ABSOLUTE COUNT (AUTO) 0.55 x10^3/uL; NUCLEATED RED BLOOD CELLS AUTO 4.5 /100WBC; PLT - PLATELET COUNT 123 10^3/uL (130-450); RED BLOOD COUNT 5.32 10^6/uL (4.20-5.40); RED CELL DISTRIBUTION WIDTH 17.1 % (12.0-15.0); WHITE BLOOD COUNT 12.2 x10^3/uL (4.8-10.8)
[2021-05-04 16:11] LABS: INR 1.3 (0.8-1.2); PT - PROTHROMBIN TIME 14.6 secs (9.9-12.6)
--- NOTE | 2021-05-04 16:17 | CT Report ---
PROCEDURE: HEAD WO INDICATIONS: fall, aloc TECHNIQUE: Noncontrast 4.5 mm thick angled axial sections acquired from the foramen magnum to the vertex. For r adiation dose reduction, the following was used: automated exposure control, adjustment of mA and/or kV according to patient size. COMPARISON: None FINDINGS: Image quality: Excellent. CSF spaces: Basal cisterns are patent. No extra-axial fluid collections. The ventricles are symmet cosmo in size and shape. Brain: No intracranial bleeds or masses. There is cerebral volume loss for age, with resultant vent ricular and sulcal prominence. There are periventricular and deep white matter chronic small vessel ischemic changes. There is intracranial internal carotid artery and vertebral artery atherosclerosis . Skull and face: Calvarium and visualized facial bones appear intact, without suspicious lesions. Sinuses: Mucosal thickening and frothy air-fluid level noted in the left sphenoid sinus. Left mastoid air cells, left middle ear and medial portion of the left external auditory canal are opacified. IMPRESSION: 1. No acute intracranial disease process. 2. Acute superimposed upon chronic left sphenoid sinusitis. 3. Opacified left mastoid air cells, left middle ear and left external auditory canal which may due t o infectious otomastoiditis or underlying neoplastic process. Recommend ENT consultation. Reviewed by: So Mcdaniels MD, PhD on 05/04/2021 4:16 PM PDT Approved by: So Mcdaniels MD, PhD on 05/04/2021 4:16 PM PDT Station ID: [id number]
[2021-05-04 16:19] LABS: PARTIAL THROMBOPLASTIN TIME 27.2 secs (24.9-33.3)
[2021-05-04 16:23] LABS: LACTIC ACID, VENOUS 6.1 mmol/L (0.5-2.2)
[2021-05-04] MEDS ORDERED: ELECTROLYTE-A SOLUTION 1,000 ML IV ONE (16:24)
[2021-05-04 16:28] LABS: BILIRUBIN,URINE NEGATIVE (NEGATIVE); GLUCOSE, URINE (UA) NEGATIVE (NEGATIVE); KETONES,URINE (UA) NEGATIVE (NEGATIVE); LEUKOCYTE ESTERASE, URINE NEGATIVE (NEGATIVE); NITRITE,URINE NEGATIVE (NEGATIVE); OCCULT BLOOD,URINE NEGATIVE (NEGATIVE); PH,URINE 5.5 PH (5.0-7.5); PROTEIN,URINE NEGATIVE (NEGATIVE); UROBILINOGEN,URINE 0.2 (NORMAL) E.U./dL (NORMAL)
[2021-05-04 16:33] LABS: CLARITY,URINE N (CLEAR)
[2021-05-04] MEDS ORDERED: VANCOMYCIN INJ 1.25 GM in SODIUM CHLORIDE 0.9% 250 ML IV STA (17:12)
[2021-05-04] MEDS ORDERED: PIPERACILLIN/TAZOBACTAM 3.375 GM in SODIUM CHLORIDE 0.9% MINIBAG 100 ML IV STA (17:12)
[2021-05-04] MEDS ORDERED: VANCOMYCIN INJ 1 GM, VANCOMYCIN INJ 500 MG in SODIUM CHLORIDE 0.9% 500 ML IV STA (17:16)
[2021-05-04 17:22] LABS: ALBUMIN 2.7 g/dL (3.2-5.5); ALBUMIN/GLOBULIN RATIO 0.9 (1.0-2.2); BILIRUBIN,TOTAL 3.8 mg/dL (0.2-1.0); CALCIUM 10.1 mg/dL (8.5-10.3); POTASSIUM 5.2 mmol/L (3.5-5.0); TOTAL PROTEIN 5.6 g/dL (6.7-8.2)
[2021-05-04 17:52] LABS: B. PARAPERTUSSIS- RESP PCR PAN NOT DETECTED; B. PERTUSSIS- RESP PCR PANEL NOT DETECTED; C. PNEUMONIAE- RESP PCR PANEL NOT DETECTED; CORONAVIRUS 229E-RESP PCR NOT DETECTED; CORONAVIRUS HKU1-RESP PCR NOT DETECTED; CORONAVIRUS NL63-RESP PCR NOT DETECTED; CORONAVIRUS OC43-RESP PCR NOT DETECTED; HUMAN METAPNEUMOVIRUS NOT DETECTED; INFLUENZA A- RESP PCR PANEL NOT DETECTED; INFLUENZA B - RESP PCR PANEL NOT DETECTED; M. PNEUMONIAE- RESP PCR PANEL NOT DETECTED; PARAINFLUENZA VIRUS 1 NOT DETECTED; PARAINFLUENZA VIRUS 2 NOT DETECTED; PARAINFLUENZA VIRUS 3 NOT DETECTED; PARAINFLUENZA VIRUS 4 NOT DETECTED; RHINOVIRUS/ENTEROVIRUS NOT DETECTED; RSV- RESP PCR PANEL NOT DETECTED; SARS-CoV-2 -RESP PCR PANEL NOT DETECTED
--- NOTE | 2021-05-04 18:04 | XRAY Report ---
PROCEDURE: Chest 1 View X-Ray INDICATIONS: hypothermia TECHNIQUE: One view of the chest was acquired. COMPARISON: None FINDINGS: Surgical changes and devices: None. Lungs and pleura: No pleural effusions or pneumothorax. Lungs are clear. Mediastinum: Mediastinal contours appear normal. Heart size is enlarged. Bones and chest wall: Status post median sternotomy and CABG. No suspicious bony lesions. Overlying soft tissues appear unremarkable. IMPRESSION: 1. Cardiomegaly. 2. No acute abnormality of the chest. Reviewed by: Alphonso Gonzalez on 05/04/2021 6:03 PM PDT Approved by: Alphonso Gonzalez on 05/04/2021 6:03 PM PDT Station ID: [id number]
--- NOTE | 2021-05-04 18:33 | CT Report ---
PROCEDURE: Abdomen/Pelvis WO INDICATIONS: diffuse abd pain TECHNIQUE: Noncontrast 5 mm thick sections acquired from the diaphragms to the symphysis. 5 mm coronal and sagi ttal reformats were then performed. For radiation dose reduction, the following was used: automated exposure control, adjustment of mA and/or kV according to patient size. COMPARISON: None. FINDINGS: Image quality: Excellent. ABDOMEN: Lung bases: There is mild bibasilar atelectasis. No focal consolidation or mass. Cardiac chambers are enlarged. The coronary arteries have atherosclerotic calcifications. Solid organs: Liver and spleen are normal in size. Gallbladder demonstrates a 1.5 cm stone. There i s no wall thickening or pericholecystic fluid. Pancreas is normal in contours. No adrenal nodules. The right kidney is normal. The left kidney has an irregular 3.8 x 3.0 cm opacity posterior to the ki dney within the pararenal space. Lateral to the kidney either is an area of increased attenuation in the fat, likely inflammation. There is a 3 mm calcification in the left pelvis which could possibly b e within the ureter, however there are multiple phleboliths and arterial calcifications also seen whi ch complicates identification Peritoneum and bowel: Throughout the peritoneum there are diffuse groundglass opacities with superimp osed multiple irregular ill-defined masses most adjacent to the bowel most measuring 2 to 3 cm. The l argest is anterior to the bifurcation and measures 4.5 cm in diameter. There is perihepatic ascites. The patchy areas of groundglass opacity appears similar to the opacity seen posterior to the kidney d escribed above which has an irregular poorly defined borders. No area suspicious for abscess identifi ed. Nodes and vessels: Enlarged peritoneal lymph nodes are present. A retrocrural lymph node measures 1.7 cm. Miscellaneous: No ventral hernias. PELVIS: Genitourinary: The bladder is decompressed with a Carrillo. There is air in the bladder likely from cath eterization. Miscellaneous: No inguinal hernias or adenopathy. Bones: No suspicious bony lesions. No vertebral body compression fractures. IMPRESSION: 1. Diffuse groundglass opacities with multiple irregular masses throughout the peritoneum and posteri or to the left kidney. A neoplastic process such as lymphoma is favored. 2. The sigmoid colon demonstrates diverticulosis with there is a surrounding inflammation which have the appearance of acute diverticulitis, however in consideration of other findings could be due to th e above described process. Reviewed by: Alphonso Gonzalez on 05/04/2021 6:31 PM PDT Approved by: Alphonso Gonzalez on 05/04/2021 6:31 PM PDT Station ID: [id number]
[2021-05-04 19:18] LABS: LACTIC ACID, VENOUS 4.4 mmol/L (0.5-2.2)
[2021-05-04] MEDS ORDERED: ONDANSETRON 4 MG/2 ML VIAL IVP PRN (20:40)
[2021-05-04] MEDS ORDERED: SODIUM CHLORIDE FLUSH 0.9% 10 ML SYRINGE IVP PRN (20:40)
[2021-05-04] MEDS ORDERED: PIPERACILLIN/TAZOBACTAM 3.375 GM in SODIUM CHLORIDE 0.9% MINIBAG 100 ML IV SCH (21:00)
--- NOTE | 2021-05-04 21:00 | HISTORY & PHYSICAL EXAMINATION ---
Chief Complaint - Chief Complaint Chief Complaint: Altered mental status History of Present Illness - Admitted From Admitted From:: ED - History Obtained From History obtained from: ED provider, old records, and son and [id number] at bedside - History of Present Illness HPI Comment/Other: This is an 81-year-old female of descent who lives at home with her . She has a history of cirrhosis of unknown etiology, CKD, history of remote CABG, chronic Cor pulmonale, chronic Afib, Hx of DVT on Eliquis in the past, GI bleed with scoping done at [facility] in 2019 that showed esophageal varices are present, and possible Hx of lymphoma diagnosed 2 years ago, per the 's report to the ED provider, but she had no treatment. The patient fell while getting out of the car 4 weeks ago and started to have right mid back pain. The pain got worse and she underwent x-rays that showed a compression fracture of her spinal vertebrae. With this she started to be less active and was mostly sitting in bed but she was still able to eat on her own. In the last few days her pain was so bad even with a heating pad and Motrin use, that her son had to come help the move her in bed. Over the last 4 days, she has been very weak and somnolent and taking in nearly no food and fluids for those last 4 days. She did take her scheduled Prednisone, but not her Lactulose. The drove her in to the ER today and she was found to have a blood pressure 50/30, was hypothermic with temperature 34 degrees C, with elevated white blood count of 12.2, and elevated Lactic Acid level of 6.1, therefore in septic shock. She was administered several liters of saline for aggressive crystalloid replacement and blood pressure has improved to 99 systolic. She was somnolent but arousable, and underwent a CT of the head that showed no acute findings. She had a CT of the abdomen/pelvis that showed probable diverticulitis as well as multiple groundglass opacities that are consistent with lymphoma. She has had blood cultures drawn and was started empirically on IV Zosyn. The ED provider spoke to the and also to the son and [id number] who requested that no aggressive measures be ordered for the patient, such as no CVP line, no intubation, no pressors, and no transfer for higher level of care. They are in agreement about wanting treatment for her with IV fluids and antibiotics. During her last admission here in July 2020, she was a Full Code. Today I discussed code status with the and 2 children, and she is a DNR/DNI. History - Past Medical History Cardiovascular: reports: Hypertension, High cholesterol, Coronary artery disease Respiratory: reports: None Neuro: reports: None Endocrine/Autoimmune: reports: Other (She is on Prednisone 20 mg every morning, ordered by her Clerk [employer]) GI: reports: GERD, Esophageal varices, GI bleed, Cirrhosis MRSA Hx?: No - Past Surgical History Cardiovascular: reports: CABG - Family & Social History Living arrangement: At home Living Situation: With spouse/s.o. Social History Notes: He is a non-smoker, drinks no alcohol and was never an alcohol abuser to explain the cirrhosis, uses no recreational drug. - Substance History Use: Uses substance without health or social issues: NONE - POLST Patient has POLST: No POLST Status: DNR Meds/Allgy - Home Medications Home Medications: Ambulatory Orders Medication Instructions Recorded Confirmed Fluocinonide/Emollient Base 15 gm TP BID 06/04/13 05/05/21 [Fluocinonide-Emol 0.05% Cream] Spironolactone 50 mg PO BID 07/31/20 05/05/21 Furosemide [Lasix] 60 mg PO DAILY 08/27/20 05/05/21 Aspirin [Aspirin EC] 81 mg PO DAILY 05/05/21 05/05/21 Ferrous Gluconate 324 mg PO DAILY 05/05/21 05/05/21 Lactulose 15 - 30 ml PO TID 05/05/21 05/05/21 Omeprazole [PriLOSEC] 40 mg PO BID 05/05/21 05/05/21 nadoloL [Corgard] 40 mg PO DAILY 05/05/21 05/05/21 predniSONE [Deltasone] 20 mg PO DAILY 05/05/21 05/05/21 - Allergies Allergies/Adverse Reactions: Allergies Allergy/AdvReac Type Severity Reaction Status Date / Time No Known Drug Allergies Allergy Verified 10/15/20 15:16 Review of Systems - Constitutional Constitutional: reports: Fatigue, Weakness, Poor appetite - All Other Systems All Other Systems: reports: Reviewed and negative Exam - Vital Signs Reviewed Vital Signs: Yes Vital Signs: Vital Signs x48h Temp Pulse Resp BP Pulse Ox 05/04/21 20:30 36.9 C 66 24 95/56 L 96 05/04/21 20:07 36.7 C 66 21 99/81 H 96 05/04/21 19:30 36.3 C L 68 19 93/61 97 05/04/21 19:04 36.2 C L 59 L 21 90/59 L 98 05/04/21 18:52 36.2 C L 65 20 84/56 L 97 05/04/21 17:30 35.8 C L 70 16 72/51 L 95 05/04/21 17:00 36.1 C L 72 19 92/61 98 05/04/21 16:30 36.2 C L 78 17 85/67 L 98 05/04/21 16:09 36.2 C L 72 15 87/53 L 98 05/04/21 15:15 36.6 C 70 16 85/54 L 99 - Physical Exam General Appearance: positive: No acute distress, Lethargic, Other (Sleeping soundly, awakens to painful stimuli) Eyes Bilateral: positive: Normal inspection ENT: positive: ENT inspection nml, Other (Oral mucosa not seen) Neck: positive: Nml inspection, No JVD Respiratory: positive: No respiratory distress, Breath sounds nml Cardiovascular: positive: No murmur, Irregularly irregular Abdomen: positive: Non-tender, Nml bowel sounds, Other (Mildly distended) Rectal: positive: Other (Urinary cath in place, draining mattie fluid) Skin: positive: Other (Multiple purple ecchymoses on both arms, too numerous to count) Extremities: positive: Other (Trace pre-tibial edema) Neurologic/Psychiatric: positive: Other (somnolent, awakens to pain, non-focal motor exam in ED) Sepsis Event Note (H) - Evaluation Current Stage of Sepsis: Septic shock Possible source of Sepsis: positive: GI tract/intra-abdominal - Sepsis Criteria Sepsis Criteria: Recorded Temperature greater than 38.3C or Less than 36C, WBC count greater than 12,000 or less than 4000, DIST[employer] WORKER: altered consciousness (unrelated to primary neuro pathology), SBP less than 90 mmHg, Metabolic: lactate > 2 mmol/L Conclusion/Plan - Problem List (1) Septic shock Conclusion/Plan: The source appears to be diverticulitis causing septic shock. Blood cultures were sent from the ED. Continue with aggressive IV saline resuscitation. She received 1 L of electrolyte solution bolused in the ED. We will be ordering iV fluids at 100 cc an hour (2400 cc over 1 day), since ordering 30 mL/kg (a 2100 cc bolus) would be detrimental for the patient despite hypotension and a lactic acid level of greater than 4, because she has advanced renal disease with a GFR of 8 on her current admission labs. Follow her lactate level until they normalize. Continue with empiric IV antibiotics; her GI tract appears to be the source therefore we will continue with Zosyn and will consider the addition of Flagyl if there is no improvement. Hold the Lasix, Nadolol and Spironolactone due to hypotension. Follow WBC daily. No plan for using pressors or transfer to the ICU, as requested by the family (2) Diverticulitis Conclusion/Plan: As above. I reviewed this and all diagnoses with the family in her room, while she slept. (3) AMS (altered mental status) Conclusion/Plan: This appears to be multifactorial: Due to elevated ammonia, due to hypotension and cerebral hypoperfusion, due to infection/hypothermia, due to uremia. We will continue with medical management for all the above diagnoses. Give stress dose steroids for 3 days, since she was on Prednisone 20 mg daily every mornig. Will order clear liquids and pureed food if she is awake enough to swallow. (4) Acute on chronic kidney failure Conclusion/Plan: Likely related to Lasix plus spironolactone use during the last 4 days when she has had nearly no p.o. liquids. Continue with IV fluids, slowing the rate eventually as her lactic acid normalizes because of the past history of CAD. Avoid nephrotoxins. Hold the Lasix and Spironolactone Follow BMP daily (5) Liver cirrhosis Conclusion/Plan: Will follow her LFTs and ammonia level daily. Will continue with lactulose dosing either p.o. or by enema, this was reviewed with the and family and they agree. Will continue to give steroids, to avoid Addisonian crisis. Will order stress dose iv hydrocortisone for 3 days. Will resume her Predniosone po when she can swallow. Qualifiers: Hepatic cirrhosis type: unspecified hepatic cirrhosis Ascites presence: with ascites Qualified Code(s): K74.60 - Unspecified cirrhosis of liver; R18.8 - Other ascites (6) Hyponatremia Conclusion/Plan: This is hypovolemic hyponatremia. Management will be with aggressive crystalloids as for the sepsis. Follow BMP daily (7) Lymphoma Conclusion/Plan: It appears this was not treated but known over the last 2 years. Qualifiers: Lymphoma type: unspecified type Lymphoma site: unspecified region Qualified Code(s): C85.90 - Non-Hodgkin lymphoma, unspecified, unspecified site (8) Esophageal varices determined by endoscopy Conclusion/Plan: Currently she is not anemic, has a high hemoglobin of 18 related to hemoconcentration from dehydration. Follow CBC daily (9) Chronic a-fib Conclusion/Plan: Her heart rate is controlled but she was on beta-svitlana. We will use IV beta-svitlana while she is unable to swallow her p.o. meds for rate control. We will continue with her baby aspirin daily orally or 300 mg per rectum daily (10) History of coronary artery disease Conclusion/Plan: Will resume her cardiac meds when blood pressure stabilizes - Lab Results Fish Bones: 05/05/21 04:45 05/05/21 04:45 - Diagnostic Imaging Results Diagnostic Imaging Results: positive: Prelim report reviewed - EKG Results EKG Interpreted Independently: Yes EKG Comparison: Unchanged from prior EKG EKG Findings: Afib, RBBB.
[2021-05-04] MEDS: SODIUM CHLORIDE 0.9% 1,000 ML IV SCH (22:04)
[2021-05-04 23:04] LABS: LACTIC ACID, VENOUS 2.9 mmol/L (0.5-2.2)
[2021-05-04] MEDS ORDERED: HYDROCORTISONE SUCCINATE 100 MG/2 ML VIAL IVP ONE (23:10)
--- NOTE | 2021-05-04 23:47 | ADVANCE CARE PLANNING NOTE ---
Advance Care Planning - Planning Encounter Date: 05/04/21 Time: 22:30 Purpose: To establish CODE STATUS Parties in Attendance: The patient was sleeping in bed, not awake or alert to participate. At the bedside, I spoke to her , son and the [id number]. Decisional Capacity of the Patient: She is currently somnolent and also she is admitted with altered mental status secondary to high ammonia level, hypotension and brain hypoperfusion suspected, uremia and hypothermia. For these reasons she is unable to make any decisions on her own. - Diagnosis for Encounter (1) Septic shock Summary: The patient is currently in critical condition, having been admitted with blood pressure 50/30, lactic acid 6.1, WBC 12.2, in TUAN, dehydrated and hemoconcen trated with hemoglobin 18. The source appears to be diverticulitis which was seen on CT of the abdomen pelvis. She is getting empiric IV antibiotics and aggressive saline resuscitation for septic shock. (2) Liver cirrhosis Qualifiers: Hepatic cirrhosis type: unspecified hepatic cirrhosis Ascites presence: with ascites Qualified Code(s): K74.60 - Unspecified cirrhosis of liver; R18.8 - Other ascites Summary: She has cirrhosis of undetermined etiology. She has seen a commissioner public works twice. She is compliant with taking Lasix, spironolactone and prednisone 20 mg daily. The commissioner public works has said to continue everything as is. The is able to administer the lactulose at different doses, tailoring it to have the patient have bowel movements 3 times a day minimum. In the last 4 days, while she was mostly somnolent and not taking food or fluid, it has been difficult to get her to take the Lactulose and she has refused it. She did somehow manage to swallow her Prednsione on schedule, he said. (3) Lymphoma Qualifiers: Lymphoma type: unspecified type Lymphoma site: unspecified region Qualified Code(s): C85.90 - Non-Hodgkin lymphoma, unspecified, unspecified site Summary: Multiple masses were seen on abdominal CT consistent with lymphoma. This was reported to the who mentioned to the ED provider that they have known about this for about 2 years and she has had no treatment. - Encounter Subjective/Patient's Story: The patient is cared for by her who administers her medications. In the last 4 days she has been mostly in bed. Prior to that for 3 weeks she has had progressively worsening pain in the mid back because of a newly diagnosed compression fracture of her vertebrae which happened when she fell as she was getting out of a car 4 weeks ago. No pain medications were ordered. She is only getting Motrin and heating pads to her back. Objective/Medical Story: Patient presented obtunded and in septic shock. Her altered mental status is from hepatic encephalopathy and uremia. She is in critical condition. The gravity of all her diagnosis was discussed with the , son and [id number] at this visit. At the last admission here, which was July 2020, the patient and her wanted her to have full aggressive management and to be Full CODE STATUS. She needed to be transferred to [facility] for GI blood loss anemia in this patient with known esophageal varices. When asked whether to perform CPR and defibrillation if she should have a cardiac arrest during this adm ission, the immediately answered that they have discussed and no ventilator, no ET tube insertion is desired. The son was able to then state that he knows CPR and cracking ribs can be very uncomfortable and he would not want this for his mother. After they spoke together briefly, the responded that he wants his to have DNR status, and to "let nature take its course if her heart would stop". Goals of Care: The wants her to be comfortable but also to get proper medical management, short of transferring her to a different hospital, or transferring her to the ICU for pressors and wants no CVP line. Plan: Will order DNR/DNI. Will plan to have sign a POLST form. Code Status: Do Not Attempt Resuscitation Time spent on advance care plannin min
[2021-05-05] MEDS: SODIUM CHLORIDE FLUSH 0.9% 10 ML SYRINGE IVP SCH ×4 (00:14→23:40)
[2021-05-05 02:41] LABS: LACTIC ACID, VENOUS 2.4 mmol/L (0.5-2.2)
[2021-05-05] MEDS ORDERED: PIPERACILLIN/TAZOBACTAM 2.25 GM in SODIUM CHLORIDE 0.9% MINIBAG 100 ML IV SCH (03:00)
[2021-05-05 05:08] LABS: BASOPHILS % (AUTO) 0.4 %; EOSINOPHILS # (AUTO) 0.3 10^3/uL (0.0-0.7); EOSINOPHILS % (AUTO) 2.4 %; HCT - HEMATOCRIT 43.5 % (37.0-47.0); HGB - HEMOGLOBIN 14.8 g/dL (12.0-16.0); LYMPHOCYTES # (AUTO) 0.8 10^3/uL (1.5-3.5); LYMPHOCYTES % (AUTO) 7.1 %; MEAN CORPUSCULAR HEMOGLOBIN 34.3 pg (27.0-31.0); MEAN CORPUSCULAR VOLUME 100.7 fL (81.0-99.0); MEAN PLATELET VOLUME 11.3 fL (7.9-10.8); MONOCYTES # (AUTO) 0.7 10^3/uL (0.0-1.0); NEUTROPHILS # (AUTO) 9.3 10^3/uL (1.5-6.6); NEUTROPHILS % (AUTO) 82.8 %; NRBC ABSOLUTE COUNT (AUTO) 0.17 x10^3/uL; NUCLEATED RED BLOOD CELLS AUTO 1.5 /100WBC; PLT - PLATELET COUNT 99 10^3/uL (130-450); RED BLOOD COUNT 4.32 10^6/uL (4.20-5.40); RED CELL DISTRIBUTION WIDTH 16.5 % (12.0-15.0); WHITE BLOOD COUNT 11.2 x10^3/uL (4.8-10.8)
[2021-05-05 05:11] LABS: INR 1.5 (0.8-1.2); PT - PROTHROMBIN TIME 15.8 secs (9.9-12.6)
[2021-05-05 05:22] LABS: ALBUMIN 2.3 g/dL (3.2-5.5); ALBUMIN/GLOBULIN RATIO 0.9 (1.0-2.2); BILIRUBIN,TOTAL 3.1 mg/dL (0.2-1.0); CALCIUM 9.1 mg/dL (8.5-10.3); CREATININE 4.4 mg/dL (0.4-1.0); POTASSIUM 4.4 mmol/L (3.5-5.0); TOTAL PROTEIN 4.9 g/dL (6.7-8.2)
[2021-05-05 06:08] LABS: LACTIC ACID, VENOUS 2.2 mmol/L (0.5-2.2)
[2021-05-05] MEDS: LACTULOSE 10 GM /15 ML UDC PO SCH ×3 (06:22→22:02)
--- NOTE | 2021-05-05 08:01 | PROVIDER PROGRESS NOTE ---
Assessment/Plan - Problem List (1) Septic shock Assessment/Plan: Secondary to diverticulitis. The patient is on Zosyn 3.375 g every 12 hours. She is receiving gentle IV hydration with normal saline at 100 mL/h. Patient's lactic acid is currently 2.8. Cannot aggressively hydrate this patient all administer fluids at 3 mL/kg because of patient's baseline liver cirrhosis. Furthermore patient had mild crackles at the time of admission and is at risk of Worsening respiratory status with aggressive hydration. Started blood pressure has been in the low 100 for most of today. Blood cultures pending. Currently we will hold any potential antihypertensives which include the patient's Lasix, nadolol and spironolactone. (2) Diverticulitis Assessment/Plan: Patient is on Zosyn 3.375 g IV twice daily. (3) AMS (altered mental status) Assessment/Plan: Likely multifactorial. Secondary to patient's septic state and liver cirrhosis. We will continue treating infection with antibiotic and IV hydration. Continue patient's lactulose. Stress dose steroids administered. (4) Acute on chronic kidney failure Assessment/Plan: Likely secondary to hypoperfusion related to patient's septic state and reatment of patient's liver cirrhosis which included Lasix and spironolactone Creatinine was 4.4 with estimated GFR of 10. Patient is receiving gentle IV hydration with normal saline at 100 mL/h. Lasix and spironolactone currently held Anticipate improvement with treatment of sepsis (5) Liver cirrhosis Qualifiers: Hepatic cirrhosis type: unspecified hepatic cirrhosis Ascites presence: without ascites Qualified Code(s): K74.60 - Unspecified cirrhosis of liver Assessment/Plan: Etiology unknown. Patient is on lactulose. However we will hold spironolactone and nadolol due to hypotension. Patient is on stress dose steroids with hydrocortisone for 3 days. We will then switch to her prednisone. (6) Hyponatremia Assessment/Plan: Improved/resolved. This was hypovolemic hyponatremia. Patient was administered normal saline and is currently on normal saline at 100 mL/h. (7) Lymphoma Qualifiers: Lymphoma type: unspecified type Lymphoma site: unspecified region Qualified Code(s): C85.90 - Non-Hodgkin lymphoma, unspecified, unspecified site Assessment/Plan: None by patient and family for the past 2 years. The follow up with oncology at [facility]. Currently undergoing no treatment. (8) Esophageal varices determined by endoscopy Assessment/Plan: Currently not anemic. On famotidine 20 mg IV daily. (9) Chronic a-fib Assessment/Plan: Currently rate controlled. However patient's beta-svitlana is held due to hypotension with sepsis. (10) History of coronary artery disease Assessment/Plan: Will resume her cardiac meds when blood pressure stabilizes - Current Meds Current Meds: Current Medications Generic Name Dose Route Start Last Admin Trade Name Freq PRN Reason Stop Dose Admin Sodium Chloride 1,000 mls @ 100 mls/hr 05/04/21 21:00 05/04/21 22:04 Normal Saline 0.9% IV 100 mls/hr .Q10H AMBROSE Administration Piperacillin Sod/Tazobactam 100 mls @ 200 mls/hr 05/05/21 03:00 05/05/21 03:50 Sod 2.25 gm/ Sodium Chloride IV Infused Q8H AMBROSE Infusion Lactulose 10 gm 05/05/21 06:00 05/05/21 06:22 Lactulose 10 Gm /15 Ml Udc PO 10 gm TID AMBROSE Administration Sodium Chloride 10 ml 05/05/21 01:00 05/05/21 00:14 Sodium Chloride Flush 0.9% 10 Ml Syringe IVP 10 ml 0100,0900,1700 AMBROSE Administration - Lab Result Fish Bone Diagrams: 05/05/21 04:45 05/05/21 04:45 Subjective - Subjective Patient Reports: Other (Patient is lethargic with waxing and waning mentation. She arouses to verbal stimuli. Is oriented to self and place but not reason or time.) Objective Vital Signs: Vital Signs - 24 hr 05/04/21 05/04/21 05/04/21 15:15 16:09 16:30 Temperature 36.6 C 36.2 C L 36.2 C L Heart Rate 70 72 78 Heart Rate [ Brachial] Heart Rate [ Radial] Respiratory 16 15 17 Rate Blood Pressure 85/54 L 87/53 L 85/67 L Blood Pressure [Left Brachial artery] Blood Pressure [Right Brachial artery] O2 Saturation 99 98 98 05/04/21 05/04/21 05/04/21 17:00 17:30 18:52 Temperature 36.1 C L 35.8 C L 36.2 C L Heart Rate 72 70 65 Heart Rate [ Brachial] Heart Rate [ Radial] Respiratory 19 16 20 Rate Blood Pressure 92/61 72/51 L 84/56 L Blood Pressure [Left Brachial artery] Blood Pressure [Right Brachial artery] O2 Saturation 98 95 97 05/04/21 05/04/21 05/04/21 19:04 19:30 20:07 Temperature 36.2 C L 36.3 C L 36.7 C Heart Rate 59 L 68 66 Heart Rate [ Brachial] Heart Rate [ Radial] Respiratory 21 19 21 Rate Blood Pressure 90/59 L 93/61 99/81 H Blood Pressure [Left Brachial artery] Blood Pressure [Right Brachial artery] O2 Saturation 98 97 96 05/04/21 05/04/21 05/04/21 20:30 21:00 21:39 Temperature 36.9 C 36.9 C 36.8 C Heart Rate 66 57 L Heart Rate [ Brachial] Heart Rate [ 63 Radial] Respiratory 24 18 21 Rate Blood Pressure 95/56 L 92/63 Blood Pressure 88/52 L [Left Brachial artery] Blood Pressure [Right Brachial artery] O2 Saturation 96 95 96 05/04/21 05/05/21 05/05/21 21:56 00:21 05:00 Temperature 36.4 C L 36.4 C L Heart Rate Heart Rate [ 64 Brachial] Heart Rate [ 58 L 59 L Radial] Respiratory 18 18 Rate Blood Pressure Blood Pressure 73/48 L [Left Brachial artery] Blood Pressure 84/50 L 88/54 L [Right Brachial artery] O2 Saturation 98 98 05/05/21 05:42 Temperature 36.4 C L Heart Rate 59 L Heart Rate [ Brachial] Heart Rate [ Radial] Respiratory 18 Rate Blood Pressure Blood Pressure [Left Brachial artery] Blood Pressure [Right Brachial artery] O2 Saturation 98 Oxygen O2 Source Room air I&O (Last 24 Hrs): Intake and Output Totals x24h 05/03/21 05/04/21 05/05/21 23:59 23:59 23:59 Intake Total 4445 300 Output Total 600 250 Balance 3845 50 General: Other (Oriented to self and place but not reason and time She is very weak) HEENT: PERRLA, EOMI Neck: Supple, No JVD Neuro: Non Focal Cardiovascular: Regular rate, Normal S1, Normal S2 Respiratory: Chest non-tender, No respiratory distress, Other (Sounds) Abdomen: Normal bowel sounds, Soft Extremities: No clubbing, No edema Comments/Notes: Bruising on upper extremities - Results Results: Laboratory Results WBC 11.2 x10^3/uL (4.8-10.8) H 05/05/21 04:45 RBC 4.32 10^6/uL (4.20-5.40) 05/05/21 04:45 Hgb 14.8 g/dL (12.0-16.0) 05/05/21 04:45 Hct 43.5 % (37.0-47.0) 05/05/21 04:45 MCV 100.7 fL (81.0-99.0) H 05/05/21 04:45 MCH 34.3 pg (27.0-31.0) H 05/05/21 04:45 MCHC 34.0 g/dL (32.0-36.0) 05/05/21 04:45 RDW 16.5 % (12.0-15.0) H 05/05/21 04:45 Plt Count 99 10^3/uL (130-450) L 05/05/21 04:45 MPV 11.3 fL (7.9-10.8) H 05/05/21 04:45 Neut # (Auto) 9.3 10^3/uL (1.5-6.6) H 05/05/21 04:45 Lymph # (Auto) 0.8 10^3/uL (1.5-3.5) L 05/05/21 04:45 [place] # (Auto) 0.7 10^3/uL (0.0-1.0) 05/05/21 04:45 Eos # (Auto) 0.3 10^3/uL (0.0-0.7) 05/05/21 04:45 Baso # (Auto) 0.0 10^3/uL (0.0-0.1) 05/05/21 04:45 Absolute Nucleated RBC 0.17 x10^3/uL 05/05/21 04:45 Nucleated RBC % 1.5 /100WBC 05/05/21 04:45 PT 15.8 secs (9.9-12.6) H 05/05/21 04:45 INR 1.5 (0.8-1.2) H 05/05/21 04:45 APTT 27.2 secs (24.9-33.3) 05/04/21 15:49 Sodium 139 mmol/L (135-145) 05/05/21 04:45 Potassium 4.4 mmol/L (3.5-5.0) 05/05/21 04:45 Chloride 109 mmol/L (101-111) 05/05/21 04:45 Carbon Dioxide 12 mmol/L (21-32) L* 05/05/21 04:45 Anion Gap 18.0 (6-13) H 05/05/21 04:45 BUN 138 mg/dL (6-20) H* 05/05/21 04:45 Creatinine 4.4 mg/dL (0.4-1.0) H 05/05/21 04:45 Estimated GFR (MDRD) 10 (>89) L 05/05/21 04:45 Glucose 83 mg/dL (70-100) 05/05/21 04:45 Lactic Acid 2.2 mmol/L (0.5-2.2) 05/05/21 05:48 Calcium 9.1 mg/dL (8.5-10.3) 05/05/21 04:45 Total Bilirubin 3.1 mg/dL (0.2-1.0) H 05/05/21 04:45 AST 70 IU/L (10-42) H 05/05/21 04:45 ALT 41 IU/L (10-60) 05/05/21 04:45 Alkaline Phosphatase 99 IU/L (42-121) 05/05/21 04:45 Ammonia 47.4 umol/L (7-35) H 05/05/21 04:45 Total Creatine Kinase 50 IU/L (22-269) 05/04/21 16:50 Total Protein 4.9 g/dL (6.7-8.2) L 05/05/21 04:45 Albumin 2.3 g/dL (3.2-5.5) L 05/05/21 04:45 Globulin 2.6 g/dL (2.1-4.2) 05/05/21 04:45 Albumin/Globulin Ratio 0.9 (1.0-2.2) L 05/05/21 04:45 Lipase 70 U/L (22-51) H 05/04/21 16:50 Urine Color YELLOW 05/04/21 16:16 Urine Clarity N (CLEAR) 05/04/21 16:16 Urine pH 5.5 PH (5.0-7.5) 05/04/21 16:16 Ur Specific [place] 1.025 (1.002-1.030) 05/04/21 16:16 Urine Protein NEGATIVE mg/dL (NEGATIVE) 05/04/21 16:16 Urine Glucose (UA) NEGATIVE mg/dL (NEGATIVE) 05/04/21 16:16 Urine Ketones NEGATIVE mg/dL (NEGATIVE) 05/04/21 16:16 Urine Occult Blood NEGATIVE (NEGATIVE) 05/04/21 16:16 Urine Nitrite NEGATIVE (NEGATIVE) 05/04/21 16:16 Urine Bilirubin NEGATIVE (NEGATIVE) 05/04/21 16:16 Urine Urobilinogen 0.2 (NORMAL) E.U./dL (NORMAL) 05/04/21 16:16 Ur Leukocyte Esterase NEGATIVE (NEGATIVE) 05/04/21 16:16 Ur Microscopic Review NOT INDICATED 05/04/21 16:16 Urine Culture Comments NOT INDICATED 05/04/21 16:16 Nasal Adenovirus (PCR) NOT DETECTED 05/04/21 16:36 Nasal B. parapertussis DNA (PCR) NOT DETECTED 05/04/21 16:36 Nasal Coronavir 229E PCR NOT DETECTED 05/04/21 16:36 Nasal Coronavir HKU1 PCR NOT DETECTED 05/04/21 16:36 Nasal Coronavir NL63 PCR NOT DETECTED 05/04/21 16:36 Nasal Coronavir OC43 PCR NOT DETECTED 05/04/21 16:36 Nasal Enterovir/Rhinovir PCR NOT DETECTED 05/04/21 16:36 Nasal Influenza B PCR NOT DETECTED 05/04/21 16:36 Nasal Influenza A PCR NOT DETECTED 05/04/21 16:36 Nasal Parainfluen 1 PCR NOT DETECTED 05/04/21 16:36 Nasal Parainfluen 2 PCR NOT DETECTED 05/04/21 16:36 Nasal Parainfluen 3 PCR NOT DETECTED 05/04/21 16:36 Nasal Parainfluen 4 PCR NOT DETECTED 05/04/21 16:36 Nasal RSV (PCR) NOT DETECTED 05/04/21 16:36 Nasal B.pertussis DNA PCR NOT DETECTED 05/04/21 16:36 Nasal C.pneumoniae (PCR) NOT DETECTED 05/04/21 16:36 Randy Human Metapneumo PCR NOT DETECTED 05/04/21 16:36 Nasal M.pneumoniae (PCR) NOT DETECTED 05/04/21 16:36 Nasal SARS-CoV-2 (PCR) NOT DETECTED 05/04/21 16:36 - Procedures Procedures: Procedures TRANSFUSE NONAUT RED BLOOD CELLS IN PERIPH VEIN, [facility] (07/30/20) Sepsis Event Note (H) - Evaluation Current Stage of Sepsis: Septic shock Possible source of Sepsis: positive: GI tract/intra-abdominal - Sepsis Criteria Sepsis Criteria: Recorded Temperature greater than 38.3C or Less than 36C, WBC count greater than 12,000 or less than 4000, LACQUER SHADER: altered consciousness (unrelated to primary neuro pathology), SBP less than 90 mmHg, Metabolic: lactate > 2 mmol/L ABX Reporting Has patient been on IV antibiotics over the past 48 hours?: Yes
[2021-05-05] MEDS: SODIUM CHLORIDE 0.9% 1,000 ML IV SCH ×2 (08:34→19:44)
[2021-05-05] MEDS: ASPIRIN 300 MG SUPP PR SCH (08:34)
[2021-05-05] MEDS: FAMOTIDINE 20 MG/2 ML VIAL IVP SCH (08:34)
[2021-05-05 10:07] LABS: LACTIC ACID, VENOUS 2.5 mmol/L (0.5-2.2)
[2021-05-05] MEDS: PIPERACILLIN/TAZOBACTAM 3.375 GM in SODIUM CHLORIDE 0.9% MINIBAG 100 ML IV SCH ×2 (10:11→22:03)
--- NOTE | 2021-05-05 10:33 | PHARMACY PROGRESS NOTE ---
- Best Possible Medication History Admit Date and Time: 05/04/212039 Processed by: Pharmacy Medication History completed: Yes Patient Interview: Completed Secondary Source(s): Written medication list (PATIENT'S PROVIDED LIST) As the person ultimately responsible for medication therapy, providers are able to order a medication from an existing home medication list in [facility] via the "Reconcile Routine" prior to Confirmation of that medication by application support. Such practice is discouraged except when the physician, in their clinical judgment, deems that a medical need exists for a medication without regard to previous use.
[2021-05-05] MEDS: ZINC OXIDE 20% OINT 30 GM TUBE TOP PRN ×4 (11:44→22:13)
[2021-05-05 13:37] LABS: LACTIC ACID, VENOUS 2.8 mmol/L (0.5-2.2)
[2021-05-05 16:56] LABS: LACTIC ACID, VENOUS 2.9 mmol/L (0.5-2.2)
[2021-05-05] MEDS ORDERED: SODIUM CHLORIDE 0.9% 500 ML IV ONE (23:09)
[2021-05-06] MEDS: metroNIDAZOLE 500 MG/100 ML 500 MG/100 ML BAG IV SCH ×2 (00:17→07:30)
[2021-05-06] MEDS ORDERED: VANCOMYCIN INJ 1.25 GM in SODIUM CHLORIDE 0.9% 250 ML IV ONE (01:00)
[2021-05-06 05:21] LABS: BASOPHILS % (AUTO) 0.3 %; EOSINOPHILS % (AUTO) 0.1 %; HCT - HEMATOCRIT 46.3 % (37.0-47.0); HGB - HEMOGLOBIN 15.8 g/dL (12.0-16.0); LYMPHOCYTES # (AUTO) 0.7 10^3/uL (1.5-3.5); LYMPHOCYTES % (AUTO) 5.6 %; MEAN CORPUSCULAR HEMOGLOBIN 34.5 pg (27.0-31.0); MEAN CORPUSCULAR HGB CONC 34.1 g/dL (32.0-36.0); MEAN CORPUSCULAR VOLUME 101.1 fL (81.0-99.0); MEAN PLATELET VOLUME 11.2 fL (7.9-10.8); MONOCYTES # (AUTO) 0.7 10^3/uL (0.0-1.0); MONOCYTES % (AUTO) 6.1 %; NEUTROPHILS # (AUTO) 10.4 10^3/uL (1.5-6.6); NRBC ABSOLUTE COUNT (AUTO) 0.21 x10^3/uL; NUCLEATED RED BLOOD CELLS AUTO 1.8 /100WBC; PLT - PLATELET COUNT 86 10^3/uL (130-450); RED BLOOD COUNT 4.58 10^6/uL (4.20-5.40); RED CELL DISTRIBUTION WIDTH 16.9 % (12.0-15.0)
[2021-05-06] MEDS: LACTULOSE 10 GM /15 ML UDC PO SCH ×3 (05:24→21:14)
[2021-05-06] MEDS: HYDROCORTISONE SUCCINATE 100 MG/2 ML VIAL IVP SCH ×3 (05:24→19:00)
[2021-05-06 05:39] LABS: ALBUMIN/GLOBULIN RATIO 0.8 (1.0-2.2); BILIRUBIN,TOTAL 2.6 mg/dL (0.2-1.0); CALCIUM 9.4 mg/dL (8.5-10.3); CREATININE 3.4 mg/dL (0.4-1.0); POTASSIUM 3.5 mmol/L (3.5-5.0); TOTAL PROTEIN 4.5 g/dL (6.7-8.2)
[2021-05-06] MEDS: SODIUM CHLORIDE 0.9% 1,000 ML IV SCH ×2 (06:20→14:48)
[2021-05-06] MEDS ORDERED: SODIUM CHLORIDE 0.9% 500 ML IV ONE ×2 (08:51→15:08)
--- NOTE | 2021-05-06 08:51 | PROVIDER PROGRESS NOTE ---
Assessment/Plan - Problem List (1) Septic shock Assessment/Plan: Patient's clinical condition appears worse today. Lactic acid 3.7, WBC 16, Temp 35 degree Celsius Secondary to diverticulitis. The patient is on Zosyn 3.375 g every 12 hours. She received a dose of vancomycin yesterday and today. According to current trough level and renal function, she will not require another dose for a couple of days. She is receiving gentle IV hydration with normal saline at 100 mL/h. C. difficile test pending After an episode of significant diarrhea which was presumably bloody Patient was given another bolus of 500 mL of normal saline. Repeat CT of the abdomen/pelvis without contrast was ordered. (2) Diverticulitis Assessment/Plan: Patient is on Zosyn 3.375 g IV twice daily. CT abdomen pelvis without contrast repeated due to increasing lactic acid of 3.7 and increasing white blood cell count of 16. Patient's septic state is worsening. Will evaluate for abscess or perf (4) Acute on chronic kidney failure Assessment/Plan: Slight improvement in renal function. Creatinine is 3.4 with estimated GFR of 13 Yesterday creatinine was 4.4 with estimated GFR of 10 Patient received a On fluids today. We will continue IV hydration with normal saline at 100 mL/h. (5) Liver cirrhosis Qualifiers: Hepatic cirrhosis type: unspecified hepatic cirrhosis Ascites presence: without ascites Qualified Code(s): K74.60 - Unspecified cirrhosis of liver (6) Hyponatremia Assessment/Plan: Improved/resolved. This was hypovolemic hyponatremia. Patient was administered normal saline and is currently on normal saline at 100 mL/h. (7) Lymphoma Qualifiers: Lymphoma type: unspecified type Lymphoma site: unspecified region Qualified Code(s): C85.90 - Non-Hodgkin lymphoma, unspecified, unspecified site (8) Esophageal varices determined by endoscopy Assessment/Plan: Currently not anemic. On famotidine 20 mg IV daily. (9) Chronic a-fib Assessment/Plan: Currently rate controlled. However patient's beta-svitlana is held due to hypotension with sepsis. (10) History of coronary artery disease Assessment/Plan: Will resume her cardiac meds when blood pressure stabilizes - Current Meds Current Meds: Current Medications Generic Name Dose Route Start Last Admin Trade Name Freq PRN Reason Stop Dose Admin Aspirin 300 mg 05/05/21 09:00 05/05/21 08:34 Aspirin 300 Mg Supp LA 300 mg DAILY AMBROSE Administration Famotidine 20 mg 05/05/21 09:00 05/05/21 08:34 Famotidine 20 Mg/2 Ml Vial IVP 20 mg DAILY AMBROSE Administration Hydrocortisone Sodium Succinate 50 mg 05/06/21 06:00 05/06/21 05:24 Hydrocortisone Succinate 100 Mg/2 Ml Vial IVP 50 mg Q6H AMBROSE Administration Sodium Chloride 1,000 mls @ 100 mls/hr 05/04/21 21:00 05/06/21 06:20 Normal Saline 0.9% IV 100 mls/hr .Q10H AMBROSE Administration Piperacillin Sod/Tazobactam 100 mls @ 25 mls/hr 05/05/21 10:00 05/06/21 02:17 Sod 3.375 gm/ Sodium Chloride IV Infused Q12H AMBROSE Infusion Lactulose 10 gm 05/05/21 06:00 05/06/21 05:24 Lactulose 10 Gm /15 Ml Udc PO 10 gm TID AMBROSE Administration Multi-Ingredient Ointment 1 applic 05/05/21 09:42 05/05/21 22:13 Zinc Oxide 20% Oint 30 Gm Tube TOP 1 applic PRN PRN Administration Skin Care Sodium Chloride 10 ml 05/05/21 01:00 05/05/21 23:40 Sodium Chloride Flush 0.9% 10 Ml Syringe IVP 10 ml 0100,0900,1700 AMBROSE Administration - Lab Result Fish Bone Diagrams: 05/06/21 11:50 05/06/21 05:14 - Additional Planning My Orders: My Active Orders 05/05/21 09:42 Zinc Oxide 20% Oint [Zinc Oxide] 1 applic TOP PRN PRN 05/05/21 10:00 Piperacillin/Tazobactam [Zosyn] 3.375 gm Sodium Chloride 0.9% Minibag [Normal Saline 0.9% Minibag] 100 ml IV Q12H 05/06/21 08:51 0.9% NS 500ML BOLUS X1 Sodium Chloride 0.9% [Normal Saline 0.9%] 500 ml IV ONCE Objective Vital Signs: Vital Signs - 24 hr 05/05/21 05/05/21 05/05/21 13:00 16:04 21:00 Temperature 36.6 C 36.1 C L 36.2 C L Heart Rate [ 62 53 L 55 L Brachial] Heart Rate [ Monitoring electrodes] Heart Rate [ Radial] Respiratory 18 23 21 Rate Blood Pressure 132/82 H [Left Brachial artery] Blood Pressure 109/58 L 112/77 [Right Brachial artery] Blood Pressure [Right Radial artery] O2 Saturation 96 99 99 05/05/21 05/06/21 05/06/21 23:40 04:33 07:45 Temperature 36.3 C L 36.5 C 35.0 C L Heart Rate [ 64 Brachial] Heart Rate [ 61 Monitoring electrodes] Heart Rate [ 55 L Radial] Respiratory 20 20 16 Rate Blood Pressure [Left Brachial artery] Blood Pressure 122/69 [Right Brachial artery] Blood Pressure 106/71 97/73 [Right Radial artery] O2 Saturation 98 97 100 Oxygen O2 Source Room air I&O (Last 24 Hrs): Intake and Output Totals x24h 05/04/21 05/05/21 05/06/21 23:59 23:59 23:59 Intake Total 4445 3270 2250 Output Total 600 850 350 Balance 3845 2420 1900 General: Alert, Other (Lethargic, weak Oriented X 2) HEENT: PERRLA, EOMI Neck: Supple, No JVD Neuro: Alert, Non Focal, Oriented Times 3 Cardiovascular: Other (Iregular rhythm) Respiratory: Chest non-tender, No respiratory distress, Breath sounds nml Abdomen: Normal bowel sounds, Soft, No tenderness, No masses Rectal: Bloody Stool Extremities: No clubbing, No cyanosis Comments/Notes: Extensive bruising in upper extremities bilaterally - Results Results: Laboratory Results WBC 12.0 x10^3/uL (4.8-10.8) H 05/06/21 05:14 RBC 4.58 10^6/uL (4.20-5.40) 05/06/21 05:14 Hgb 15.8 g/dL (12.0-16.0) 05/06/21 05:14 Hct 46.3 % (37.0-47.0) 05/06/21 05:14 MCV 101.1 fL (81.0-99.0) H 05/06/21 05:14 MCH 34.5 pg (27.0-31.0) H 05/06/21 05:14 MCHC 34.1 g/dL (32.0-36.0) 05/06/21 05:14 RDW 16.9 % (12.0-15.0) H 05/06/21 05:14 Plt Count 86 10^3/uL (130-450) L 05/06/21 05:14 MPV 11.2 fL (7.9-10.8) H 05/06/21 05:14 Neut # (Auto) 10.4 10^3/uL (1.5-6.6) H 05/06/21 05:14 Lymph # (Auto) 0.7 10^3/uL (1.5-3.5) L 05/06/21 05:14 [place] # (Auto) 0.7 10^3/uL (0.0-1.0) 05/06/21 05:14 Eos # (Auto) 0.0 10^3/uL (0.0-0.7) 05/06/21 05:14 Baso # (Auto) 0.0 10^3/uL (0.0-0.1) 05/06/21 05:14 Absolute Nucleated RBC 0.21 x10^3/uL 05/06/21 05:14 Nucleated RBC % 1.8 /100WBC 05/06/21 05:14 PT 15.8 secs (9.9-12.6) H 05/05/21 04:45 INR 1.5 (0.8-1.2) H 05/05/21 04:45 APTT 27.2 secs (24.9-33.3) 05/04/21 15:49 Sodium 143 mmol/L (135-145) 05/06/21 05:14 Potassium 3.5 mmol/L (3.5-5.0) 05/06/21 05:14 Chloride 117 mmol/L (101-111) H 05/06/21 05:14 Carbon Dioxide 11 mmol/L (21-32) L* 05/06/21 05:14 Anion Gap 15.0 (6-13) H 05/06/21 05:14 BUN 127 mg/dL (6-20) H* 05/06/21 05:14 Creatinine 3.4 mg/dL (0.4-1.0) H 05/06/21 05:14 Estimated GFR (MDRD) 13 (>89) L 05/06/21 05:14 Glucose 81 mg/dL (70-100) 05/06/21 05:14 Lactic Acid 2.5 mmol/L (0.5-2.2) H 05/06/21 05:14 Calcium 9.4 mg/dL (8.5-10.3) 05/06/21 05:14 Total Bilirubin 2.6 mg/dL (0.2-1.0) H 05/06/21 05:14 AST 65 IU/L (10-42) H 05/06/21 05:14 ALT 37 IU/L (10-60) 05/06/21 05:14 Alkaline Phosphatase 95 IU/L (42-121) 05/06/21 05:14 Ammonia 61.2 umol/L (7-35) H 05/06/21 05:14 Total Creatine Kinase 50 IU/L (22-269) 05/04/21 16:50 Total Protein 4.5 g/dL (6.7-8.2) L 05/06/21 05:14 Albumin 2.0 g/dL (3.2-5.5) L 05/06/21 05:14 Globulin 2.5 g/dL (2.1-4.2) 05/06/21 05:14 Albumin/Globulin Ratio 0.8 (1.0-2.2) L 05/06/21 05:14 Lipase 70 U/L (22-51) H 05/04/21 16:50 Urine Color YELLOW 05/04/21 16:16 Urine Clarity N (CLEAR) 05/04/21 16:16 Urine pH 5.5 PH (5.0-7.5) 05/04/21 16:16 Ur Specific [place] 1.025 (1.002-1.030) 05/04/21 16:16 Urine Protein NEGATIVE mg/dL (NEGATIVE) 05/04/21 16:16 Urine Glucose (UA) NEGATIVE mg/dL (NEGATIVE) 05/04/21 16:16 Urine Ketones NEGATIVE mg/dL (NEGATIVE) 05/04/21 16:16 Urine Occult Blood NEGATIVE (NEGATIVE) 05/04/21 16:16 Urine Nitrite NEGATIVE (NEGATIVE) 05/04/21 16:16 Urine Bilirubin NEGATIVE (NEGATIVE) 05/04/21 16:16 Urine Urobilinogen 0.2 (NORMAL) E.U./dL (NORMAL) 05/04/21 16:16 Ur Leukocyte Esterase NEGATIVE (NEGATIVE) 05/04/21 16:16 Ur Microscopic Review NOT INDICATED 05/04/21 16:16 Urine Culture Comments NOT INDICATED 05/04/21 16:16 Nasal Adenovirus (PCR) NOT DETECTED 05/04/21 16:36 Nasal B. parapertussis DNA (PCR) NOT DETECTED 05/04/21 16:36 Nasal Coronavir 229E PCR NOT DETECTED 05/04/21 16:36 Nasal Coronavir HKU1 PCR NOT DETECTED 05/04/21 16:36 Nasal Coronavir NL63 PCR NOT DETECTED 05/04/21 16:36 Nasal Coronavir OC43 PCR NOT DETECTED 05/04/21 16:36 Nasal Enterovir/Rhinovir PCR NOT DETECTED 05/04/21 16:36 Nasal Influenza B PCR NOT DETECTED 05/04/21 16:36 Nasal Influenza A PCR NOT DETECTED 05/04/21 16:36 Nasal Parainfluen 1 PCR NOT DETECTED 05/04/21 16:36 Nasal Parainfluen 2 PCR NOT DETECTED 05/04/21 16:36 Nasal Parainfluen 3 PCR NOT DETECTED 05/04/21 16:36 Nasal Parainfluen 4 PCR NOT DETECTED 05/04/21 16:36 Nasal RSV (PCR) NOT DETECTED 05/04/21 16:36 Nasal B.pertussis DNA PCR NOT DETECTED 05/04/21 16:36 Nasal C.pneumoniae (PCR) NOT DETECTED 05/04/21 16:36 Randy Human Metapneumo PCR NOT DETECTED 05/04/21 16:36 Nasal M.pneumoniae (PCR) NOT DETECTED 05/04/21 16:36 Nasal SARS-CoV-2 (PCR) NOT DETECTED 05/04/21 16:36 - Procedures Procedures: Procedures TRANSFUSE NONAUT RED BLOOD CELLS IN PERIPH VEIN, [facility] (07/30/20) Sepsis Event Note (H) - Evaluation Current Stage of Sepsis: Septic shock Possible source of Sepsis: positive: GI tract/intra-abdominal - Sepsis Criteria Sepsis Criteria: Recorded Temperature greater than 38.3C or Less than 36C, WBC count greater than 12,000 or less than 4000, IS SUPPORT ANALYST: altered consciousness (unrelated to primary neuro pathology), SBP less than 90 mmHg, Metabolic: lactate > 2 mmol/L ABX Reporting Has patient been on IV antibiotics over the past 48 hours?: Yes
[2021-05-06] MEDS: FAMOTIDINE 20 MG/2 ML VIAL IVP SCH (09:29)
[2021-05-06] MEDS: ASPIRIN 300 MG SUPP PR SCH ×2 (09:29→09:45)
[2021-05-06] MEDS: SODIUM CHLORIDE FLUSH 0.9% 10 ML SYRINGE IVP SCH ×2 (09:45→15:35)
[2021-05-06] MEDS: PIPERACILLIN/TAZOBACTAM 3.375 GM in SODIUM CHLORIDE 0.9% MINIBAG 100 ML IV SCH ×2 (11:09→21:14)
[2021-05-06 12:15] LABS: HCT - HEMATOCRIT 49.1 % (37.0-47.0); HGB - HEMOGLOBIN 16.1 g/dL (12.0-16.0); MEAN CORPUSCULAR HEMOGLOBIN 34.2 pg (27.0-31.0); MEAN CORPUSCULAR HGB CONC 32.8 g/dL (32.0-36.0); MEAN CORPUSCULAR VOLUME 104.2 fL (81.0-99.0); MEAN PLATELET VOLUME 10.5 fL (7.9-10.8); RED BLOOD COUNT 4.71 10^6/uL (4.20-5.40); RED CELL DISTRIBUTION WIDTH 17.6 % (12.0-15.0); WHITE BLOOD COUNT 16.4 x10^3/uL (4.8-10.8)
--- NOTE | 2021-05-06 17:44 | CT Report ---
PROCEDURE: Abdomen/Pelvis WO INDICATIONS: bloody diarrhea, worsening sepsis TECHNIQUE: Noncontrast 5 mm thick sections acquired from the diaphragms to the symphysis. 5 mm coronal and sagi ttal reformats were then performed. For radiation dose reduction, the following was used: automated exposure control, adjustment of mA and/or kV according to patient size. COMPARISON: CT abdomen/pelvis 05/04/2021 FINDINGS: Image quality: Mildly compromised by respiratory motion. Diagnostic information is obtained. ABDOMEN: Lung bases: Lung bases demonstrate atelectasis bilaterally. Heart size is enlarged. Solid organs: Liver and spleen are normal in size. Gallbladder contains a mobile gallstone, now loc ated in the fundus. Pancreas is normal in contours. No adrenal nodules. Kidneys are normal in size , without hydronephrosis or nephrolithiasis. Nodular soft tissue density is redemonstrated posterior to the left kidney that does not appear significantly changed in size when compared to the exam from 2 days prior. Peritoneum and bowel: Colonic diverticulosis is redemonstrated with mild bowel wall thickening and pe ridiverticular fat stranding in the sigmoid colon that appears similar when compared to the prior CT. There is no loculated or peripherally enhancing fluid collection identified. No pneumoperitoneum is seen. There is a small amount of ascites throughout the abdomen and pelvis that has mildly increased when compared to the prior CT. Nodular soft tissue densities are redemonstrated throughout the peritoneum that do not appear signifi cantly changed in size or number when compared to the prior CT, likely representing mesenteric lymph nodes. Additional lymphadenopathy is seen in the upper retroperitoneum and wendy hepatis region. The largest nodular focus is again located anterior to the left common iliac artery. Stable mildly enlarg ed retrocrural lymph node. Miscellaneous: No ventral hernias. There is worsening diffuse soft tissue anasarca. PELVIS: Genitourinary: The bladder is decompressed by a Carrillo catheter and contains air. Miscellaneous: No inguinal hernias or adenopathy. Bones: No suspicious bony lesions. Chronic appearing compression fractures are seen in the L1 and L3 levels. There is grade 1 anterolisthesis of L4 on L5. Multilevel degenerative changes are seen in th e spine. Levoconvex curvature of the lumbar spine is also noted. IMPRESSION: 1. Diffuse nodular densities throughout the peritoneal cavity and retroperitoneum are not significan tly changed in size or distribution compared to the CT from 2 days prior, again suspicious for a neop lastic process such as lymphoma. 2. Colonic diverticula with pericolonic fat stranding at the sigmoid colon that may be related to as cites or acute diverticulitis, not significantly changed when compared to the CT from 05/04/2021. No p neumoperitoneum or abscess is seen. 3. Signs of fluid overload including an increasing small volume of ascites and diffuse soft tissue a nasarca. Reviewed by: Cuong Macias MD on 05/06/2021 5:42 PM PDT Approved by: Cuong Macias MD on 05/06/2021 5:42 PM PDT Station ID: [id number]
[2021-05-06 19:58] LABS: HCT - HEMATOCRIT 46.8 % (37.0-47.0); HGB - HEMOGLOBIN 15.3 g/dL (12.0-16.0); MEAN CORPUSCULAR HEMOGLOBIN 34.9 pg (27.0-31.0); MEAN CORPUSCULAR HGB CONC 32.7 g/dL (32.0-36.0); MEAN CORPUSCULAR VOLUME 106.8 fL (81.0-99.0); MEAN PLATELET VOLUME 10.7 fL (7.9-10.8); RED BLOOD COUNT 4.38 10^6/uL (4.20-5.40); RED CELL DISTRIBUTION WIDTH 17.3 % (12.0-15.0); WHITE BLOOD COUNT 18.7 x10^3/uL (4.8-10.8)
[2021-05-06] MEDS: ZINC OXIDE 20% OINT 30 GM TUBE TOP PRN ×2 (20:08→21:14)
[2021-05-07] MEDS: HYDROCORTISONE SUCCINATE 100 MG/2 ML VIAL IVP SCH ×4 (00:22→17:55)
[2021-05-07] MEDS: SODIUM CHLORIDE FLUSH 0.9% 10 ML SYRINGE IVP SCH ×3 (00:26→17:55)
[2021-05-07] MEDS: SODIUM CHLORIDE 0.9% 1,000 ML IV SCH ×3 (01:40→19:14)
[2021-05-07 05:25] LABS: ALBUMIN 1.9 g/dL (3.2-5.5); ALBUMIN/GLOBULIN RATIO 0.7 (1.0-2.2); BILIRUBIN,TOTAL 2.7 mg/dL (0.2-1.0); CALCIUM 10.1 mg/dL (8.5-10.3); CREATININE 3.1 mg/dL (0.4-1.0); POTASSIUM 3.8 mmol/L (3.5-5.0); TOTAL PROTEIN 4.5 g/dL (6.7-8.2)
[2021-05-07] MEDS: LACTULOSE 10 GM /15 ML UDC PO SCH ×3 (05:45→22:06)
[2021-05-07 06:59] LABS: BASOPHILS % (AUTO) 0.2 %; EOSINOPHILS % (AUTO) 0.1 %; HCT - HEMATOCRIT 48.1 % (37.0-47.0); LYMPHOCYTES # (AUTO) 0.8 10^3/uL (1.5-3.5); LYMPHOCYTES % (AUTO) 4.5 %; MEAN CORPUSCULAR HEMOGLOBIN 34.3 pg (27.0-31.0); MEAN CORPUSCULAR HGB CONC 33.3 g/dL (32.0-36.0); MEAN PLATELET VOLUME 10.7 fL (7.9-10.8); MONOCYTES # (AUTO) 0.8 10^3/uL (0.0-1.0); MONOCYTES % (AUTO) 4.6 %; NEUTROPHILS # (AUTO) 16.3 10^3/uL (1.5-6.6); NEUTROPHILS % (AUTO) 89.6 %; NRBC ABSOLUTE COUNT (AUTO) 0.33 x10^3/uL; NUCLEATED RED BLOOD CELLS AUTO 1.8 /100WBC; PLT - PLATELET COUNT 81 10^3/uL (130-450); RED BLOOD COUNT 4.67 10^6/uL (4.20-5.40); RED CELL DISTRIBUTION WIDTH 17.7 % (12.0-15.0); WHITE BLOOD COUNT 18.2 x10^3/uL (4.8-10.8)
--- NOTE | 2021-05-07 07:23 | PROVIDER PROGRESS NOTE ---
Assessment/Plan - Problem List (1) Septic shock Assessment/Plan: Patient's clinical condition appears worse today. Lactic acid 4.1, WBC 18, Temp 35 degree Celsius, bicarbonate 8 Secondary to diverticulitis. Zosyn was discontinued and meropenem 1 g every 12 hours was initiated today. Patient was started on a bicarbonate drip. C. difficile test done yesterday was negative. Repeat CT scan of the abd/pelvis done yesterday did not show any new findings. Blood cultures repeated. Original blood cultures are no growth to date She received a dose of vancomycin 0n 05/05 and 05/06 According to current trough level and renal function, she will not require another dose for a couple of days. She is receiving gentle IV hydration with normal saline at 100 mL/h. I had a conversation with her at bedside explaining that the patient's overall clinical condition seem to be worsening. I would like to see if there would be any changes with the new antibiotics. If patient's condition continues to decline we will need to have a conversation regarding palliative versus comfort care. (2) Diverticulitis Assessment/Plan: Antibiotic was switched from Zosyn to meropenem 1 g every 12 hours today 05/07/21. Repeat CT of the abdomen/pelvis without contrast done yesterday 05/06 was negative for any new findings. (3) AMS (altered mental status) Assessment/Plan: No significant change in patient's mentation. She is mostly oriented to self place but not risen over time. This is likely secondary to liver disease and infection. (4) Acute on chronic kidney failure Assessment/Plan: Slight improvement in renal function. Creatinine is 3.1 with estimated GFR of 14 Yesterday creatinine was 3.4 with estimated GFR of 13 Patient received a On fluids today. We will continue IV hydration with normal saline at 100 mL/h. (5) Liver cirrhosis Qualifiers: Hepatic cirrhosis type: unspecified hepatic cirrhosis Ascites presence: wit hout ascites Qualified Code(s): K74.60 - Unspecified cirrhosis of liver Assessment/Plan: Etiology unknown. Patient is on lactulose. Spironolactone, lasix and nadolol held due to hypotension. Patient is on stress dose steroids with hydrocortisone for 1 day. We will then switch to her prednisone. (6) Hyponatremia Assessment/Plan: Improved/resolved. This was hypovolemic hyponatremia. Patient was administered normal saline and is currently on normal saline at 100 mL/h. (7) Lymphoma Qualifiers: Lymphoma type: unspecified type Lymphoma site: unspecified region Qualified Code(s): C85.90 - Non-Hodgkin lymphoma, unspecified, unspecified site (8) Esophageal varices determined by endoscopy Assessment/Plan: Currently not anemic. On famotidine 20 mg IV daily (9) Chronic a-fib Assessment/Plan: Currently rate controlled. However patient's beta-svitlana is held due to hypotension with sepsis. (10) History of coronary artery disease Assessment/Plan: Will resume her cardiac meds when blood pressure stabilizes - Current Meds Current Meds: Current Medications Generic Name Dose Route Start Last Admin Trade Name Freq PRN Reason Stop Dose Admin Aspirin 300 mg 05/05/21 09:00 05/06/21 09:45 Aspirin 300 Mg Supp CA Not Given DAILY AMBROSE Famotidine 20 mg 05/05/21 09:00 05/06/21 09:29 Famotidine 20 Mg/2 Ml Vial IVP 20 mg DAILY AMBROSE Administration Hydrocortisone Sodium Succinate 50 mg 05/06/21 06:00 05/07/21 05:46 Hydrocortisone Succinate 100 Mg/2 Ml Vial IVP 50 mg Q6H AMBROSE Administration Sodium Chloride 1,000 mls @ 100 mls/hr 05/04/21 21:00 05/07/21 01:40 Normal Saline 0.9% IV 100 mls/hr .Q10H AMBROSE Administration Lactulose 10 gm 05/05/21 06:00 05/07/21 05:45 Lactulose 10 Gm /15 Ml Udc PO 10 gm TID AMBROSE Administration Multi-Ingredient Ointment 1 applic 05/05/21 09:42 05/06/21 21:14 Zinc Oxide 20% Oint 30 Gm Tube TOP 1 applic PRN PRN Administration Skin Care Sodium Chloride 10 ml 05/05/21 01:00 05/07/21 00:26 Sodium Chloride Flush 0.9% 10 Ml Syringe IVP 10 ml 0100,0900,1700 AMBROSE Administration - Lab Result Fish Bone Diagrams: 05/07/21 06:48 05/07/21 04:31 - Additional Planning My Orders: My Active Orders 05/06/21 13:12 Miscellaenous Nursing Order [RC] ONCE 05/07/21 Blood Culture [CULTURE, BLOOD #1] [RM] Routine Blood Culture [CULTURE, BLOOD #2] [] Routine 05/07/21 07:16 LACTIC ACID, VENOUS [CHEM] Q4H 05/07/21 08:00 Dextrose 5% [D5w] 1,000 ml Sodium Bicarbonate 150 meq IV 100 mls/hr Meropenem [Merrem] 1 gm Sodium Chloride 0.9% Minibag [Normal Saline 0.9% Minibag] 100 ml IV Q12H 05/07/21 11:16 LACTIC ACID, VENOUS [CHEM] Q4H 05/07/21 14:00 BMP - BASIC METABOLIC PANEL [CHEM] Timed 05/07/21 15:16 LACTIC ACID, VENOUS [CHEM] Q4H Subjective - Subjective Patient Reports: Other (Patient was awake and appeared to be resting comfortably. She denies any pain. Diarrhea continues while on lactulose however some blood is noted in the stool. Likely from hemorrhoids.) Objective Vital Signs: Vital Signs - 24 hr 05/06/21 05/06/21 05/06/21 07:45 12:21 13:41 Temperature 35.0 C L 35.6 C L Heart Rate [ 53 L Monitoring electrodes] Heart Rate [ 55 L Radial] Respiratory 16 20 Rate Blood Pressure 97/73 105/70 [Right Radial artery] O2 Saturation 100 97 05/06/21 05/06/21 05/06/21 15:33 20:11 23:48 Temperature 35.6 C L 35.9 C L 36.3 C L Heart Rate [ Monitoring electrodes] Heart Rate [ 59 L 53 L 57 L Radial] Respiratory 21 22 18 Rate Blood Pressure 99/54 L 112/59 L 103/67 [Right Radial artery] O2 Saturation 94 98 97 05/07/21 05:00 Temperature 36.3 C L Heart Rate [ Monitoring electrodes] Heart Rate [ 56 L Radial] Respiratory 18 Rate Blood Pressure 109/65 [Right Radial artery] O2 Saturation 98 Oxygen O2 Source Room air I&O (Last 24 Hrs): Intake and Output Totals x24h 05/05/21 05/06/21 05/07/21 23:59 23:59 23:59 Intake Total 3270 4498.333 906.667 Output Total 850 825 120 Balance 2420 3673.333 786.667 General: Alert, Other (Lethargic, weak Oriented X 2) HEENT: PERRLA, EOMI Neck: Supple, No JVD Neuro: Alert, Non Focal Cardiovascular: Other (Iregularly iregular) Respiratory: Chest non-tender, No respiratory distress, Breath sounds nml Abdomen: Normal bowel sounds, Soft, No tenderness Rectal: Hemorrhoid Extremities: No clubbing, No cyanosis Comments/Notes: Extensive bruising in upper extremities bilaterally - Results Results: Laboratory Results WBC 18.2 x10^3/uL (4.8-10.8) H 05/07/21 06:48 RBC 4.67 10^6/uL (4.20-5.40) 05/07/21 06:48 Hgb 16.0 g/dL (12.0-16.0) 05/07/21 06:48 Hct 48.1 % (37.0-47.0) H 05/07/21 06:48 MCV 103.0 fL (81.0-99.0) H 05/07/21 06:48 MCH 34.3 pg (27.0-31.0) H 05/07/21 06:48 MCHC 33.3 g/dL (32.0-36.0) 05/07/21 06:48 RDW 17.7 % (12.0-15.0) H 05/07/21 06:48 Plt Count 81 10^3/uL (130-450) L 05/07/21 06:48 MPV 10.7 fL (7.9-10.8) 05/07/21 06:48 Neut # (Auto) 16.3 10^3/uL (1.5-6.6) H 05/07/21 06:48 Lymph # (Auto) 0.8 10^3/uL (1.5-3.5) L 05/07/21 06:48 [place] # (Auto) 0.8 10^3/uL (0.0-1.0) 05/07/21 06:48 Eos # (Auto) 0.0 10^3/uL (0.0-0.7) 05/07/21 06:48 Baso # (Auto) 0.0 10^3/uL (0.0-0.1) 05/07/21 06:48 Absolute Nucleated RBC 0.33 x10^3/uL 05/07/21 06:48 Nucleated RBC % 1.8 /100WBC 05/07/21 06:48 PT 15.8 secs (9.9-12.6) H 05/05/21 04:45 INR 1.5 (0.8-1.2) H 05/05/21 04:45 APTT 27.2 secs (24.9-33.3) 05/04/21 15:49 Sodium 143 mmol/L (135-145) 05/07/21 04:31 Potassium 3.8 mmol/L (3.5-5.0) 05/07/21 04:31 Chloride 118 mmol/L (101-111) H 05/07/21 04:31 Carbon Dioxide 8 mmol/L (21-32) L* 05/07/21 04:31 Anion Gap 17.0 (6-13) H 05/07/21 04:31 BUN 110 mg/dL (6-20) H* 05/07/21 04:31 Creatinine 3.1 mg/dL (0.4-1.0) H 05/07/21 04:31 Estimated GFR (MDRD) 14 (>89) L 05/07/21 04:31 Glucose 87 mg/dL (70-100) 05/07/21 04:31 Lactic Acid 4.0 mmol/L (0.5-2.2) H* 05/06/21 19:52 Calcium 10.1 mg/dL (8.5-10.3) 05/07/21 04:31 Total Bilirubin 2.7 mg/dL (0.2-1.0) H 05/07/21 04:31 AST 64 IU/L (10-42) H 05/07/21 04:31 ALT 37 IU/L (10-60) 05/07/21 04:31 Alkaline Phosphatase 102 IU/L (42-121) 05/07/21 04:31 Ammonia 48.8 umol/L (7-35) H 05/07/21 04:31 Total Creatine Kinase 50 IU/L (22-269) 05/04/21 16:50 Total Protein 4.5 g/dL (6.7-8.2) L 05/07/21 04:31 Albumin 1.9 g/dL (3.2-5.5) L 05/07/21 04:31 Globulin 2.6 g/dL (2.1-4.2) 05/07/21 04:31 Albumin/Globulin Ratio 0.7 (1.0-2.2) L 05/07/21 04:31 Lipase 70 U/L (22-51) H 05/04/21 16:50 Urine Color YELLOW 05/04/21 16:16 Urine Clarity N (CLEAR) 05/04/21 16:16 Urine pH 5.5 PH (5.0-7.5) 05/04/21 16:16 Ur Specific [place] 1.025 (1.002-1.030) 05/04/21 16:16 Urine Protein NEGATIVE mg/dL (NEGATIVE) 05/04/21 16:16 Urine Glucose (UA) NEGATIVE mg/dL (NEGATIVE) 05/04/21 16:16 Urine Ketones NEGATIVE mg/dL (NEGATIVE) 05/04/21 16:16 Urine Occult Blood NEGATIVE (NEGATIVE) 05/04/21 16:16 Urine Nitrite NEGATIVE (NEGATIVE) 05/04/21 16:16 Urine Bilirubin NEGATIVE (NEGATIVE) 05/04/21 16:16 Urine Urobilinogen 0.2 (NORMAL) E.U./dL (NORMAL) 05/04/21 16:16 Ur Leukocyte Esterase NEGATIVE (NEGATIVE) 05/04/21 16:16 Ur Microscopic Review NOT INDICATED 05/04/21 16:16 Urine Culture Comments NOT INDICATED 05/04/21 16:16 Nasal Adenovirus (PCR) NOT DETECTED 05/04/21 16:36 Nasal B. parapertussis DNA (PCR) NOT DETECTED 05/04/21 16:36 Nasal Coronavir 229E PCR NOT DETECTED 05/04/21 16:36 Nasal Coronavir HKU1 PCR NOT DETECTED 05/04/21 16:36 Nasal Coronavir NL63 PCR NOT DETECTED 05/04/21 16:36 Nasal Coronavir OC43 PCR NOT DETECTED 05/04/21 16:36 Nasal Enterovir/Rhinovir PCR NOT DETECTED 05/04/21 16:36 Nasal Influenza B PCR NOT DETECTED 05/04/21 16:36 Nasal Influenza A PCR NOT DETECTED 05/04/21 16:36 Nasal Parainfluen 1 PCR NOT DETECTED 05/04/21 16:36 Nasal Parainfluen 2 PCR NOT DETECTED 05/04/21 16:36 Nasal Parainfluen 3 PCR NOT DETECTED 05/04/21 16:36 Nasal Parainfluen 4 PCR NOT DETECTED 05/04/21 16:36 Nasal RSV (PCR) NOT DETECTED 05/04/21 16:36 Nasal B.pertussis DNA PCR NOT DETECTED 05/04/21 16:36 Nasal C.pneumoniae (PCR) NOT DETECTED 05/04/21 16:36 Randy Human Metapneumo PCR NOT DETECTED 05/04/21 16:36 Nasal M.pneumoniae (PCR) NOT DETECTED 05/04/21 16:36 Nasal SARS-CoV-2 (PCR) NOT DETECTED 05/04/21 16:36 Stl C. diff Tox B Gene NEGATIVE (NEGATIVE) 05/06/21 09:40 Blood Type Cancelled 05/06/21 12:05 Blood Type Recheck O POSITIVE 05/06/21 12:05 Antibody Screen Cancelled 05/06/21 12:05 - Procedures Procedures: Procedures TRANSFUSE NONAUT RED BLOOD CELLS IN PERIPH VEIN, [facility] (07/30/20) Sepsis Event Note (H) - Evaluation Current Stage of Sepsis: Septic shock Possible source of Sepsis: positive: GI tract/intra-abdominal - Sepsis Criteria Sepsis Criteria: Recorded Temperature greater than 38.3C or Less than 36C, WBC count greater than 12,000 or less than 4000, [employer]OF[employer]AL: altered consciousness (unrelated to primary neuro pathology), SBP less than 90 mmHg, Metabolic: [place] > 2 mmol/L, Hematologic: platelets < 100,000; INR > 1.5, or a PTT>60 seconds ABX Reporting Has patient been on IV antibiotics over the past 48 hours?: Yes
[2021-05-07] MEDS: MEROPENEM 1 GM in SODIUM CHLORIDE 0.9% MINIBAG 100 ML IV SCH ×2 (07:43→20:00)
[2021-05-07] MEDS: ASPIRIN 300 MG SUPP PR SCH (07:43)
[2021-05-07] MEDS: FAMOTIDINE 20 MG/2 ML VIAL IVP SCH (07:44)
[2021-05-07] MEDS: SODIUM BICARBONATE 150 MEQ in DEXTROSE 5% 1,000 ML IV SCH ×2 (08:23→19:53)
[2021-05-07 13:41] LABS: FECAL OCCULT BLOOD (FIT) POSITIVE (NEGATIVE)
[2021-05-07 14:24] LABS: HCT - HEMATOCRIT 49.8 % (37.0-47.0); MEAN CORPUSCULAR HEMOGLOBIN 34.4 pg (27.0-31.0); MEAN CORPUSCULAR HGB CONC 32.1 g/dL (32.0-36.0); MEAN CORPUSCULAR VOLUME 107.1 fL (81.0-99.0); MEAN PLATELET VOLUME 11.3 fL (7.9-10.8); RED BLOOD COUNT 4.65 10^6/uL (4.20-5.40); RED CELL DISTRIBUTION WIDTH 17.9 % (12.0-15.0); WHITE BLOOD COUNT 20.6 x10^3/uL (4.8-10.8)
[2021-05-07 14:59] LABS: CALCIUM 9.9 mg/dL (8.5-10.3); CREATININE 3.3 mg/dL (0.4-1.0); POTASSIUM 3.6 mmol/L (3.5-5.0)
[2021-05-07 15:27] LABS: INR 1.5 (0.8-1.2); PT - PROTHROMBIN TIME 15.8 secs (9.9-12.6)
[2021-05-07] MEDS ORDERED: SODIUM BICARBONATE 150 MEQ in DEXTROSE 5% 1,000 ML IV SCH (20:00)
[2021-05-08] MEDS: HYDROCORTISONE SUCCINATE 100 MG/2 ML VIAL IVP SCH ×2 (01:58→10:04)
[2021-05-08] MEDS: SODIUM CHLORIDE FLUSH 0.9% 10 ML SYRINGE IVP SCH ×3 (03:05→17:22)
[2021-05-08] MEDS: LACTULOSE 10 GM /15 ML UDC PO SCH (06:36)
[2021-05-08] MEDS: SODIUM CHLORIDE 0.9% 1,000 ML IV SCH (06:36)
[2021-05-08 07:25] LABS: BASOPHILS % (AUTO) 0.3 %; EOSINOPHILS % (AUTO) 0.2 %; HCT - HEMATOCRIT 47.7 % (37.0-47.0); HGB - HEMOGLOBIN 16.1 g/dL (12.0-16.0); LYMPHOCYTES % (AUTO) 4.7 %; MEAN CORPUSCULAR HEMOGLOBIN 34.6 pg (27.0-31.0); MEAN CORPUSCULAR HGB CONC 33.8 g/dL (32.0-36.0); MEAN CORPUSCULAR VOLUME 102.6 fL (81.0-99.0); MEAN PLATELET VOLUME 12.1 fL (7.9-10.8); MONOCYTES % (AUTO) 4.8 %; NEUTROPHILS % (AUTO) 88.2 %; PLT - PLATELET COUNT 66 10^3/uL (130-450); RED BLOOD COUNT 4.65 10^6/uL (4.20-5.40); RED CELL DISTRIBUTION WIDTH 17.7 % (12.0-15.0); WHITE BLOOD COUNT 22.8 x10^3/uL (4.8-10.8)
--- NOTE | 2021-05-08 07:25 | PROVIDER PROGRESS NOTE ---
Assessment/Plan - Problem List (1) Septic shock Assessment/Plan: Patient's clinical condition continued to worsen today. Lactic acid was 6.3 , WBCs 22, temperature 35 C. She has been on meropenem for the past 24 hours for sepsis secondary to diverticulitis. C. difficile test done yesterday was negative. Repeat CT scan of the abd/pelvis done yesterday did not show any new findings. Blood cultures repeated. Original blood cultures are no growth to date She received a dose of vancomycin on 05/05 and 05/06 I had a conversation with the patient's at bedside highlighting that multiple organs were failing despite our current treatment as demonstrated by the following: She is mainly oriented to self only. She has liver cirrhosis, renal failure (her creatinine remains 3.1, BUN 99, estimated GFR 14). She also has lymphoma I discussed the possibility of making the patient comfort care. I explained what comfort care would entail. Highlighting that we would discontinue any therapeutic measures and focus on comfort only. The patient's expressed understanding and was agreeable with this plan. Comfort care measures have been initiated. (2) Diverticulitis Assessment/Plan: Patient's clinical condition continued to worsen today. Lactic acid was 6.3 , WBCs 22, temperature 35 C. She has been on meropenem for the past 24 hours for sepsis secondary to diverticulitis. Comfort care measures have been initiated (3) AMS (altered mental status) Assessment/Plan: No change in patient's mentation. She is mostly oriented to self place but not reason or time. This is likely secondary to liver disease and infection. Patent was placed on comfort care measures today (4) Acute on chronic kidney failure Assessment/Plan: Creatinine 3.1, BUN 99, GFR 14 Fluids were discontinued Comfort care measures were initiated (5) Liver cirrhosis Qualifiers: Hepatic cirrhosis type: unspecified hepatic cirrhosis Ascites presence: without ascites Qualified Code(s): K74.60 - Unspecified cirrhosis of liver Assessment/Plan: Etiology unknown. On comfort care (7) Lymphoma Qualifiers: Lymphoma type: unspecified type Lymphoma site: unspecified region Qualified Code(s): C85.90 - Non-Hodgkin lymphoma, unspecified, unspecified site Assessment/Plan: Comfort measures - Current Meds Current Meds: Current Medications Generic Name Dose Route Start Last Admin Trade Name Freq PRN Reason Stop Dose Admin Famotidine 20 mg 05/05/21 09:00 05/07/21 07:44 Famotidine 20 Mg/2 Ml Vial IVP 20 mg DAILY AMBROSE Administration Hydrocortisone Sodium Succinate 50 mg 05/07/21 20:00 05/08/21 01:58 Hydrocortisone Succinate 100 Mg/2 Ml Vial IVP 50 mg Q8H AMBROSE Administration Meropenem 1 gm/ Sodium 100 mls @ 200 mls/hr 05/07/21 08:00 05/07/21 23:54 Chloride IV Infused Q12H AMBORSE Infusion Lactulose 10 gm 05/05/21 06:00 05/08/21 06:36 Lactulose 10 Gm /15 Ml Udc PO 10 gm TID AMBROSE Administration Multi-Ingredient Ointment 1 applic 05/05/21 09:42 05/06/21 21:14 Zinc Oxide 20% Oint 30 Gm Tube TOP 1 applic PRN PRN Administration Skin Care Sodium Chloride 10 ml 05/04/21 20:40 05/07/21 11:22 Sodium Chloride Flush 0.9% 10 Ml Syringe IVP 10 ml PRN PRN Administration NEEDED PER PROVIDER ORDERS Sodium Chloride 10 ml 05/05/21 01:00 05/08/21 03:05 Sodium Chloride Flush 0.9% 10 Ml Syringe IVP Not Given 0100,0900,1700 AMBROSE - Lab Result Fish Bone Diagrams: 05/08/21 07:08 05/08/21 07:08 - Additional Planning My Orders: My Active Orders 05/07/21 08:00 Meropenem [Merrem] 1 gm Sodium Chloride 0.9% Minibag [Normal Saline 0.9% Minibag] 100 ml IV Q12H 05/07/21 08:16 Blood Culture [CULTURE, BLOOD #1] [RM] Routine 05/07/21 09:16 Blood Culture [CULTURE, BLOOD #2] [] Routine 05/08/21 07:08 VANCOMYCIN RANDOM [CHEM] Timed Subjective - Subjective Patient Reports: Other (Patient's clinical condition continues to worsen today. She is only oriented to self. However she denies dyspnea, chest pain, abdominal pain, nausea or vomiting.) Objective Vital Signs: Vital Signs - 24 hr 05/07/21 05/07/21 05/07/21 08:00 08:19 11:18 Temperature 36.2 C L 35.8 C L Heart Rate [ Brachial] Heart Rate [ 66 Monitoring electrodes] Heart Rate [ 53 L Radial] Respiratory 17 Rate Blood Pressure 133/68 H [Left Radial artery] Blood Pressure 120/77 [Right Radial artery] O2 Saturation 99 05/07/21 05/07/21 05/07/21 13:15 15:39 20:29 Temperature 36.0 C L 36.2 C L Heart Rate [ 47 L Brachial] Heart Rate [ Monitoring electrodes] Heart Rate [ 109 H Radial] Respiratory 20 20 Rate Blood Pressure 110/66 119/82 H 127/80 [Left Radial artery] Blood Pressure [Right Radial artery] O2 Saturation 100 100 05/08/21 05/08/21 01:00 05:00 Temperature 35.8 C L 35.5 C L Heart Rate [ Brachial] Heart Rate [ Monitoring electrodes] Heart Rate [ 36 L 56 L Radial] Respiratory 24 24 Rate Blood Pressure 125/73 118/74 [Left Radial artery] Blood Pressure [Right Radial artery] O2 Saturation 98 96 Oxygen O2 Source Room air I&O (Last 24 Hrs): Intake and Output Totals x24h 05/06/21 05/07/21 05/08/21 23:59 23:59 23:59 Intake Total 4498.333 3743.334 2321.667 Output Total 825 670 175 Balance 3673.333 3073.334 2146.667 General: No acute distress, Other (Awake bute oriented to self only) HEENT: PERRLA, EOMI Neck: Supple, No JVD Neuro: Non Focal Cardiovascular: Other (Iregularly iregular, bradycardia) Respiratory: Chest non-tender, No respiratory distress, Breath sounds nml Abdomen: Normal bowel sounds, Soft, No tenderness Extremities: No clubbing Comments/Notes: Extensive bruising in upper extremities - Results Results: Laboratory Results WBC 20.6 x10^3/uL (4.8-10.8) H 05/07/21 13:58 RBC 4.65 10^6/uL (4.20-5.40) 05/07/21 13:58 Hgb 16.0 g/dL (12.0-16.0) 05/07/21 13:58 Hct 49.8 % (37.0-47.0) H 05/07/21 13:58 MCV 107.1 fL (81.0-99.0) H 05/07/21 13:58 MCH 34.4 pg (27.0-31.0) H 05/07/21 13:58 MCHC 32.1 g/dL (32.0-36.0) 05/07/21 13:58 RDW 17.9 % (12.0-15.0) H 05/07/21 13:58 Plt Count 72 10^3/uL (130-450) L 05/07/21 13:58 MPV 11.3 fL (7.9-10.8) H 05/07/21 13:58 Neut # (Auto) 16.3 10^3/uL (1.5-6.6) H 05/07/21 06:48 Lymph # (Auto) 0.8 10^3/uL (1.5-3.5) L 05/07/21 06:48 [place] # (Auto) 0.8 10^3/uL (0.0-1.0) 05/07/21 06:48 Eos # (Auto) 0.0 10^3/uL (0.0-0.7) 05/07/21 06:48 Baso # (Auto) 0.0 10^3/uL (0.0-0.1) 05/07/21 06:48 Absolute Nucleated RBC 0.33 x10^3/uL 05/07/21 06:48 Nucleated RBC % 1.8 /100WBC 05/07/21 06:48 PT 15.8 secs (9.9-12.6) H 05/07/21 14:07 INR 1.5 (0.8-1.2) H 05/07/21 14:07 APTT 27.2 secs (24.9-33.3) 05/04/21 15:49 Sodium 141 mmol/L (135-145) 05/07/21 13:58 Potassium 3.6 mmol/L (3.5-5.0) 05/07/21 13:58 Chloride 113 mmol/L (101-111) H 05/07/21 13:58 Carbon Dioxide 11 mmol/L (21-32) L* 05/07/21 13:58 Anion Gap 17.0 (6-13) H 05/07/21 13:58 BUN 90 mg/dL (6-20) H* 05/07/21 13:58 Creatinine 3.3 mg/dL (0.4-1.0) H 05/07/21 13:58 Estimated GFR (MDRD) 13 (>89) L 05/07/21 13:58 Glucose 120 mg/dL (70-100) H 05/07/21 13:58 Lactic Acid 6.3 mmol/L (0.5-2.2) H* 05/08/21 06:15 Calcium 9.9 mg/dL (8.5-10.3) 05/07/21 13:58 Total Bilirubin 2.7 mg/dL (0.2-1.0) H 05/07/21 04:31 AST 64 IU/L (10-42) H 05/07/21 04:31 ALT 37 IU/L (10-60) 05/07/21 04:31 Alkaline Phosphatase 102 IU/L (42-121) 05/07/21 04:31 Ammonia 54.8 umol/L (7-35) H 05/08/21 06:15 Total Creatine Kinase 50 IU/L (22-269) 05/04/21 16:50 Total Protein 4.5 g/dL (6.7-8.2) L 05/07/21 04:31 Albumin 1.9 g/dL (3.2-5.5) L 05/07/21 04:31 Globulin 2.6 g/dL (2.1-4.2) 05/07/21 04:31 Albumin/Globulin Ratio 0.7 (1.0-2.2) L 05/07/21 04:31 Lipase 70 U/L (22-51) H 05/04/21 16:50 Urine Color YELLOW 05/04/21 16:16 Urine Clarity N (CLEAR) 05/04/21 16:16 Urine pH 5.5 PH (5.0-7.5) 05/04/21 16:16 Ur Specific [place] 1.025 (1.002-1.030) 05/04/21 16:16 Urine Protein NEGATIVE mg/dL (NEGATIVE) 05/04/21 16:16 Urine Glucose (UA) NEGATIVE mg/dL (NEGATIVE) 05/04/21 16:16 Urine Ketones NEGATIVE mg/dL (NEGATIVE) 05/04/21 16:16 Urine Occult Blood NEGATIVE (NEGATIVE) 05/04/21 16:16 Urine Nitrite NEGATIVE (NEGATIVE) 05/04/21 16:16 Urine Bilirubin NEGATIVE (NEGATIVE) 05/04/21 16:16 Urine Urobilinogen 0.2 (NORMAL) E.U./dL (NORMAL) 05/04/21 16:16 Ur Leukocyte Esterase NEGATIVE (NEGATIVE) 05/04/21 16:16 Ur Microscopic Review NOT INDICATED 05/04/21 16:16 Urine Culture Comments NOT INDICATED 05/04/21 16:16 Nasal Adenovirus (PCR) NOT DETECTED 05/04/21 16:36 Nasal B. parapertussis DNA (PCR) NOT DETECTED 05/04/21 16:36 Nasal Coronavir 229E PCR NOT DETECTED 05/04/21 16:36 Nasal Coronavir HKU1 PCR NOT DETECTED 05/04/21 16:36 Nasal Coronavir NL63 PCR NOT DETECTED 05/04/21 16:36 Nasal Coronavir OC43 PCR NOT DETECTED 05/04/21 16:36 Nasal Enterovir/Rhinovir PCR NOT DETECTED 05/04/21 16:36 Nasal Influenza B PCR NOT DETECTED 05/04/21 16:36 Nasal Influenza A PCR NOT DETECTED 05/04/21 16:36 Nasal Parainfluen 1 PCR NOT DETECTED 05/04/21 16:36 Nasal Parainfluen 2 PCR NOT DETECTED 05/04/21 16:36 Nasal Parainfluen 3 PCR NOT DETECTED 05/04/21 16:36 Nasal Parainfluen 4 PCR NOT DETECTED 05/04/21 16:36 Nasal RSV (PCR) NOT DETECTED 05/04/21 16:36 Nasal B.pertussis DNA PCR NOT DETECTED 05/04/21 16:36 Nasal C.pneumoniae (PCR) NOT DETECTED 05/04/21 16:36 Randy Human Metapneumo PCR NOT DETECTED 05/04/21 16:36 Nasal M.pneumoniae (PCR) NOT DETECTED 05/04/21 16:36 Nasal SARS-CoV-2 (PCR) NOT DETECTED 05/04/21 16:36 Stl Occult Blood (IFOB) POSITIVE (NEGATIVE) A 05/07/21 13:00 Stl C. diff Tox B Gene NEGATIVE (NEGATIVE) 05/06/21 09:40 Blood Type Cancelled 05/06/21 12:05 Blood Type Recheck O POSITIVE 05/06/21 12:05 Antibody Screen Cancelled 05/06/21 12:05 - Procedures Procedures: Procedures TRANSFUSE NONAUT RED BLOOD CELLS IN PERIPH VEIN, [facility] (07/30/20) Sepsis Event Note (H) - Evaluation Current Stage of Sepsis: Septic shock Possible source of Sepsis: positive: GI tract/intra-abdominal - Sepsis Criteria Sepsis Criteria: Recorded Temperature greater than 38.3C or Less than 36C, WBC count greater than 12,000 or less than 4000, HEAD RIGGER: altered consciousness (unrelated to primary neuro pathology), SBP less than 90 mmHg, Metabolic: lactate > 2 mmol/L, Hematologic: platelets < 100,000; INR > 1.5, or a PTT>60 seconds ABX Reporting Has patient been on IV antibiotics over the past 48 hours?: No
[2021-05-08 07:28] LABS: SLIDE REVIEW? Indicated
[2021-05-08 07:29] LABS: ABNORMAL LYMPHS % (MANUAL) 0 %
[2021-05-08 07:36] VITALS: BP 104/65
[2021-05-08 07:40] LABS: VANCOMYCIN,RANDOM 14.1 ug/mL
[2021-05-08] MEDS: FAMOTIDINE 20 MG/2 ML VIAL IVP SCH (07:44)
[2021-05-08] MEDS: MEROPENEM 1 GM in SODIUM CHLORIDE 0.9% MINIBAG 100 ML IV SCH (07:44)
[2021-05-08 08:03] LABS: BAND NEUTROPHILS % (MANUAL) 1 %; LYMPHOCYTES # (MANUAL) 0.7 10^3/uL (1.5-3.5); LYMPHOCYTES % (MANUAL) 3 %; METAMYELOCYTES % (MANUAL) 1 %; MONOCYTES # (MANUAL) 0.2 10^3/uL (0.0-1.0); NEUTROPHILS # (MANUAL) 21.7 10^3/uL (1.5-6.6); NUCLEATED RBC (MANUAL) 9 %
[2021-05-08 08:11] LABS: DIFFERENTIAL COMMENT MANUAL DIFFERENTIAL; PLATELET ESTIMATE, MANUAL DECREASED (<130,000) (NORMAL); PLATELET MORPHOLOGY NORMAL APPEARANCE (NORMAL); WBC MORPHOLOGY (MULTIPLE) NORMAL APPEARANCE (NORMAL)
[2021-05-08 08:12] LABS: ALBUMIN 1.9 g/dL (3.2-5.5); ALBUMIN/GLOBULIN RATIO 0.7 (1.0-2.2); BILIRUBIN,TOTAL 2.4 mg/dL (0.2-1.0); CALCIUM 9.9 mg/dL (8.5-10.3); CREATININE 3.1 mg/dL (0.4-1.0); POTASSIUM 3.2 mmol/L (3.5-5.0); TOTAL PROTEIN 4.5 g/dL (6.7-8.2)
[2021-05-08] MEDS ORDERED: GLYCOPYRROLATE 1 MG/5 ML VIAL SUBQ PRN (11:01)
[2021-05-08] MEDS ORDERED: LORazepam 2 MG/ML VIAL IVP PRN (11:01)
[2021-05-08] MEDS: MORPHINE 2 MG/ML CARPUJECT IVP PRN (22:08)
[2021-05-08] MEDS ORDERED: MORPHINE 2 MG/ML CARPUJECT ONE (22:09)
[2021-05-09] MEDS: SODIUM CHLORIDE FLUSH 0.9% 10 ML SYRINGE IVP SCH (01:17)
[2021-05-09] MEDS: MORPHINE 2 MG/ML CARPUJECT IVP PRN ×2 (04:14→06:16)
[2021-05-09] MEDS ORDERED: MORPHINE 2 MG/ML CARPUJECT ONE ×2 (04:17→06:15)
--- NOTE | 2021-05-09 07:10 | DISCHARGE SUMMARY ---
Discharge Summary Admit Date: 05/03/21 Discharge Date: 05/09/21 Discharging Provider: Jackie Culp Primary Care Provider: Yvonne Navarro Code Status: Do Not Attempt Resuscitation Discharge Disposition: 20 - DIAGNOSES Admission Diagnoses: Septic shock Diverticulitis Altered mental status Acute on chronic kidney failure Liver cirrhosis Hyponatremia Lymphoma Esophageal varices determined by endoscopy Chronic atrial fibrillation History of coronary artery disease Discharge Diagnoses with Status of Each Condition: Septic shock: Patient Diverticulitis: Patient Altered mental status: Patient Acute on chronic kidney failure: Patient Liver cirrhosis: Patient Hyponatremia: Patient Lymphoma: Patient Esophageal varices determined by endoscopy: Patient Chronic atrial fibrillation: Patient History of coronary artery disease: Patient - HPI History of Present Illness: This is an 81-year-old female of descent who lives at home with her . She has a history of cirrhosis of unknown etiology, CKD, history of remote CABG, chronic Cor pulmonale, chronic Afib, Hx of DVT on Eliquis in the past, GI bleed with scoping done at [facility] in 2019 that showed esophageal varices are present, and possible Hx of lymphoma diagnosed 2 years ago, per the 's report to the ED provider, but she had no treatment. The patient fell while getting out of the car 4 weeks ago and started to have right mid back pain. The pain got worse and she underwent x-rays that showed a compression fracture of her spinal vertebrae. With this she started to be less active and was mostly sitting in bed but she was still able to eat on her own. In the last few days her pain was so bad even with a heating pad and Motrin use, that her son had to come help the move her in bed. Over the last 4 days, she has been very weak and somnolent and taking in nearly no food and fluids for those last 4 days. She did take her scheduled Prednisone, but not her Lactulose. The drove her in to the ER today and she was found to have a blood pressure 50/30, was hypothermic with temperature 34 degrees C, with elevated white blood count of 12.2, and elevated Lactic Acid level of 6.1, therefore in septic shock. She was administered several liters of saline for aggressive crystalloid replacement and blood pressure has improved to 99 systolic. She was somnolent but arousable, and underwent a CT of the head that showed no acute findings. She had a CT of the abdomen/pelvis that showed probable diverticulitis as well as multiple groundglass opacities that are consistent with lymphoma. She has had blood cultures drawn and was started empirically on IV Zosyn. The ED provider spoke to the and also to the son and [id number] who requested that no aggressive measures be ordered for the patient, such as no CVP line, no intubation, no pressors, and no transfer for higher level of care. They are in agreement about wanting treatment for her with IV fluids and antibiotics. During her last admission here in July 2020, she was a Full Code. Today I discussed code status with the and 2 children, and she is a DNR/DNI. - HOSPITAL COURSE Hospital Course: Patient was admitted to the [facility] floor and started on Zosyn. She also received a loading doses of vancomycin IV on 05/04 and 05/05. She received aggressive IV hydration through the course of her hospital stay. Despite this treatment, the patient's clinical status continued to decline. As a result the Zosyn was discontinued and meropenem was initiated. The patient's lactic acid initially improved from 6.1 down to 2.2 on 05/05. However it steadily increased over the course of 3 days back to 6.3 despite being on a bicarb drip for almost 24 h. Despite broad-spectrum antibiotics her white blood cell count increased from 12 up to 22.8. Her platelets steadily dropped to 66. She had a couple of bowel movements which were guaiac positive. She was mainly oriented to self and easily/readily does or lost focus. She was weak/lethargic. She had extensive bruising in her upper extremities. Her renal function remained poor. Her estimated GFR fluctuated between 8 and 14. Her blood cultures were repeated and showed no growth. On 05/08/21 I had a conversation with the patient's at bedside highlighting that multiple organs were failing despite our current treatment as demonstrated by the following: She is mainly oriented to self only. She has liver cirrhosis, renal failure (her creatinine remains 3.1, BUN 99, estimated GFR 14). She also has lymphoma I discussed the possibility of making the patient comfort care. I explained what comfort care would entail. Highlighting that we would discontinue any therapeutic measures and focus on comfort only. The patient's expressed understanding and was agreeable with this plan. Comfort care measures were initiated. On 05/09/21 at 7:00 AM it was brought to my attention that the patient was unresponsive at 06:30AM. On examination she was unresponsive to verbal or tactile stimuli. There was no heart or breath sounds on auscultation. Carotid and radial pulses were absent bilaterally. Her pupils were dilated fixed and unreactive to light. There was no corneal reflex. The patient was pronounced on 05/09/2021 at 6:30 AM - ALLERGIES Allergies/Adverse Reactions: Allergies Allergy/AdvReac Type Severity Reaction Status Date / Time No Known Drug Allergies Allergy Verified 10/15/20 15:16 - MEDICATIONS Home Medications: Ambulatory Orders Medication Instructions Recorded Confirmed Fluocinonide/Emollient Base 15 gm TP BID 06/04/13 05/05/21 [Fluocinonide-Emol 0.05% Cream] Spironolactone 50 mg PO BID 07/31/20 05/05/21 Furosemide [Lasix] 60 mg PO DAILY 08/27/20 05/05/21 Aspirin [Aspirin EC] 81 mg PO DAILY 05/05/21 05/05/21 Ferrous Gluconate 324 mg PO DAILY 05/05/21 05/05/21 Lactulose 15 - 30 ml PO TID 05/05/21 05/05/21 Omeprazole [PriLOSEC] 40 mg PO BID 05/05/21 05/05/21 nadoloL [Corgard] 40 mg PO DAILY 05/05/21 05/05/21 predniSONE [Deltasone] 20 mg PO DAILY 05/05/21 05/05/21 - LABS Result Diagrams: 05/08/21 07:08 05/08/21 07:08 - SEPSIS Current Stage of Sepsis: Septic shock Possible source of Sepsis: GI tract/intra-abdominal Sepsis Criteria: Recorded Temperature greater than 38.3C or Less than 36C, WBC count greater than 12,000 or less than 4000, [employer]: altered consciousness (unrelated to primary neuro pathology), SBP less than 90 mmHg, Metabolic: lac evans > 2 mmol/L, Hematologic: platelets < 100,000; INR > 1.5, or a PTT>60 seconds - TIME SPENT Time Spent in Discharge (Minutes): 25
--- NOTE | 2021-05-09 07:10 | Discharge Plan ---
Discharge Plan Problem Reviewed?: Yes Disposition: 20 No Smoking: If you smoke, Please STOP! Call for help. Follow-up with: Funmilayo Navarro DO [Primary Care Provider] -
== END 2021-05-09 06:30 | disposition expired | DRG 871 ==
LOC: ED 14:54 → MS3 20:40 → MS2 05-07 10:29
PROVIDERS: ADMIT Internal Medicine; ATTEND Internal Medicine
DX: A41.9 Sepsis, unspecified organism (principal); R65.21 Severe sepsis with septic shock; K57.32 Diverticulitis of large intestine without perforation or abscess without bleeding; N17.9 Acute kidney failure, unspecified; E87.1 Hypo-osmolality and hyponatremia; C85.90 Non-Hodgkin lymphoma, unspecified, unspecified site; R18.8 Other ascites; K57.30 Diverticulosis of large intestine without perforation or abscess without bleeding; I48.20 Chronic atrial fibrillation, unspecified; I85.00 Esophageal varices without bleeding; Z20.822 Contact with and (suspected) exposure to COVID-19; I10 Essential (primary) hypertension; K21.9 Gastro-esophageal reflux disease without esophagitis; Z91.81 History of falling; R19.7 Diarrhea, unspecified; Z95.1 Presence of aortocoronary bypass graft; L98.8 Other specified disorders of the skin and subcutaneous tissue; J01.30 Acute sphenoidal sinusitis, unspecified; J32.3 Chronic sphenoidal sinusitis; R68.0 Hypothermia, not associated with low environmental temperature; R41.82 Altered mental status, unspecified; I12.9 Hypertensive chronic kidney disease with stage 1 through stage 4 chronic kidney disease, or unspecified chronic kidney disease; N18.9 Chronic kidney disease, unspecified; K74.60 Unspecified cirrhosis of liver; E86.0 Dehydration; Z79.01 Long term (current) use of anticoagulants; I25.10 Atherosclerotic heart disease of native coronary artery without angina pectoris; I95.9 Hypotension, unspecified; Z79.52 Long term (current) use of systemic steroids; Z79.899 Other long term (current) drug therapy; Z66 Do not resuscitate; Z51.5 Encounter for palliative care; S32.009D Unspecified fracture of unspecified lumbar vertebra, subsequent encounter for fracture with routine healing; V48.4XXD Person boarding or alighting a car injured in noncollision transport accident, subsequent encounter
CPT/HCPCS: 36415; 70450; 71045; 74176; 80048; 80053; 80202; 81003; 82140; 82272; 82274; 82550; 83605; 83690; 85025; 85027; 85610; 85730; 87040; 87493; 87631; 93005; 96361; 96365; 96366; 96368; 99285; A9270; J2185; J3370; 0202U; 81001; 86850; 86900; 86901; 87086